=== PATIENT | female | born 1935 | race Caucasian/White ===

== ENCOUNTER 2016-12-16 00:19 | Inpatient (IN) | payer OTHER, MEDICAID ==
[~2016-12-16] VITALS: Ht 167.6 cm; Wt 89.8 kg
[2016-12-16] VITALS (17 sets, daily range): BP systolic 96–150; BP diastolic 41–101; PULSE 51–89; RESP 16–20; TEMP 97.2–98.7; O2SAT 93–100
[~2016-12-16 00:19] MED LIST: ACET325T53 PO; ACET80DR54 GT; ALBU2.5V7 INH; ALPR0.2583 PO; ALPR1TAB7 PO; ANT30 GT; BEN50 PO; BENA20TA2 PO; CARV25TA55 PO; CAT.2 PO; CEL20 GT; CHLO473M5 PO; CLON0.2T PO; CLON0.5T4 GT; CLON1PAT8 TD; DOCU-144 PO; DONE5TAB3 GT; DULR10 RC; FAMO20TA98 PO; FERR-57 GT; FURO40TA5 PO; HYDR-1189 PO; HYDR10SY GT; HYDR25TA4 PO; IPRA0.2S6 INH; KLO.5 PO; LACT1CAP69 GT; LANS30CA10 PO; LEVO100T9 PO; LEVO175T7 PO; LEVO75TA7 GT; LEVOXYL PO; LORA-672 GT; MAGN400O4 GT; MAGN400O4 PO; MORP15TA PO; MORP30TA PO; MORP30TA63 PO; MULT PO; NEBI10TA2 PO; NEBI5TAB3 PO; NIFE-2 GT; OMEP20CA10 PO; VIT500LI PO; WARF2.5T2 PO; ZOLP5TAB7 GT
--- NOTE | 2016-12-16 00:26 | NUR ---
Patient to ER bed 4 to gown for evaluation. Side rails up. Assumed care of pt.
--- NOTE | 2016-12-16 00:28 | NUR ---
Pt brought in by ALS ambulance from [facility] for report of "not looking right". Pt has trach, currently on 3L O2. Pt not able to speak but can mouth words. Pt resting with eyes closed, responds to verbal and physical stimuli. Pt able to mouth that she is in hospital and that she is cold. Pt denies any pain. Asked pt to squeeze fingers, pt able to follow command. Pt respirations even and unlabored. VSS. Will continue to monitor.
[2016-12-16] MEDS ORDERED: KETOROLAC TROMETHAMINE 30 MG VIAL IVP ONE (00:30)
[2016-12-16] MEDS ORDERED: NACL 0.9% 1,000 ML IV ONE (00:30)
--- NOTE | 2016-12-16 00:31 | NUR ---
ER at bedside examining patient.
[2016-12-16 01:15] LABS: MEAN CORPUSCULAR VOLUME 106 fL (79.0-98.0)
[2016-12-16 01:23] LABS: CALCIUM 8.6 mg/dL (8.4-11.0); CHLORIDE 104 mmol/L (98-107); CREATININE 2.82 mg/dL (0.55-1.30); GLUCOSE 115 mg/dL (70-99); HEMATOCRIT 37.4 % (36-48); HEMOGLOBIN 11.7 g/dL (12.0-16.0); MEAN CORPUSCULAR HEMOGLOBIN 33 pg (27-31); MEAN CORPUSCULAR HGB CONC 31 % (32-36); PLATELET COUNT (AUTO) 221 K/uL (130-430); RED BLOOD CELL COUNT(AUTO) 3.54 MIL/uL (4.2-6.2); RED CELL DISTRIBUTION WIDTH 14.6 % (9.0-15.0); SODIUM SERUM 134 mmol/L (136-145); UREA NITROGEN, BLOOD 43 mg/dL (8-21); WHITE BLOOD COUNT (AUTO) 8.2 K/uL (4.8-10.8)
[2016-12-16 01:24] LABS: INR 1.5 (0.8-1.2)
[2016-12-16 01:27] LABS: ALANINE AMINOTRANSFERASE 22 U/L (12-78); ALBUMIN 3.2 g/dL (3.4-4.8); ASPARTATE AMINOTRANSFERASE 17 U/L (10-37); LIPASE 199 U/L (73-393); TOTAL BILIRUBIN 0.2 mg/dL (0.0-1.0); TOTAL PROTEIN, SERUM 7.3 g/dL (6.4-8.3)
[2016-12-16 01:36] LABS: ANION GAP < 3 (5-15); POTASSIUM 6.6 mmol/L (3.5-5.1)
[2016-12-16 01:48] LABS: BAND % (MANUAL) 2 % (0-6); BASOPHILS % (MANUAL) 0 % (0-2); EOSINOPHILS % (MANUAL) 5 % (0-7); LYMPHOCYTES % (MANUAL) 20 % (20-46); MONOCYTES % (MANUAL) 7 % (0-11)
[2016-12-16 01:48] LABS: BILIRUBIN,URINE NEGATIVE (NEGATIVE); CLARITY/URINE SL CLOUDY (CLEAR); COLOR,URINE YELLOW (YELLOW); GLUCOSE,URINE NEGATIVE (NEGATIVE); KETONES,URINE NEGATIVE (NEGATIVE); LEUKOCYTE ESTERASE ,URINE 3+ (NEGATIVE); NITRITE, URINE NEGATIVE (NEGATIVE); PH,URINE 7.5 (5.0-8.0); PROTEIN URINE TRACE (NEGATIVE); UROBILINOGEN,URINE 0.2 (0.2-1.0)
--- NOTE | 2016-12-16 01:59 | NUR ---
Patient resting quietly, no acute changes noted. No acute distress noted. Vital signs within normal range. Will continue to monitor.
[2016-12-16 02:01] LABS: BLOOD, URINE TRACE (NEGATIVE)
[2016-12-16 02:02] LABS: BACTERIA,URINE MODERATE /HPF (None Seen); WBC,URINE 50-80 /HPF (0-3)
[2016-12-16 02:03] LABS: FINE GRANULAR CASTS,URINE 0-10 /LPF (None Seen); MUCUS,URINE None Seen /LPF (None Seen)
[2016-12-16] MEDS ORDERED: DIPHENHYDRAMINE HCL 50 MG CAPSULE PO PRN (03:30)
[2016-12-16] MEDS ORDERED: ZOLPIDEM TARTRATE 5 MG TABLET PO PRN (03:30)
[2016-12-16] MEDS ORDERED: ALBUTEROL SULFATE 0.083% 2.5 MG/3 ML VIAL.NEB INH PRN (03:30)
[2016-12-16] MEDS ORDERED: MILK OF MAGNESIA 30 ML UDC PO PRN (03:30)
[2016-12-16] MEDS ORDERED: HYDROcodone/ACETAMIN 5-325 MG TAB (NORCO/ VICODIN) PO SCH (03:30)
[2016-12-16] MEDS ORDERED: clonazePAM 0.5 MG TABLET PO PRN (03:30)
[2016-12-16] MEDS ORDERED: ACETAMINOPHEN 325 MG TABLET PO PRN (03:30)
--- NOTE | 2016-12-16 03:53 | NUR ---
Patient resting quietly. No acute distress noted. Vital signs within normal range. Will continue to monitor.
[2016-12-16] MEDS ORDERED: IPRATROPIUM/ALBUTEROL SULFATE 3 ML AMPUL.NEB INH ONE (04:00)
[2016-12-16] MEDS ORDERED: SODIUM BICARBONATE 8.4% JECT 50 MEQ/50 ML SYRINGE IVP ONE (04:00)
--- NOTE | 2016-12-16 04:01 | NUR ---
Pt receiving breathing tx in ED. Waiting for tx to finish to transfer pt to the floor.
--- NOTE | 2016-12-16 04:10 | NUR ---
Patient will be admitted to care of . Admitted to Tele unit. Will go to room 131-A. Summary report printed. Report given to REMEDIOS Alonso.
--- NOTE | 2016-12-16 04:19 | NUR ---
ADMIT NOTE Received pt from ER to the floor with a diagnosis of hyperkalemia. Admission process initiated. patient oriented to pain management, safety and call light-teach back done.
--- NOTE | 2016-12-16 05:35 | NUR ---
AM ASSESSMENT Received patient from ER, aox1, has trach with mask @ 3Liters. Patient's vitals stable. Placed on tele monitor, sinus rhythm. IV line to left ac intact and patent, no signs of infiltration noted, patient skin intact, no skin breakdown noted, all belongings accounted for, patient cleaned and repositioned with pillow support, fall and safety precautions in place, will continue to monitor.
[2016-12-16] MEDS: clonazePAM 0.5 MG TABLET PO SCH ×3 (06:00→21:23)
--- NOTE | 2016-12-16 06:15 | NUR ---
NOTES; Patient is confused and agitated at this time. Attempts to pull out trach connection tubing at this time. Eng cath draining well to gravity. Call light in reach. Bed alarm on. Air mattress on. Endorse p care to in coming nurse. Addendum: 12/17/16 at 0755 by Lolly Casper LVN wrong time entry
[2016-12-16] MEDS ORDERED: NS 500 ML IV ONE (06:30)
--- NOTE | 2016-12-16 06:31 | NUR ---
Patient lethargic only responds to painful stimuli, BP low in the 80s and low 90s, paged Dr. Felipe, new orders given and carried out. Patient blood sugar this am of 91.
--- NOTE | 2016-12-16 06:33 | NUR ---
CALLED NEPHROLOGY CONSULT TO DR POLANCO, RE: ANURIA. SPOKE TO GABY
--- NOTE | 2016-12-16 06:57 | NUR ---
RN ROUNDS Patient still lethargic, bolus of NS infusing at this time, BP 92/33, Dr. Felipe called back and ordered stat ABG, called RT. Will endorse to am nurse.
--- NOTE | 2016-12-16 07:30 | NUR ---
CALLED ATTENDING MD DR. MENSAH, RE; CRITICAL ABG. SPOKE TO EMIL
--- NOTE | 2016-12-16 07:34 | NUR ---
CALLED PULMONOLOGY CONSULT TO DR MYERS, RE: CRITICAL ABG. SPOKE TO RAINA
--- NOTE | 2016-12-16 07:35 | NUR ---
AM Rounds/Dr. Felipe and Dr. Soto Paged: Patient is lethargic but reactive to pain. IV infusing well to LUE with no redness or swelling noted to site. Dr. Felipe paged, aware of ABGs. Dr. Soto also paged and aware of ABGs. New orders noted.
[2016-12-16 08:16] LABS: CALCIUM 7.9 mg/dL (8.4-11.0); CHLORIDE 107 mmol/L (98-107); CREATININE 2.55 mg/dL (0.55-1.30); GLUCOSE 107 mg/dL (70-99); SODIUM SERUM 139 mmol/L (136-145); UREA NITROGEN, BLOOD 44 mg/dL (8-21)
[2016-12-16] MEDS: ALBUTEROL SULFATE 0.083% 2.5 MG/3 ML VIAL.NEB INH SCH ×3 (08:17→19:41)
--- NOTE | 2016-12-16 08:30 | NUR ---
Patient Alert: Patient changed to Vent, patient tolerates well. Pt is able to follow commands and respond to questions. Pt is confused and forgetful but alert at this time.
[2016-12-16 08:37] LABS: ANION GAP < 3 (5-15); POTASSIUM 6.2 mmol/L (3.5-5.1)
[2016-12-16 08:46] LABS: ABG TOTAL HEMOGLOBIN 11.2 G/dL (12.0-18.0); BLOOD GAS BASE EXCESS 0.4 mmol/L (-3.0-3.0); BLOOD GAS COHb% 0.4 % (0.5-1.5); BLOOD GAS PH 7.033 (7.350-7.450); BLOOD O2Hb% 97.8 % (94.0-97.0)
[2016-12-16 08:47] LABS: BLOOD GAS HHB 1.2 % (0.0-6.0)
--- NOTE | 2016-12-16 08:53 | NUR ---
CALLED ATTENDING MD DR MENSAH, RE: CRITICAL K LEVEL. SPOKE TO MOISES
[2016-12-16] MEDS: CARVEDILOL 25 MG TABLET (COREG) PO SCH ×2 (09:00→21:24)
[2016-12-16] MEDS ORDERED: SODIUM POLYSTYRENE SULFONATE 15 GM/60 ML UDBTL PO ONE (09:00)
--- NOTE | 2016-12-16 09:06 | NUR ---
Nutrition Update Matias Scale 16 noted. Pt admitted for hyperkalemia. Diet: 2 gm Na BMI: 32 kg/m2 RD to follow per nutrition care standards.
[2016-12-16] MEDS: FAMOTIDINE 20 MG TABLET PO SCH ×2 (09:22→21:23)
[2016-12-16] MEDS: NACL 0.9% 1,000 ML IV SCH ×2 (09:22→17:09)
[2016-12-16] MEDS: CITALOPRAM HYDROBROMIDE 20 MG TABLET GT SCH (09:22)
[2016-12-16] MEDS: DOCUSATE SODIUM 100 MG CAPSULE PO SCH (09:22)
--- NOTE | 2016-12-16 09:40 | NUR ---
RN Rounds: AM meds given per MD order. Pt tolerates well at this time by mouth. No acute signs of distress noted. IV intact, call light in reach. Air mattress on. Continue to monitor.
--- NOTE | 2016-12-16 09:46 | NUR ---
CALLED KADI MYERS, RE: CALVIN RESULT. SPOKE TO PHANI
[2016-12-16 09:57] LABS: BLOOD GAS PH 7.259 (7.350-7.450)
[2016-12-16 09:58] LABS: ABG TOTAL HEMOGLOBIN 11.7 G/dL (12.0-18.0); BLOOD GAS BASE EXCESS -1.3 mmol/L (-3.0-3.0); BLOOD GAS COHb% 0.5 % (0.5-1.5); BLOOD GAS HHB 1.1 % (0.0-6.0)
--- NOTE | 2016-12-16 11:40 | NUR ---
Rounds: Pt sitting semi-fowlers in bed. Vent and trach in place. Call light in reach. No acute signs of distress noted. O2 sat 95% on vent. Aspiration precautions in place. Continue to monitor.
--- NOTE | 2016-12-16 13:04 | NUR ---
Rounds: Pt sitting semi-fowlers in bed. No acute signs of distress noted. Pt tolerates soft foods at this time. Call light in reach. Aspiration precautions in place. Pt continues to follow command at this time. Continue to monitor.
--- NOTE | 2016-12-16 15:04 | NUR ---
CALLED NEPHROLOGY , DR POLANCO, RE: ZERO URINE OUTPUT FOR 7 HOURS. CALLED ON HIS CELL PHONE
--- NOTE | 2016-12-16 16:40 | NUR ---
DENNISON CATH: # [16] FR Dennison catheter with [10] cc bulb inserted with use of sterile technique. Bulb inflated with [10] cc sterile water. Immediate return of [400] cc [CLEAR, YELLOW] urine noted. Bedside drainage bag placed below level of bladder. Pt tolerated procedure [WELL].
[2016-12-16] MEDS ORDERED: cefTRIAXone 1 GM in D5W 50 ML IV SCH (17:00)
[2016-12-16 17:03] LABS: BILIRUBIN,URINE NEGATIVE (NEGATIVE); CLARITY/URINE CLOUDY (CLEAR); COLOR,URINE YELLOW (YELLOW); GLUCOSE,URINE NEGATIVE (NEGATIVE); KETONES,URINE NEGATIVE (NEGATIVE); LEUKOCYTE ESTERASE ,URINE 3+ (NEGATIVE); NITRITE, URINE POSITIVE (NEGATIVE); PH,URINE 8.5 (5.0-8.0); PROTEIN URINE 1+ (NEGATIVE); UROBILINOGEN,URINE 0.2 (0.2-1.0)
[2016-12-16] MEDS: WARFARIN SODIUM 2.5 MG TABLET PO SCH (17:10)
[2016-12-16 17:14] LABS: BLOOD, URINE TRACE (NEGATIVE)
[2016-12-16 17:21] LABS: BACTERIA,URINE MANY /HPF (None Seen); MUCUS,URINE None Seen /LPF (None Seen); WBC,URINE 50-80 /HPF (0-3)
[2016-12-16 17:22] LABS: URINE AMORPHOUS PHOSPHATES 3+ /HPF (None Seen)
--- NOTE | 2016-12-16 17:31 | NUR ---
Rounds: Pt sitting semi-fowlers in bed. Blood sugar checked and coverage given. Oral care provided and patient suctioned. Pt sitting high fowlers in bed. Bed alarm on. Continue to monitor.
[2016-12-16] MEDS ORDERED: WARFARIN SODIUM 2.5 MG TABLET PO SCH (18:00)
--- NOTE | 2016-12-16 18:24 | NUR ---
CALLED ATTENDING , DR MENSAH, RE: RESTRAINTS. SPOKE TO ANA MARIA
--- NOTE | 2016-12-16 18:28 | NUR ---
Closing Note: Dr. Felipe paged. Patient is confused and agitated at this time. Attempts to pull out trach connection tubing at this time. Dr. Felipe paged for restraint orders. Awaiting page back. Eng cath draining well to gravity. Call light in reach. Bed alarm on. Air mattress on. Endorse place of care to NOC RN.
--- NOTE | 2016-12-16 18:50 | NUR ---
Restraints Initiated: Soft bilateral wrists initiated per Dr. Felipe. Adriane (daughter) made aware and is agreeable with restraints.
--- NOTE | 2016-12-16 20:00 | NUR ---
NOTES; SEEN PT IN BED, AWAKE, ORIENTED TO NAME ONLY. PT IS CONFUSED, REORIENTED PT TO PLACE, DATE, TIME, AND SURROUNDING. PT IS ON TRACH TO VENT. PT IS TOLERATING VENT SETTINGS WELL. PT ATTEMPTS TO PULL TRACH TO HARM SELF AND TO PULL TUBINGS. PT IS ON JOSE RAMON SOFT WRIST RESTRAINTS. ABDOMEN SLIGHTLY DISTENDED WITH ACTIVE BOWEL SOUNDS. NOTED ABDOMINAL SURGICAL SCARS. BULGING UPPER ABD NOTED. PALPATED INTERNAL PAIN PUMP TO THE LEFT ABD. REDNESS TO UNDER ARM, UNDER BREAST, ABDOMINAL FOLDS, LEX AND BUTTOCKS AREA. WILL CLEAN PT AND APPLY Z-GUARD BARRIER CREAM. JOSE RAMON ARM DISCOLORATION AND DRYNESS TO JOSE RAMON UPPER EXT AND JOSE RAMON LOWER EXT. DENNISON CATHETER IN PLACE. DENNISON S DRAINING TO GRAVITY YELLOW URINE OUT PUT. JOSE RAMON HEEL REDNESS NOTED. OFF LOADED JOSE RAMON HEELS ON PILLOW SUPPORT. PT IS ON AIR MATTRESS. IV TO THE LEFT AC, NOTED. IV SITE PATENT, DRESSING CLEAN,DRY, AND INTACT. REPOSITIONED WITH PILLOW SUPPORT. DENIES ANY PAIN AT THIS TIME. BED LOCKED AND IN LOW POSITION, SIDE RAILS LOADED FOR SEIZURE PRECAUTION AND UP X3, BED ALARM ON. CALL LIGHT WITHIN REACH. WILL CONTINUE TO MONITOR.
--- NOTE | 2016-12-16 21:00 | NUR ---
NOTES; INCONTINENT OF SOFT BROWN BM. TOTAL BED BATH GIVEN, LINEN CHANGED. NOTED REDNESS TO BILATERAL UNDER ARM, ABDOMINAL FOLD, LEX AND BUTTOCKS AREA. Z-GUARD SKIN BARRIER CREAM TO REDDENED AREAS. JOSE RAMON HEEL WITH REDNESS NOTED. OFF LOAD HEELS WITH PILLOW SUPPORT. REPOSITIONED WILL CONTINUE TO MONITOR.
--- NOTE | 2016-12-16 21:25 | NUR ---
NOTES; IV ON THE LEFT AC WITH CONTINUOUS BEEPING. RESTARTED NEW IV ON THE LEFT HAND, GAUGE 22. ORDERED IVF RESUMED ON THE LEFT HAND. PT TOLERATED IV INSERTION WELL.
[2016-12-16] MEDS: methylPREDNISolone SOD SUCC 40 MG/ML VIAL IVP SCH (21:44)
--- NOTE | 2016-12-16 22:00 | NUR ---
NOTES; PT IS AWAKE, CONTINUALLY ATTEMPTS TO PULL TRACH. JOSE RAMON SOFT WRIST RESTRAINTS TO JOSE RAMON WRIST. PT NODDED NO FOR PAIN. REPOSITIONED. SAFETY MEASURES IN PROGRESS.
[2016-12-16] MEDS: LORazepam 2 MG/ML VIAL IVP PRN (23:01)
--- NOTE | 2016-12-16 23:01 | NUR ---
NOTES; ATIVAN 1 MG IV ADMINISTERED BY RN COVERING FOR AGITATION. WILL CONTINUE TO MONITOR.
--- NOTE | 2016-12-16 23:30 | NUR ---
NOTES; STILL CONFUSED, ATIVAN SLIGHTLY EFFECTIVE. WILL CONTINUE TO MONITOR. SAFETY MEASURES IN PROGRESS.
[2016-12-17] VITALS (17 sets, daily range): BP systolic 154–180; BP diastolic 51–82; PULSE 75–102; RESP 13–18; TEMP 98.2–99.7; O2SAT 97–100
[2016-12-17] MEDS: ALBUTEROL SULFATE 0.083% 2.5 MG/3 ML VIAL.NEB INH SCH ×4 (01:32→19:56)
[2016-12-17] MEDS: clonazePAM 0.5 MG TABLET PO SCH ×3 (05:52→21:53)
[2016-12-17] MEDS: NACL 0.9% 1,000 ML IV SCH (05:52)
[2016-12-17 06:30] LABS: INR 1.9 (0.8-1.2); PROTHROMBIN TIME 21.6 SECS (9.5-12.5)
[2016-12-17 06:34] LABS: BASOPHILS % (AUTO) 0.1 % (0.0-2.0); LYMPHOCYTES # (AUTO) 0.6 K/uL (1.0-5.5); MONOCYTES % (AUTO) 0.4 % (1.7-9.3); NEUTROPHILS # (AUTO) 5.9 K/uL (1.8-7.7); WHITE BLOOD COUNT (AUTO) 6.5 K/uL (4.8-10.8)
--- NOTE | 2016-12-17 06:45 | NUR ---
NOTES; Patient is confused and agitated at this time. Attempts to pull out trach connection tubing at this time. Eng cath draining well to gravity. Call light in reach. Bed alarm on. Air mattress on. Endorse p care to in coming nurse.
[2016-12-17 07:02] LABS: EOSINOPHILS % (AUTO) 0.1 % (0.0-4.0); HEMATOCRIT 29.4 % (36-48); HEMOGLOBIN 9.5 g/dL (12.0-16.0); LYMPHOCYTES % (AUTO) 8.9 % (20.5-51.5); MEAN CORPUSCULAR HEMOGLOBIN 34 pg (27-31); MEAN CORPUSCULAR HGB CONC 32 % (32-36); MEAN CORPUSCULAR VOLUME 104 fL (79.0-98.0); NEUTROPHILS % (AUTO) 90.5 % (40.0-70.0); PLATELET COUNT (AUTO) 163 K/uL (130-430); RED BLOOD CELL COUNT(AUTO) 2.83 MIL/uL (4.2-6.2); RED CELL DISTRIBUTION WIDTH 14.9 % (9.0-15.0)
[2016-12-17 07:14] LABS: ALANINE AMINOTRANSFERASE 20 U/L (12-78); ANION GAP 8 (5-15); ASPARTATE AMINOTRANSFERASE 24 U/L (10-37); CALCIUM 8.2 mg/dL (8.4-11.0); CHLORIDE 106 mmol/L (98-107); CREATININE 2.38 mg/dL (0.55-1.30); GLUCOSE 129 mg/dL (70-99); POTASSIUM 4.1 mmol/L (3.5-5.1); SODIUM SERUM 140 mmol/L (136-145); TOTAL BILIRUBIN 0.3 mg/dL (0.0-1.0); TOTAL PROTEIN, SERUM 6.6 g/dL (6.4-8.3); UREA NITROGEN, BLOOD 41 mg/dL (8-21)
--- NOTE | 2016-12-17 08:00 | NUR ---
NOTE PT RESTING IN BED WITH TRACH ON VENTILATOR AT THIS TIME. NO SOB/RESP DISTRESS OR PAIN/DISCOMFORT WAS NOTED. IV IN LEFT HAND INTACT AND PATENT INFUSING IVF'S AT THIS TIME. DENNISON CATHETER INTACT AND DRAINING. TELE UNIT INTACT AND ATTACHED AT THIS TIME. PT HAS BILATERAL WRIST RESTRAINTS TO STOP PT FROM PULLING TRACH AND IV TUBING AT THIS TIME. PT VERY CONFUSED AND DISRUPTING HER MEDICAL TREATMENTS. CALL LIGHT WITHIN REACH.
[2016-12-17 08:15] LABS: ABG TOTAL HEMOGLOBIN 10.2 G/dL (12.0-18.0); BLOOD GAS BASE EXCESS 2.6 mmol/L (-3.0-3.0); BLOOD GAS COHb% 0.1 % (0.5-1.5); BLOOD GAS HHB 2.4 % (0.0-6.0); BLOOD GAS PH 7.474 (7.350-7.450)
[2016-12-17] MEDS: methylPREDNISolone SOD SUCC 40 MG/ML VIAL IVP SCH ×2 (09:29→21:55)
[2016-12-17] MEDS: CITALOPRAM HYDROBROMIDE 20 MG TABLET GT SCH (09:30)
[2016-12-17] MEDS: DOCUSATE SODIUM 100 MG CAPSULE PO SCH (09:30)
[2016-12-17] MEDS: CARVEDILOL 25 MG TABLET (COREG) PO SCH ×2 (09:30→21:54)
[2016-12-17] MEDS: FAMOTIDINE 20 MG TABLET PO SCH ×2 (09:30→21:54)
--- NOTE | 2016-12-17 10:03 | NUR ---
RT NOTE VENT SETTING CHANGED TO SIMV 8, PS 10, PEEP +5 TOLERATED, PER MD MYERS. NO RES DISTRESS NOTICED. WILL CONTINUE MONITOR PT.
--- NOTE | 2016-12-17 11:15 | NUR ---
NOTE PT CHECKED ON Q1' AND PRN FOR NEEDS AND CARE. PT WAS ASSISTED IN EATING HER BREAKFAST TRAY BY CANCELING AND CUTTING CONTROL CLERK. PT FED LIQUIDS AND FOOD SHE REQUESTS. MEDICATIONS TAKEN WITH NO TROUBLE - CRUSHED WITH APPLE SAUCE. PT HAS HER BREATHING TREATMENTS SCHEDULED THIS AM. CALL LIGHT WITHIN REACH.
--- NOTE | 2016-12-17 11:39 | NUR ---
note pt's daughter Adriane called for an update on her mother.
--- NOTE | 2016-12-17 12:18 | NUR ---
RN reported pt is now on puree diet; pt was previously renal standard diet, finely chopped. RD updated puree diet order w/ renal standard restrictions per RN and alerted FNS staff.
--- NOTE | 2016-12-17 14:35 | NUR ---
NOTE PT HAS BEEN ASLEEP SINCE NOON. DIFFICULT TO AROUSE. PT HAD NO SLEEP LAST NIGHT AND WAS UP THIS MORNING WELL. PT WILL NOT SWALLOW ANY PUREED FOODS OR LIQUIDS AT THIS TIME. LUNCH TRAY AND MEDICATIONS ARE ON HOLD AT THIS TIME TILL PT IS MORE FULLY AWAKE, DUE TO FACT PT MIGHT ASPIRATE AT THIS TIME. CALL LIGHT WITHIN REACH.
[2016-12-17] MEDS: 0.45% NACL 1,000 ML IV SCH (16:30)
[2016-12-17] MEDS: LORazepam 2 MG/ML VIAL IVP PRN (16:57)
[2016-12-17] MEDS: WARFARIN SODIUM 2.5 MG TABLET PO SCH (17:01)
--- NOTE | 2016-12-17 17:05 | NUR ---
NOTE PT WOKE AT 1645, WAS FED SOME PUREED FOOD AND DRINK. PT WAS GIVEN HYGIENE CARE AND NEEDS MET AT THIS TIME. PT'S IVF'S INFUSING WELL THROUGH LEFT HAND IV SITE AT THIS TIME. NO SOB/RESP DISTRESS OR PAIN/DISCOMFORT NOTED AT THIS TIME. CALL LIGHT WITHIN REACH. WRIST RESTRAINTS ARE ON BILATERALLY.
--- NOTE | 2016-12-17 18:05 | NUR ---
NOTE PT DROWSY AND SLEEPY AT THIS TIME. NO SOB/RESP DISTRESS OR PAIN/DISCOMFORT NOTED AT THIS TIME. SAFETY PRECAUTIONS FOR MRSA ISOLATION MAINTAINED ALL SHIFT. PT WAS CHECKED ON Q1' AND PRN ALL SHIFT FOR NEEDS AND CARE. IV IN LEFT HAND INTACT AND PATENT AT THIS TIME. NO NEEDS NOTED AT THIS TIME. CALL LIGHT WITHIN REACH.
--- NOTE | 2016-12-17 19:08 | NUR ---
INITIAL NOTES RECVD PT IN BED, A/A/O X2. NO C/O PAIN AND NO SOB NOTED. PT ON VENTILATOR WITH SETTING AC8,TV,5,FI02 30%,AND PEEEP 5. V/S 114/53, 98.6,84,18,98%. IV NOTED TO L HAND G 22 AND L/A G 20 BOTH FLUSHING WELL AND WITH GOOD BLOOD RETURN. ALL EXTREMITIES ARE WEAK, BED REST. F/C IS PATENT WITH GOOD AMOUNT OF CLEAR YELLOW, URINE. CALL LIGHT WITHIN REACH, WILL CONT TO MONITOR.
[2016-12-17] MEDS ORDERED: MUPIROCIN NASAL 2% OINT. 1 GM NS SCH (21:00)
--- NOTE | 2016-12-17 21:08 | NUR ---
ROUNDS PT IS AWAKE THIS TIME, NO C/O PAIN AND NO SOB NOTED. ASSISTED TO TURN IN BED. BED IN LOW POSITION. CALL LIGHT WITHIN REACH, WILL CONT TO MONITOR.
[2016-12-17] MEDS: cefTRIAXone 1 GM in D5W 50 ML IV SCH (21:53)
[2016-12-17] MEDS: MUPIROCIN 2% TOPICAL OINTMENT 22 GM TP SCH (21:55)
--- NOTE | 2016-12-17 23:08 | NUR ---
BED BATH BED BATH WAS PERFORMED TO PT WITH CLARENCE RAMACHANDRAN. PT HAD A LG AMOUNT OF WATERY STOOL. CALL LIGHT WITHIN REACH, WILL CONT TO MONITOR.
[2016-12-18] VITALS (11 sets, daily range): BP systolic 113–164; BP diastolic 66–86; PULSE 66–92; RESP 15–20; TEMP 96.9–99.4; O2SAT 90–100
[2016-12-18] MEDS: ALBUTEROL SULFATE 0.083% 2.5 MG/3 ML VIAL.NEB INH SCH ×4 (01:00→19:00)
--- NOTE | 2016-12-18 01:08 | NUR ---
ROUNDS PT IS AWAKE @ THIS TIME. NO C/O PAIN AND NO SOB NOTED. ASSISTED TO REPOSITION IN BED. CALL LIGHT WITHIN REACH, WILL CONT TO MONITOR.
--- NOTE | 2016-12-18 03:08 | NUR ---
ADMIN ATIVAN ADMIN ATIVAN PRN FOR ANXIETY, CONSTANTLY MOVING IN BED. WILL CONT TO MONITOR.
[2016-12-18] MEDS: LORazepam 2 MG/ML VIAL IVP PRN (04:05)
--- NOTE | 2016-12-18 05:08 | NUR ---
ROUNDS PT IS RESTING COMFORTABLY. NO S/S OF PAIN OR DISTRESS NOTED. CALL LIGHT WITHIN REACH, WILL CONT TO MONITOR.
[2016-12-18] MEDS: clonazePAM 0.5 MG TABLET PO SCH ×3 (06:00→21:49)
[2016-12-18] MEDS: 0.45% NACL 1,000 ML IV SCH (06:05)
--- NOTE | 2016-12-18 06:52 | NUR ---
FINAL NOTES PT IS COMFORTABLY RESTING @ THIS TIME. NO C/O PAIN AND NO DISTRESS NOTED. V/S ARE WNL. ALL NEEDS MET AND ANTICIPATED BY NOC NURSES. BED IN LOW POSITION AND SIDE RAILS UP X2 FOR SAFETY. CALL LIGHT WITHIN REACH, ENDORSED.
[2016-12-18 06:57] LABS: BASOPHILS % (AUTO) 0.1 % (0.0-2.0); EOSINOPHILS % (AUTO) 0.1 % (0.0-4.0); HEMATOCRIT 30.4 % (36-48); HEMOGLOBIN 9.7 g/dL (12.0-16.0); LYMPHOCYTES # (AUTO) 1.1 K/uL (1.0-5.5); LYMPHOCYTES % (AUTO) 12.4 % (20.5-51.5); MEAN CORPUSCULAR HEMOGLOBIN 33 pg (27-31); MEAN CORPUSCULAR HGB CONC 32 % (32-36); MEAN CORPUSCULAR VOLUME 102 fL (79.0-98.0); MONOCYTES # (AUTO) 0.5 K/uL (0.0-1.0); MONOCYTES % (AUTO) 5.9 % (1.7-9.3); NEUTROPHILS % (AUTO) 81.5 % (40.0-70.0); PLATELET COUNT (AUTO) 190 K/uL (130-430); RED BLOOD CELL COUNT(AUTO) 2.97 MIL/uL (4.2-6.2); RED CELL DISTRIBUTION WIDTH 14.9 % (9.0-15.0)
[2016-12-18 07:05] LABS: ANION GAP 6 (5-15); CALCIUM 8.3 mg/dL (8.4-11.0); CHLORIDE 105 mmol/L (98-107); CREATININE 2.03 mg/dL (0.55-1.30); GLUCOSE 106 mg/dL (70-99); POTASSIUM 3.8 mmol/L (3.5-5.1); SODIUM SERUM 140 mmol/L (136-145); UREA NITROGEN, BLOOD 37 mg/dL (8-21)
[2016-12-18 07:06] LABS: WHITE BLOOD COUNT (AUTO) 8.6 K/uL (4.8-10.8)
--- NOTE | 2016-12-18 07:15 | NUR ---
NRSG: RECEIVED FROM NIGHT NURSE, PATIENT ,AWAKE,ALERT AND CONFUSED AT TIMES. RESPIRATION EVEN AND UNLABORED. LUNGS FINE CRACKLES ON THE BEASE. ON TRACH.PORTEX#7 VIA VENTILATOR, FIO2 30 %,TV 500,SIMV 8 AND PEEP 5 WITH O2 SAT.100%. ABDOMEN SOFT WITH BOWEL SOUNDS X 4 QUADRANTS , HAD DENNISON CATH DRAINING YELLOW URINE. HAD SLIGHT REDNESS ON THE BUTTOM AND Z GUARD APPLIED. BOTH LOWER EXTREMITIES SWOLLEN 1+ EDEMA. ON AIR MATTRESS . TURNED Q 2 HRS. AND CALL LIGHT WITHIN REACH. PATIENT REFUSED FOR ABG DRAW FROM RT. WILL INFORM DR. MYERS. IVF ON PROGRESS ON THE LEFT HAND ,INTACT AND INPLACED AND NO REDNESS , NO SWELLING.WILL CONTINUE TO ASSESS PATIENT PATIENT IS ON SINUS RHYTHMN ON THE MONITOR.
[2016-12-18] MEDS: MUPIROCIN 2% TOPICAL OINTMENT 22 GM TP SCH ×3 (09:00→21:48)
[2016-12-18] MEDS: HYDROcodone/ACETAMIN 5-325 MG TAB (NORCO/ VICODIN) PO PRN ×2 (09:15→22:05)
[2016-12-18] MEDS: DOCUSATE SODIUM 100 MG CAPSULE PO SCH (09:16)
[2016-12-18] MEDS: CITALOPRAM HYDROBROMIDE 20 MG TABLET GT SCH (09:16)
[2016-12-18] MEDS: FAMOTIDINE 20 MG TABLET PO SCH ×2 (09:17→21:48)
[2016-12-18] MEDS: CARVEDILOL 25 MG TABLET (COREG) PO SCH ×2 (09:17→21:49)
[2016-12-18] MEDS: methylPREDNISolone SOD SUCC 40 MG/ML VIAL IVP SCH ×2 (09:33→21:48)
--- NOTE | 2016-12-18 09:42 | NUR ---
Notes Patient was mouthing words and I was not able to make out what she was saying. Pencil and paper provided. Patient wrote "Did the sell the [id number]" and "I have never seen A", then proceeded to pull on her eyes. Confirmed if she meant Asians and she nodded in agreement that she does not want staff to provide care. Charge nurse Dm notified.
--- NOTE | 2016-12-18 10:52 | NUR ---
ROUNDS: SEEN AND EXAMINED BY DR. MYERS WITH NEW ORDERS AND NOTIFIED REGARDING THE REFUSAL OF ABG DRAW.
--- NOTE | 2016-12-18 12:00 | NUR ---
ACTIVITY: TURNED TO SIDE, NO C/O OF PAIN.REMAINS ON VENTILATOR.
--- NOTE | 2016-12-18 13:16 | NUR ---
ROUNDS: SEEN AND EXAMINED BY DR. MENSAH AND AWARE OF THE MDRO RESULT FROM URINE .
--- NOTE | 2016-12-18 14:00 | NUR ---
NEUROSTATUS: AWAKE,AND CONFUSED AT THIS TIME. NO C/O OF PAIN . DOES NOT WANT TO BE BOTHERED.
--- NOTE | 2016-12-18 16:00 | NUR ---
VISITOR: DAUGHTER AT THE BEDSIDE AND BROUGHT DIET SODA AT TH BEDSIDE.
--- NOTE | 2016-12-18 18:00 | NUR ---
DIET: DAUGHTER AT THE BEDSIDE REQUESTED TO CALL DR. MENSAH TO CHANGE DIET TO REGULAR AND DR. MENSAH WAS PAGED WITH NEW ORDER.
[2016-12-18] MEDS: WARFARIN SODIUM 2.5 MG TABLET PO SCH (18:08)
--- NOTE | 2016-12-18 19:45 | NUR ---
CLOSING: PATIENT IS SLEEPING COMFORTABLY WHILE GIVING REPORT AT THE BEDSIDE. STILL WITH SAME VENTILATOR SETTING AND OFF OF SOFT RESTRAINT.
--- NOTE | 2016-12-18 20:00 | NUR ---
PM Round Pt awake alert oriented x 3. Name, and place. Pt on trache collar. Passy muri at bedside noted, Pt refused to place it during speaking. IV on the left AC 20g, infusing 1/2 NS at 50ml/hr. patent. Denuded skin noted on the sanjeev area. will apply z- gurad when sanjeev care provided. Seizure precaution on the side rails in place. HOB 30 degrees for aspiration precaution, Bilateral heel floated with pillow support. Pt refused to provide oral care, But requested to tracheal suction, small, harkins, thick output noted. Safety precaution in place. Bed in the lowest position, locked. call light within reach. Continued to maintain contact precaution. will continue to monitor
[2016-12-18] MEDS: cefTRIAXone 1 GM in D5W 50 ML IV SCH (21:48)
--- NOTE | 2016-12-18 22:00 | NUR ---
Note pt bed bath provided. CHG bath given per hospital policy. Z-guard applied on the sanjeev area for skin precaution.comfort needs met. heels floating, call light in reach. will continue to monitor
[2016-12-19] MEDS: ALBUTEROL SULFATE 0.083% 2.5 MG/3 ML VIAL.NEB INH SCH ×3 (01:00→19:35)
[2016-12-19] MEDS: HYDROcodone/ACETAMIN 5-325 MG TAB (NORCO/ VICODIN) PO PRN ×2 (03:25→08:23)
[2016-12-19] MEDS: 0.45% NACL 1,000 ML IV SCH ×2 (04:35→14:06)
[2016-12-19] MEDS: clonazePAM 0.5 MG TABLET PO SCH ×3 (05:59→22:09)
--- NOTE | 2016-12-19 06:30 | NUR ---
Closing note Pt awake alert. Blood sugar level of 165 mg/dL. Hourly rounds done throughout the shift. Comfort needs met throughout the shift. call light within reach. will endorse AM shift nurse via SBAR method to continue care. educated to use call light for assistance. verbalized understanding. call light in reach.
[2016-12-19 06:53] LABS: ANION GAP 7 (5-15); CALCIUM 8.2 mg/dL (8.4-11.0); CHLORIDE 104 mmol/L (98-107); CREATININE 2.13 mg/dL (0.55-1.30); GLUCOSE 183 mg/dL (70-99); POTASSIUM 4.2 mmol/L (3.5-5.1); SODIUM SERUM 139 mmol/L (136-145); UREA NITROGEN, BLOOD 37 mg/dL (8-21)
[2016-12-19 06:54] LABS: BASOPHILS % (AUTO) 0.1 % (0.0-2.0); HEMATOCRIT 30.6 % (36-48); HEMOGLOBIN 9.7 g/dL (12.0-16.0); LYMPHOCYTES # (AUTO) 0.6 K/uL (1.0-5.5); LYMPHOCYTES % (AUTO) 7.6 % (20.5-51.5); MEAN CORPUSCULAR HEMOGLOBIN 33 pg (27-31); MEAN CORPUSCULAR HGB CONC 32 % (32-36); MEAN CORPUSCULAR VOLUME 104 fL (79.0-98.0); MONOCYTES # (AUTO) 0.1 K/uL (0.0-1.0); MONOCYTES % (AUTO) 0.8 % (1.7-9.3); NEUTROPHILS # (AUTO) 7.5 K/uL (1.8-7.7); NEUTROPHILS % (AUTO) 91.5 % (40.0-70.0); PLATELET COUNT (AUTO) 180 K/uL (130-430); RED BLOOD CELL COUNT(AUTO) 2.95 MIL/uL (4.2-6.2); RED CELL DISTRIBUTION WIDTH 15.3 % (9.0-15.0); WHITE BLOOD COUNT (AUTO) 8.2 K/uL (4.8-10.8)
[2016-12-19 07:32] LABS: ABG TOTAL HEMOGLOBIN 10.5 G/dL (12.0-18.0); BLOOD GAS BASE EXCESS 0.4 mmol/L (-3.0-3.0); BLOOD GAS COHb% 0.3 % (0.5-1.5); BLOOD GAS PH 7.291 (7.350-7.450); BLOOD O2Hb% 97.5 % (94.0-97.0)
[2016-12-19 07:33] LABS: BLOOD GAS HHB 1.6 % (0.0-6.0)
[2016-12-19 08:00] VITALS: BP 147/76; PULSE 74; RESP 16; TEMP 97.6; O2SAT 95
--- NOTE | 2016-12-19 08:00 | NUR ---
OPENING NOTE: RECEIVED REPORT FROM NIGHT NURSE. PATIENT IS RESTING COMFORTABLY IN BED. NO S/S OF DISTRESS OR SOB. PATIENT IS ALERT AND ORIENTED, ABLE TO EXPRESS NEEDS, AND ASK FOR ASSISTANCE. VITAL SIGNS WNL, ASSESSMENT COMPLETE. C/O OF PAIN AND PAIN MEDICATION WILL BE GIVEN. DENNISON DRAINING TO GRAVITY. IV IS PATENT AND INFUSING. CALL LIGHT IN REACH, BED IN LOWEST POSITION, AND WILL CONTINUE TO MONITOR.
--- NOTE | 2016-12-19 08:03 | NUR ---
Critical lab reported critical labs of ph and co2 to Dr. Soto. Orders received to bring down the 02 and keep saturations betwee 88 and 93%.
[2016-12-19] MEDS: methylPREDNISolone SOD SUCC 40 MG/ML VIAL IVP SCH (08:22)
[2016-12-19] MEDS: CITALOPRAM HYDROBROMIDE 20 MG TABLET GT SCH (08:22)
[2016-12-19] MEDS: DOCUSATE SODIUM 100 MG CAPSULE PO SCH (08:23)
[2016-12-19] MEDS: CARVEDILOL 25 MG TABLET (COREG) PO SCH ×2 (08:23→22:10)
[2016-12-19] MEDS: MUPIROCIN 2% TOPICAL OINTMENT 22 GM TP SCH ×3 (08:24→22:14)
[2016-12-19] MEDS: FAMOTIDINE 20 MG TABLET PO SCH ×2 (08:24→22:10)
--- NOTE | 2016-12-19 10:06 | NUR ---
NOTE: PATIENT IS RESTING COMFORTABLY IN BED. NO S/S OF DISTRESS OR SOB. PATIENT IS ALERT AND ORIENTED, ABLE TO EXPRESS NEEDS, AND ASK FOR ASSISTANCE. CALL LIGHT IN REACH, BED IN LOWEST POSITION, AND WILL CONTINUE TO MONITOR.
[2016-12-19] MEDS ORDERED: *TOBRAMYCIN PER PHARMACY XX PRN (11:30)
[2016-12-19 12:14] VITALS: BP 154/81; PULSE 74; RESP 18; TEMP 97.6; O2SAT 100
[2016-12-19 13:33] VITALS: BP 147/76; PULSE 74
[2016-12-19] MEDS ORDERED: NS IV SCH (14:00)
[2016-12-19] MEDS ORDERED: TOBRAMYCIN SULFATE IV SCH (14:00)
[2016-12-19 17:39] VITALS: BP 188/79; PULSE 77; RESP 17; TEMP 98.6; O2SAT 100
--- NOTE | 2016-12-19 17:43 | NUR ---
TRACH CARE DONE, TRACH TIES CHANGED, PT TOLERATING WELL. SX MODERATE WHITE TK SECRETIONS. Addendum: 12/19/16 at 1744 by Nichelle Mensah RT Amended: Links added.
[2016-12-19] MEDS: WARFARIN SODIUM 2.5 MG TABLET PO SCH (18:20)
--- NOTE | 2016-12-19 18:58 | NUR ---
CLOSING NOTE: PATIENT IS RESTING COMFORTABLY IN BED. NO S/S OF DISTRESS OR SOB. PATIENT IS ALERT AND ORIENTED, ABLE TO EXPRESS NEEDS, AND ASK FOR ASSISTANCE. CALL LIGHT IN REACH, BED IN LOWEST POSITION, AND WILL GIVE REPORT TO NIGHT NURSE.
[2016-12-19 20:00] VITALS: BP 163/73; PULSE 77; RESP 18; TEMP 98; O2SAT 100
--- NOTE | 2016-12-19 20:10 | NUR ---
Initial note Alert, awake, and Oriented x 3, no SOB, no chest pain, denied pain. Skin warm to touch, IV # 20 at L AC, and IV #22 at L wrist, both IV patent and free of infection or infiltration. Continued 1/2 NS @ 30 ml/hr. Diminished lungs sounds at lower lobes. Trach in place with 1 L O2. +1 edema at L foot and trace edema at R foot with +2 radial and pedal pulses. Active bowel sounds present all quadrants. F/C in place, clean yellow urine in the collecting bag. Good appetite, need minimal retail store assistant for feeding. Contact isolation for MRSA-nasal. Call light within reach, will continue to monitor patient.
--- NOTE | 2016-12-19 22:00 | NUR ---
Round Alert, awake, and Oriented x 3, no SOB, no chest pain, denied pain. Skin warm to touch, IV # 20 at L AC, and IV #22 at L wrist, both IV patent and free of infection or infiltration. Rocephin IV given. No ASE. Diminished lungs sounds at lower lobes. Trach in place with 1 L O2. +1 edema at L foot and trace edema at R foot with +2 radial and pedal pulses. Active bowel sounds present all quadrants. F/C in place, clean yellow urine in the collecting bag. Loose BM x 1, pericare provided. Contact isolation for MRSA-nasal. Call light within reach, will continue to monitor patient.
[2016-12-19] MEDS: cefTRIAXone 1 GM in D5W 50 ML IV SCH (22:09)
[2016-12-19] MEDS: PREDNISONE 20 MG TABLET PO SCH (22:10)
--- NOTE | 2016-12-20 00:05 | NUR ---
Round Alert, awake, and Oriented x 3, no SOB, no chest pain, denied pain. Skin warm to touch, IV # 20 at L AC, and IV #22 at L wrist, both IV patent and free of infection or infiltration. Continued 1/2 NS @ 30 ml/hr. Diminished lungs sounds at lower lobes. Trach in place with 1 L O2. +1 edema at L foot and trace edema at R foot with +2 radial and pedal pulses. Active bowel sounds present all quadrants. F/C in place, clean yellow urine in the collecting bag. Contact isolation for MRSA-nasal. Education provided. Call light within reach, will continue to monitor patient.
[2016-12-20] MEDS: ALBUTEROL SULFATE 0.083% 2.5 MG/3 ML VIAL.NEB INH SCH ×4 (01:10→19:09)
[2016-12-20 01:19] VITALS: BP 183/91; PULSE 81; RESP 19; TEMP 97.2; O2SAT 100
--- NOTE | 2016-12-20 02:09 | NUR ---
round notes: pt is still awake, alert. pt stated that she is anxious. bp 174/84. hr-83. explain side effects of ativan. needs attended. will monitor.
[2016-12-20] MEDS: LORazepam 2 MG/ML VIAL IVP PRN (02:14)
--- NOTE | 2016-12-20 02:31 | NUR ---
ariella paulson- report pt bp174/94. order clonidine 0.1mg po [id number] for sbp>160.
[2016-12-20] MEDS ORDERED: cloNIDine HCL 0.1 MG TABLET PO PRN (02:45)
[2016-12-20 04:00] VITALS: BP 169/79; PULSE 75; RESP 19; TEMP 97.4; O2SAT 96
--- NOTE | 2016-12-20 04:15 | NUR ---
Round Alert, awake, and Oriented x 3, no SOB, no chest pain, denied pain. Sleeping/resting in bed. Skin warm to touch, IV # 20 at L AC, and IV #22 at L wrist, both IV patent and free of infection or infiltration. Continued 1/2 NS @ 30 ml/hr. Diminished lungs sounds at lower lobes. Trach in place with 1 L O2. Edema noted on BLE. Active bowel sounds present all quadrants. F/C in place, clean yellow urine in the collecting bag. Contact isolation for MRSA-nasal, MDRO-sputum/urine. Call light within reach, will continue to monitor patient.
[2016-12-20] MEDS: clonazePAM 0.5 MG TABLET PO SCH ×3 (06:08→21:04)
--- NOTE | 2016-12-20 06:15 | NUR ---
Closing note Alert, awake, and Oriented x 3, no SOB, no chest pain, denied pain. No s/s of hyper or hypoglycemia. Skin warm to touch, IV # 20 at L AC, and IV #22 at L wrist, both IV patent and free of infection or infiltration. Continued 1/2 NS @ 30 ml/hr. Diminished lungs sounds at lower lobes. Trach in place with 1 L O2. Edema noted on BLE. Active bowel sounds present all quadrants. F/C in place, clean yellow urine in the collecting bag. Contact isolation for MRSA-nasal, MDRO-sputum/urine. Education provided. Call light within reach, will continue to monitor patient.
[2016-12-20 07:03] LABS: BASOPHILS % (AUTO) 0.4 % (0.0-2.0); EOSINOPHILS % (AUTO) 0.1 % (0.0-4.0); HEMATOCRIT 30.8 % (36-48); HEMOGLOBIN 9.4 g/dL (12.0-16.0); LYMPHOCYTES # (AUTO) 0.7 K/uL (1.0-5.5); LYMPHOCYTES % (AUTO) 6.8 % (20.5-51.5); MEAN CORPUSCULAR HEMOGLOBIN 32 pg (27-31); MEAN CORPUSCULAR HGB CONC 31 % (32-36); MEAN CORPUSCULAR VOLUME 103 fL (79.0-98.0); MONOCYTES # (AUTO) 0.4 K/uL (0.0-1.0); MONOCYTES % (AUTO) 4.1 % (1.7-9.3); NEUTROPHILS # (AUTO) 9.4 K/uL (1.8-7.7); NEUTROPHILS % (AUTO) 88.6 % (40.0-70.0); PLATELET COUNT (AUTO) 176 K/uL (130-430); RED BLOOD CELL COUNT(AUTO) 2.98 MIL/uL (4.2-6.2); RED CELL DISTRIBUTION WIDTH 14.9 % (9.0-15.0); WHITE BLOOD COUNT (AUTO) 10.6 K/uL (4.8-10.8)
[2016-12-20 07:13] LABS: ANION GAP 5 (5-15); CALCIUM 8.1 mg/dL (8.4-11.0); CHLORIDE 105 mmol/L (98-107); CREATININE 2.07 mg/dL (0.55-1.30); GLUCOSE 118 mg/dL (70-99); POTASSIUM 4.4 mmol/L (3.5-5.1); SODIUM SERUM 139 mmol/L (136-145); UREA NITROGEN, BLOOD 43 mg/dL (8-21)
--- NOTE | 2016-12-20 07:20 | NUR ---
Informed AM nurse to downgrade to [place] and DC planning.
--- NOTE | 2016-12-20 07:30 | NUR ---
AM ROUNDS: No s/s of distress noted. Will continue to monitor.
[2016-12-20 07:33] LABS: INR 2.1 (0.8-1.2); PROTHROMBIN TIME 23.3 SECS (9.5-12.5)
[2016-12-20] MEDS: FAMOTIDINE 20 MG TABLET PO SCH ×2 (08:10→21:03)
[2016-12-20] MEDS: DOCUSATE SODIUM 100 MG CAPSULE PO SCH (08:10)
[2016-12-20] MEDS: MUPIROCIN 2% TOPICAL OINTMENT 22 GM TP SCH ×2 (08:10→21:03)
[2016-12-20] MEDS: CITALOPRAM HYDROBROMIDE 20 MG TABLET GT SCH (08:10)
[2016-12-20] MEDS: CARVEDILOL 25 MG TABLET (COREG) PO SCH ×2 (08:11→21:04)
[2016-12-20] MEDS: PREDNISONE 20 MG TABLET PO SCH ×2 (08:11→21:04)
[2016-12-20 09:15] VITALS: BP 111/51; PULSE 71; RESP 14; TEMP 97.2; O2SAT 98
--- NOTE | 2016-12-20 09:50 | NUR ---
COMMUNICATION: Spoke with Dr. Felipe regarding downgrade and d/c planning. States to call Dr. Soto.
--- NOTE | 2016-12-20 10:08 | NUR ---
COMMUNICATION: Spoke with Dr. Soto about downgrade and d/c planning. States she is reviewing the chart.
--- NOTE | 2016-12-20 10:08 | NUR ---
PATIENT RESTING: Patient resting quietly. No acute distress noted. Vital signs within normal range.
--- NOTE | 2016-12-20 10:56 | NUR ---
DISCHARGE PLANNING DC planning back to [facility] tomorrow. Faxed referral to [facility] [phone]. will follow up. Addendum: 12/20/16 at 1116 by Noa Dang DP DC Planning order for LTAC evaluation [facility]. Faxed DC Planning order to [facility] office [phone]. Notified [facility] . Addendum: 12/20/16 at 9463 by Noa Dang DP spoke with [facility] patient accepted at [facility] and will request for bed assignment. Called and spoke with patient daughter Adriane Humphreys [phone] live in [place], agreeable with discharge plan. Adriane did not need call back with time ambulance will be arranged and stated she will not be available tomorrow because she will be traveling. DCP will call Adriane and leave detailed message with time ambulance will be arranged with bed assignment and facility phone number. Placed transportation packet in nurses station pending discharge order and bed assignment.
[2016-12-20 11:05] VITALS: BP 121/63; PULSE 68; RESP 12; TEMP 98.3; O2SAT 90
[2016-12-20] MEDS: 0.45% NACL 1,000 ML IV SCH (11:51)
--- NOTE | 2016-12-20 12:05 | NUR ---
PATIENT RESTING: Patient resting quietly. No acute distress noted. Vital signs within normal range.
--- NOTE | 2016-12-20 14:00 | NUR ---
PATIENT RESTING: Patient resting quietly. No acute distress noted. Vital signs within normal range.
--- NOTE | 2016-12-20 16:04 | NUR ---
PATIENT RESTING: Patient resting quietly. No acute distress noted. Vital signs within normal range.
[2016-12-20 16:14] VITALS: Ht 167.6 cm; Wt 89.8 kg
[2016-12-20 16:43] VITALS: BP 124/65; PULSE 66; RESP 20; TEMP 98; O2SAT 96
[2016-12-20] MEDS: WARFARIN SODIUM 2.5 MG TABLET PO SCH (17:42)
--- NOTE | 2016-12-20 18:00 | NUR ---
COMMUNICATION: Spoke with patient regarding transfer to [facility]. Patient stated she hated [facility] and is never going there. Informed Dr. Arreaga, states he will call daughter Adriane.
--- NOTE | 2016-12-20 18:31 | NUR ---
CLOSING NOTE: All needs met. No change in assessment. Will endorse to NOC shift nurse. Addendum: 12/20/16 at 1850 by Chirag Fabian RN Disregard. Note meant for another patient.
--- NOTE | 2016-12-20 18:47 | NUR ---
PAGED: I PAGED DR. MAKENNA DELGADO @ [phone] I SPOKE WITH LORE KIRK @ [phone]
--- NOTE | 2016-12-20 18:50 | NUR ---
CLOSING NOTE: Patient is refusing transfer to [facility]. Dr. Felipe called back. Wants further education to the patient on the situation. Dr. Felipe states that he spoke with [facility] and that there is no bed available since the patient is categorized as subacute. [facility] is the preferred facility of the patient.
--- NOTE | 2016-12-20 20:19 | NUR ---
TRANSFER ACKNOWLEDGEMENT/REPORT TO [facility] Spoke to pt.'s daughter and Adriane CHAU [phone] regarding pt.'s transfer to [facility]; pt.'s daughter said she is aware and is agreeable and was in communication with Dr. Felipe today. She also stated her mother will refuse transfer but she "always does that" because she "doesn't like change" but "please transfer her and I will see her at [place]." Witnessed transfer acknowledgement with [facility]. Spoke to Shayla, nursing briar shop supervisor from [facility] [phone] to give report. Stated pt. has been assigned bed 303A. I told her I will call back with ambulance ETA.
[2016-12-20 20:25] VITALS: BP 127/67; PULSE 65; RESP 20; TEMP 98.5; O2SAT 95
[2016-12-20] MEDS: cefTRIAXone 1 GM in D5W 50 ML IV SCH (21:03)
[2016-12-20] MEDS: HYDROcodone/ACETAMIN 5-325 MG TAB (NORCO/ VICODIN) PO PRN (21:41)
--- NOTE | 2016-12-20 21:41 | NUR ---
PAIN Late entry due to pt. care. Pt. c/o "03/18" pain to buttocks and toes. Pt. medicated with [place] PO as ordered PRN for moderate pain. No s/s of acute distress. Incontinence care done. Pt. tolerated well.
--- NOTE | 2016-12-20 22:50 | NUR ---
DISCHARGE/TRANSITIONAL CARE TO [facility] Transitional care instructions given but pt. is confused and unable. Exit Care provided. Patient in stable condition, ID band removed. IV catheter to left hand and left a/c was maintained as requested by Shayla, nursing aerosol supervisor at [facility]. 24 hour report included in packet. Transfer acknowledgement by Adriane Humphreys (POA and daughter) was signed and placed in pt.'s chart/packet. All belongings sent with patient. Pt. transferred via [facility] ambulance. Report given to Amado.
[2016-12-26 10:42] LABS: BLOOD GAS PH 7.315 (7.350-7.450)
[2016-12-26 10:43] LABS: BLOOD GAS BASE EXCESS 1.9 mmol/L (-3.0-3.0); BLOOD GAS COHb% 0.3 % (0.5-1.5); BLOOD GAS HHB 1.4 % (0.0-6.0); BLOOD O2Hb% 98.2 % (94.0-97.0)
== END 2016-12-20 22:50 | DRG 208 ==
LOC: SED 00:19 → SMU 03:30 → STU 04:10 → OBSVTOIN 08:56 → SMU 12-20 14:45 → UNDODISIN 12-20 20:19
PROVIDERS: ADMIT Family Medicine; ATTEND Family Medicine
PROC: 5A1945Z Respiratory Ventilation, 24-96 Consecutive Hours (ICD-10-PCS; principal; 2016-12-16)
DX: J96.22 Acute and chronic respiratory failure with hypercapnia (principal); G93.41 Metabolic encephalopathy; N17.0 Acute kidney failure with tubular necrosis; N39.0 Urinary tract infection, site not specified; K31.6 Fistula of stomach and duodenum; N18.5 Chronic kidney disease, stage 5; I13.2 Hypertensive heart and chronic kidney disease with heart failure and with stage 5 chronic kidney disease, or end stage renal disease; I50.42 Chronic combined systolic (congestive) and diastolic (congestive) heart failure; D63.8 Anemia in other chronic diseases classified elsewhere; E03.9 Hypothyroidism, unspecified; E11.22 Type 2 diabetes mellitus with diabetic chronic kidney disease; E87.5 Hyperkalemia; G89.4 Chronic pain syndrome; J44.9 Chronic obstructive pulmonary disease, unspecified; K57.90 Diverticulosis of intestine, part unspecified, without perforation or abscess without bleeding; F32.9 Major depressive disorder, single episode, unspecified; F41.9 Anxiety disorder, unspecified; K21.9 Gastro-esophageal reflux disease without esophagitis; E87.6 Hypokalemia; B96.4 Proteus (mirabilis) (morganii) as the cause of diseases classified elsewhere; E66.01 Morbid (severe) obesity due to excess calories; Z74.01 Bed confinement status; Z85.828 Personal history of other malignant neoplasm of skin; Z86.718 Personal history of other venous thrombosis and embolism; Z87.891 Personal history of nicotine dependence; Z93.0 Tracheostomy status; Z79.01 Long term (current) use of anticoagulants; Z79.899 Other long term (current) drug therapy; Z22.322 Carrier or suspected carrier of Methicillin resistant Staphylococcus aureus; Z68.32 Body mass index [BMI] 32.0-32.9, adult
CPT/HCPCS: 36415; 36600; 71010; 80048; 80053; 81000-TC; 82803-TC; 82962; 83605; 83690-TC; 83880; 84132-TC; 84484; 85007; 85025; 85027; 85610-TC; 87070-TC; 87081; 87086; 87186-TC; 87205-TC; 93005; 93306; 94002; 94003; 94640; 94760; 96361; 96374; 96375; 99285; G0378; J0696; J1030; J1885; J2060; J3260; J7030; J7040; J7042; J7060; J7512

== ENCOUNTER 2022-01-15 09:43 | Inpatient (IN) | payer OTHER, MEDICAID ==
[~2022-01-15] VITALS: Ht 157.5 cm; Wt 59.4 kg
[~2022-01-15 09:43] MED LIST changes: -ACET80DR54 GT; -ALPR0.2583 PO; -ALPR1TAB7 PO; -BENA20TA2 PO; -CAT.2 PO; -CHLO473M5 PO; -CLON0.2T PO; -CLON0.5T4 GT; -CLON1PAT8 TD; -DONE5TAB3 GT; +FAMO-132 PO; -FAMO20TA98 PO; -FERR-57 GT; -FURO40TA5 PO; -HYDR-1189 PO; +HYDR-3919 PO; -HYDR10SY GT; -HYDR25TA4 PO; -IPRA0.2S6 INH; -LACT1CAP69 GT; -LANS30CA10 PO; -LEVO100T9 PO; -LEVO75TA7 GT; -LEVOXYL PO; -LORA-672 GT; -MAGN400O4 GT; -MAGN400O4 PO; +MOM PO; -MORP15TA PO; -MORP30TA PO; -MORP30TA63 PO; -NEBI10TA2 PO; -NEBI5TAB3 PO; -NIFE-2 GT; -OMEP20CA10 PO; +OMEP20CA15 PO; -ZOLP5TAB7 GT
[2022-01-15 09:47] VITALS: BP_SYST 117
--- NOTE | 2022-01-15 09:48 | NUR ---
Patient refuses stright catheter for urine sample, patient unable to void on her own.
--- NOTE | 2022-01-15 09:49 | NUR ---
Patient BIB by [facility] from [facility], per facility C/C general weakness, weight loss of 16 lbs in one month, poor po intake, and has been refusing po medication for possible PNA infection. Patient is AOx3-4, able to answer all questions approp.
--- NOTE | 2022-01-15 09:51 | NUR ---
Skin Assessment: MASD to left buttock, dressing in place. BLE/BUE eccymosis, dry flaky skin, cool to touch. Afebrile.
--- NOTE | 2022-01-15 09:53 | NUR ---
Lab at bedside
--- NOTE | 2022-01-15 09:56 | NUR ---
MD SALAS AT BEDSIDE ASSESSING PT.
[2022-01-15] MEDS ORDERED: NACL 0.9% 1,000 ML IV ONE (10:00)
--- NOTE | 2022-01-15 10:15 | NUR ---
22G PIV placed to Left AC
[2022-01-15 10:19] LABS: EOSINOPHILS # (AUTO) 0.1 K/uL (0.0-0.4); HEMATOCRIT 27.1 % (36-48); HEMOGLOBIN 8.9 g/dL (12.0-16.0); LYMPHOCYTES # (AUTO) 0.5 K/uL (1.0-5.5); LYMPHOCYTES % (AUTO) 5.4 % (20.5-51.5); MEAN CORPUSCULAR HEMOGLOBIN 33 pg (27-31); MEAN CORPUSCULAR HGB CONC 33 % (32-36); MEAN CORPUSCULAR VOLUME 99 fL (79.0-98.0); MONOCYTES # (AUTO) 0.6 K/uL (0.0-1.0); MONOCYTES % (AUTO) 6.1 % (1.7-9.3); PLATELET COUNT (AUTO) 319 K/uL (130-430); RED BLOOD CELL COUNT(AUTO) 2.72 MIL/uL (4.2-6.2); RED CELL DISTRIBUTION WIDTH 15.6 % (9.0-15.0)
[2022-01-15 10:25] LABS: NEUTROPHILS % (AUTO) 86.6 % (40.0-70.0)
[2022-01-15 10:26] LABS: BASOPHILS # (AUTO) 0.1 K/uL (0.0-0.2); BASOPHILS % (AUTO) 0.9 % (0.0-2.0); NEUTROPHILS # (AUTO) 8.7 K/uL (1.8-7.7)
--- NOTE | 2022-01-15 10:41 | NUR ---
xray at bedside
--- NOTE | 2022-01-15 10:41 | NUR ---
Placed patient onto bedpan, urine collected and brought to lab
[2022-01-15 10:48] LABS: INR 1.1 (0.8-1.2); PROTHROMBIN TIME 11.7 SECS (9.5-12.5)
[2022-01-15 11:01] LABS: POTASSIUM 4.6 mmol/L (3.5-5.1); SODIUM SERUM 135 mmol/L (136-145)
[2022-01-15 11:02] LABS: ALANINE AMINOTRANSFERASE 13 U/L (12-78); ANION GAP 3 (5-15); ASPARTATE AMINOTRANSFERASE 24 U/L (10-37); CALCIUM 8.7 mg/dL (8.4-11.0); CHLORIDE 99 mmol/L (98-107); CREATININE 1.95 mg/dL (0.55-1.30); GLUCOSE 105 mg/dL (70-99); TOTAL BILIRUBIN 0.2 mg/dL (0.0-1.0); UREA NITROGEN, BLOOD 29 mg/dL (8-21)
[2022-01-15 11:03] LABS: ALBUMIN 1.6 g/dL (3.4-4.8); LIPASE 54 U/L (73-393)
--- NOTE | 2022-01-15 11:17 | NUR ---
Repositioned patient to left side with pillow support
[2022-01-15 11:23] LABS: BILIRUBIN,URINE 1+ (NEGATIVE); BLOOD, URINE NEGATIVE (NEGATIVE); CLARITY/URINE CLOUDY (CLEAR); COLOR,URINE YELLOW (YELLOW); GLUCOSE,URINE NEGATIVE (NEGATIVE); KETONES,URINE NEGATIVE (NEGATIVE); LEUKOCYTE ESTERASE ,URINE 1+ (NEGATIVE); NITRITE, URINE NEGATIVE (NEGATIVE); PROTEIN URINE NEGATIVE (NEGATIVE); UROBILINOGEN,URINE 0.2 (0.2-1.0)
[2022-01-15 11:55] LABS: BACTERIA,URINE MODERATE /HPF (None Seen); RBC,URINE 0-3 /HPF (0-3)
--- NOTE | 2022-01-15 12:00 | NUR ---
RECEIVED ADMIT ORDERS FROM MD LEOS , COVERING FOR MD TRIVEDI. DX PNA AND UTI.
[2022-01-15] MEDS ORDERED: cefTRIAXone 1 GM IVPB PREMIX 50 ML IV ONE (12:30)
[2022-01-15] MEDS ORDERED: AZITHROMYCIN 500 MG in NS 250 ML IV ONE (12:30)
[2022-01-15] MEDS ORDERED: ATOR20TA64 PO (12:38)
[2022-01-15] MEDS ORDERED: GABA300T25 PO (12:38)
[2022-01-15] MEDS ORDERED: FERR-69 PO (12:38)
[2022-01-15] MEDS ORDERED: PRO40 PO (12:38)
[2022-01-15] MEDS ORDERED: KETOROLAC TROMETHAMINE 30 MG VIAL IVP ONE (13:00)
[2022-01-15] MEDS ORDERED: AZITHROMYCIN 500 MG/VIAL (ZITHROMAX) IV ONE (13:02)
[2022-01-15] MEDS: NACL 0.9% 1,000 ML IV SCH (13:08)
--- NOTE | 2022-01-15 13:40 | NUR ---
ADMISSION NOTE Received patient from ER via gurney. Patient admitted with diagnosis of pneumonia and urinary tract infection. Patient is awake, alert, oriented X 4. Patient oriented to hospital room, call light, toileting, pain management and safety-teach back done. Patient informed that Shana will be their nurse and that their room number is 105B. Patient brought no personal belongings. Bed is locked, alarm on, and at lowest position. Call light within reach.
--- NOTE | 2022-01-15 14:07 | NUR ---
CONSULTATION PAGED/CALLED Reason for Consultation: [] TRACH TO O2 Person Who was Notified: [] ALIS Consulting Physician: [] DR CLARKE P Fur Sorter Specialty: [] PULMO Ordering Physician: [] DR STACY
[2022-01-15 14:20] VITALS: BP_SYST 110; BP_SYST 95
[2022-01-15] MEDS ORDERED: NALOXONE HCL 0.4 MG/ML AMP (NARCAN) IVP PRN (15:00)
[2022-01-15] MEDS ORDERED: MAG-AL HYDROX/SIMETH 30 ML UDC GT PRN (15:00)
[2022-01-15] MEDS ORDERED: MILK OF MAGNESIA 30 ML UDC PO PRN (15:00)
[2022-01-15] MEDS ORDERED: HYDROcodone/ACETAMIN 5-325 MG TAB (NORCO/ VICODIN) PO SCH (15:00)
[2022-01-15 15:14] VITALS: BP_SYST 95
[2022-01-15] MEDS ORDERED: BISACODYL 10 MG/SUPPOSITORY RC PRN (15:15)
[2022-01-15 15:18] VITALS: BP_SYST 110
[2022-01-15 16:00] VITALS: BP_SYST 108
[2022-01-15] MEDS ORDERED: AZITHROMYCIN 500 MG in NS 250 ML IV SCH (16:00)
[2022-01-15] MEDS ORDERED: cefTRIAXone 1 GM IVPB PREMIX 50 ML IV SCH (16:00)
[2022-01-15] MEDS: HYDROcodone/ACETAMIN 5-325 MG TAB (NORCO/ VICODIN) PO PRN ×3 (16:15→20:49)
--- NOTE | 2022-01-15 17:00 | NUR ---
Notes Patient is eating dinner, puree and thin liquids, by herself. Head of the bed is elevated. No respiratory distress noted. No coughing noted. Patient is tolerating feeding well. Call light within her reach. Bed locked, alarm on, and at lowest position.
[2022-01-15] MEDS ORDERED: WARFARIN SODIUM 2.5 MG TABLET PO SCH (18:00)
[2022-01-15 20:00] VITALS: BP_SYST 101
[2022-01-15] MEDS: CARVEDILOL 25 MG TABLET (COREG) PO SCH (20:48)
[2022-01-15] MEDS: GABAPENTIN 300 MG CAPSULE PO SCH (20:48)
[2022-01-15] MEDS ORDERED: FAMOTIDINE 20 MG TABLET PO SCH (21:00)
[2022-01-15] MEDS: clonazePAM 0.5 MG TABLET PO SCH (22:00)
[2022-01-15] MEDS: ALBUTEROL SULFATE 0.083% 2.5 MG/3 ML VIAL.NEB INH SCH (23:23)
[2022-01-16 00:30] VITALS: BP_SYST 96
[2022-01-16] MEDS: HYDROcodone/ACETAMIN 5-325 MG TAB (NORCO/ VICODIN) PO PRN ×2 (02:12→18:15)
[2022-01-16] MEDS: NACL 0.9% 1,000 ML IV SCH ×2 (02:19→02:58)
--- NOTE | 2022-01-16 05:30 | NUR ---
Swallow Eval Called Left a message to Andree, regarding swallow eval, ordered by Dr. Mccormick.
--- NOTE | 2022-01-16 05:52 | NUR ---
Consultation Paged Reason for Consultation: Wt loss, Anemia Was consult called: Y Person who was notified: Chrissie Consulting Physician: Dr. Renee Ordering Physician: Dr. Mccormick
[2022-01-16] MEDS: clonazePAM 0.5 MG TABLET PO SCH ×3 (06:00→21:37)
[2022-01-16] MEDS ORDERED: LEVOTHYROXINE SODIUM 0.15 MG TABLET PO SCH (07:00)
[2022-01-16] MEDS: ALBUTEROL SULFATE 0.083% 2.5 MG/3 ML VIAL.NEB INH SCH ×3 (07:37→20:39)
[2022-01-16 08:00] VITALS: BP_SYST 104
--- NOTE | 2022-01-16 08:00 | NUR ---
INITIAL NOTES Patient in bed, waiting for breakfast. Vital signs obtained. No pain or distress noted. Safety precautions in place. Call light within reach.
[2022-01-16 08:02] LABS: BASOPHILS # (AUTO) 0.1 K/uL (0.0-0.2); BASOPHILS % (AUTO) 0.4 % (0.0-2.0); EOSINOPHILS # (AUTO) 0.2 K/uL (0.0-0.4); EOSINOPHILS % (AUTO) 1.6 % (0.0-4.0); HEMATOCRIT 25.8 % (36-48); HEMOGLOBIN 8.2 g/dL (12.0-16.0); LYMPHOCYTES # (AUTO) 0.6 K/uL (1.0-5.5); LYMPHOCYTES % (AUTO) 5.6 % (20.5-51.5); MEAN CORPUSCULAR HEMOGLOBIN 33 pg (27-31); MEAN CORPUSCULAR HGB CONC 32 % (32-36); MEAN CORPUSCULAR VOLUME 102 fL (79.0-98.0); MONOCYTES # (AUTO) 0.6 K/uL (0.0-1.0); MONOCYTES % (AUTO) 5.4 % (1.7-9.3); NEUTROPHILS # (AUTO) 9.8 K/uL (1.8-7.7); PLATELET COUNT (AUTO) 274 K/uL (130-430); RED BLOOD CELL COUNT(AUTO) 2.53 MIL/uL (4.2-6.2); RED CELL DISTRIBUTION WIDTH 15.7 % (9.0-15.0); WHITE BLOOD COUNT (AUTO) 11.3 K/uL (4.8-10.8)
[2022-01-16] MEDS ORDERED: DIATR MEGLU/DIATRIZ SOD 30 ML SOLUTION PO ONE (08:22)
[2022-01-16] MEDS: DOCUSATE SODIUM 100 MG CAPSULE PO SCH (08:38)
[2022-01-16] MEDS: ASCORBIC ACID 500 MG TABLET PO SCH (08:38)
[2022-01-16] MEDS: PANTOPRAZOLE SODIUM 40 MG TAB PO SCH (08:39)
[2022-01-16] MEDS: FERROUS SULFATE 325 MG TABLET.DR PO SCH (08:39)
[2022-01-16] MEDS: MULTIVITAMINS TAB 1 TABLET PO SCH (08:39)
[2022-01-16] MEDS: ATORVASTATIN 20 MG TABLET PO SCH (08:39)
[2022-01-16] MEDS: GABAPENTIN 300 MG CAPSULE PO SCH ×2 (08:52→21:37)
[2022-01-16] MEDS: CARVEDILOL 25 MG TABLET (COREG) PO SCH ×2 (08:57→21:00)
[2022-01-16] MEDS ORDERED: VIT C PO SCH (09:00)
[2022-01-16] MEDS ORDERED: ASCORBATE CA PO SCH (09:00)
[2022-01-16] MEDS ORDERED: ASCORB SOD PO SCH (09:00)
[2022-01-16] MEDS ORDERED: [UNRECOGNIZED DRUG - OTHER] PO SCH (09:00)
[2022-01-16] MEDS ORDERED: CITALOPRAM HYDROBROMIDE 20 MG TABLET GT SCH (09:00)
[2022-01-16 09:08] LABS: INR 1.1 (0.8-1.2); PROTHROMBIN TIME 11.2 SECS (9.5-12.5)
[2022-01-16 09:11] LABS: FREE T4 (FREE THYROXINE) 1.8 ng/dl (0.8-1.5); THYROID STIMULATING HORMONE 0.22 uIu/mL (0.36-3.74)
--- NOTE | 2022-01-16 09:20 | NUR ---
Notes Patient seen by Dr. Garcia. Ordered to use eye drops from alf.
[2022-01-16] MEDS ORDERED: PEG 400/HYPROMELLOSE/GLYCERIN 15 ML DROPS RIGHT EYE ONE (10:00)
[2022-01-16 10:37] LABS: ANION GAP 10 (5-15); CALCIUM 7.9 mg/dL (8.4-11.0); CHLORIDE 103 mmol/L (98-107); CREATININE 1.99 mg/dL (0.55-1.30); GLUCOSE 90 mg/dL (70-99); POTASSIUM 4.2 mmol/L (3.5-5.1); SODIUM SERUM 139 mmol/L (136-145); UREA NITROGEN, BLOOD 28 mg/dL (8-21)
[2022-01-16 10:41] LABS: ALANINE AMINOTRANSFERASE 11 U/L (12-78); ALBUMIN 1.4 g/dL (3.4-4.8); ASPARTATE AMINOTRANSFERASE 21 U/L (10-37); TOTAL BILIRUBIN 0.3 mg/dL (0.0-1.0)
[2022-01-16] MEDS: ACETAMINOPHEN 325 MG TABLET PO PRN ×2 (11:24→22:45)
--- NOTE | 2022-01-16 12:00 | NUR ---
Notes Patient was repositioned, clean, and changed. Patient in no distress. Safety precautions in place. Call light within reach.
[2022-01-16] MEDS: PEG 400/HYPROMELLOSE/GLYCERIN 15 ML DROPS RIGHT EYE SCH ×3 (12:49→21:49)
[2022-01-16 12:53] VITALS: BP_SYST 97
[2022-01-16] MEDS: cefTRIAXone 1 GM IVPB PREMIX 50 ML IV SCH (15:22)
--- NOTE | 2022-01-16 16:00 | NUR ---
Notes Patient is in bed, resting. No pain or distress noted. Safety precautions in place and call light within reach.
[2022-01-16 16:16] VITALS: BP_SYST 100
[2022-01-16] MEDS: AZITHROMYCIN 500 MG in NS 250 ML IV SCH (16:32)
--- NOTE | 2022-01-16 18:20 | NUR ---
Closing Notes Patient is in bed with head of the bed elevated. Patient is eating dinner. Patient reported pain of L. foot, gave pain medication. Will reassess pain, before end of shift. Safety precautions in place and call light within reach.
--- NOTE | 2022-01-16 20:05 | NUR ---
Opening notes Pt awake and refused vitals taken at this time and states "leave me alone" and demanded to have lights off. Informed pt that nurse will return in an hour to check vitals. Call light within reach. Safety maintained. To monitor.
[2022-01-16 21:20] VITALS: BP_SYST 104
--- NOTE | 2022-01-16 22:00 | NUR ---
Skin care Pt demanded to have dressing on right buttocks changed. Changed dressing, cleansed with NS and applied Z guard and covered with optifoam dressing. Encouraged pt to reposition in bed, pt needs reinforcement. Repositioned with pillow support, sandy heels maintained floated. To monitor.
[2022-01-17] VITALS (11 sets, daily range): BP systolic 86–105
[2022-01-17] MEDS: ALBUTEROL SULFATE 0.083% 2.5 MG/3 ML VIAL.NEB INH SCH ×4 (04:02→19:37)
--- NOTE | 2022-01-17 06:40 | NUR ---
Closing notes Pt asleep, easily awakens. Trache collar on O2 sat 93-94%. No s/s distress noted. Safety maintained. Bed low, locked, siderails up x3, alarm on. Pt repositioned with pillow support. To endorse to AM nurse.
[2022-01-17] MEDS: LEVOTHYROXINE SODIUM 0.125 MG TABLET PO SCH (06:44)
[2022-01-17] MEDS: clonazePAM 0.5 MG TABLET PO SCH ×3 (06:44→20:52)
[2022-01-17] MEDS: MULTIVITAMINS TAB 1 TABLET PO SCH (09:06)
[2022-01-17] MEDS: PANTOPRAZOLE SODIUM 40 MG TAB PO SCH (09:06)
[2022-01-17] MEDS: FERROUS SULFATE 325 MG TABLET.DR PO SCH (09:06)
[2022-01-17] MEDS: GABAPENTIN 300 MG CAPSULE PO SCH ×2 (09:06→20:52)
[2022-01-17] MEDS: DOCUSATE SODIUM 100 MG CAPSULE PO SCH (09:06)
[2022-01-17] MEDS: ATORVASTATIN 20 MG TABLET PO SCH (09:06)
[2022-01-17] MEDS: CARVEDILOL 25 MG TABLET (COREG) PO SCH ×2 (09:07→20:52)
[2022-01-17] MEDS: ASCORBIC ACID 500 MG TABLET PO SCH (09:07)
[2022-01-17] MEDS: PEG 400/HYPROMELLOSE/GLYCERIN 15 ML DROPS RIGHT EYE SCH ×4 (09:09→20:53)
[2022-01-17] MEDS: ALBUTEROL SULFATE 0.083% 2.5 MG/3 ML VIAL.NEB INH PRN (09:40)
--- NOTE | 2022-01-17 10:30 | NUR ---
PATIENT COMPLAINING OF NOT BEING ABLE TO BREATH, PATIENT O2 SATURATION 91% ON 2L, PATIENT DECLINED SUCTIONING, DECLINED HOB ELEVATION, EDUCATION ON SUCTIONING AND O2 THERAPY GIVEN TO PATIENT. PATIENT STILL DECLINE.
--- NOTE | 2022-01-17 11:12 | NUR ---
RAPID RESPONSE CALLED. SPO2 77% ON TRACH COLLAR 4LPM. INCREASED TO 10LPM. BAGGED PATIENT VIA TRACH. SPO2 BACK TO 95%. SUCTIONED VIA TRACH. PLACED BACK ON TRACH COLLAR 7LPM. SPO2 98%. ABG FOLLOWS.
--- NOTE | 2022-01-17 11:30 | NUR ---
RAPID RESPONSE CALLED PATIENT WAS DE-SATING AND STATING SHE COULDN'T BREATH, ABLE TO STABILIZE PATIENT.
[2022-01-17] MEDS ORDERED: D5/0.45 NS 1,000 ML IV SCH (12:00)
--- NOTE | 2022-01-17 13:25 | NUR ---
PATIENT COMPLAINING OF DIFFICULTY BREATHING, PATIENT DECLINED SUCTIONING, DECLINED HOB ELEVATION, EDUCATION ON IMPORTANCE OF SUCTIONING GIVEN TO PATIENT, EDUCATION ON IMPORTANCE OF ELEVATING THE HOB, PATIENT STILL DECLINED. PATIENT O2 SATURATION IS 91 PERCENT ON 2L
--- NOTE | 2022-01-17 15:15 | NUR ---
TRANSFERRED PATIENT TO ICU4 FROM ROOM 105B. PATIENT ON TRACH COLLAR 4LPM. NO RESPIRATORY DISTRESS NOTED. SPO2 99%, HR 88.
--- NOTE | 2022-01-17 15:20 | NUR ---
TO ICU. RECEIVED PT ALERT, ON O2 NOW AT 2 L VIA TRACH COLLAR, SATURATION 100%, NO COUGHING, NO COMPLAINTS OF PAIN, REPOSITIONED TO HER SIDE, PILLOW TO SUPPORT HER BACK AND LEGS, GENERALIZED EDEMA, FOAM DRESSING INTACT TO RIGHT BUTTOCK.
[2022-01-17] MEDS: cefTRIAXone 1 GM IVPB PREMIX 50 ML IV SCH (15:42)
--- NOTE | 2022-01-17 15:50 | NUR ---
Dietitian Recommendations * Change diet to Renal pureed. * Renal Pureed comes with Nepro TID (provides 1260 kcals/day and 57 g protein/day) * Encourage PO intake. * Consider appetite stimulant Please refer to Nutrition Assessment for details. Addendum: 01/17/22 at [address] Amended: Links added.
--- NOTE | 2022-01-17 15:51 | NUR ---
ABG RESULTS SHOW PATIENT WITH ELEVATED PCO2 AND LOW PH, PATIENT PLACED ON 2L
--- NOTE | 2022-01-17 16:10 | NUR ---
SWALLOW EVAL PT BEING EXAMINED BY THERAPIST, PT ABLE TO FOLLOW SIMPLE COMMANDS, PT REQUESTED FOR CHOCOLATE FLAVORED PUDDING, SHE WAS ABLE TO TOLERATE IT.
--- NOTE | 2022-01-17 16:11 | NUR ---
O2 R.T. AT BEDSIDE, O2 TITRATED TO 4L.
[2022-01-17] MEDS: AZITHROMYCIN 500 MG in NS 250 ML IV SCH (16:35)
--- NOTE | 2022-01-17 16:36 | NUR ---
ST EVALUATION COMPLETED. ST TX NOT INDICATED AT THIS TIME. RECOMMEND PO DIET OF PUREE/THIN LIQUID WITH 1:1 FEEDER AND FULL ASPIRATION PRECAUTIONS. PO INTAKE ONLY WHEN PMV IS IN PLACE.
--- NOTE | 2022-01-17 17:11 | NUR ---
LOW BP INFORMED DR CARVALHO THRU THE PHONE ON PT'S BLOOD PRESSURE, 88/45, 86/38, NEW ORDERS RECEIVED AND CARRIED OUT.
[2022-01-17] MEDS: D5NS 1,000 ML IV SCH (17:42)
[2022-01-17] MEDS: ALBUMIN HUMAN 25% 100 ML IV SCH ×2 (17:54→20:53)
[2022-01-17 18:54] LABS: ANION GAP 8 (5-15); CALCIUM 8.4 mg/dL (8.4-11.0); CHLORIDE 107 mmol/L (98-107); CREATININE 1.71 mg/dL (0.55-1.30); GLUCOSE 99 mg/dL (70-99); POTASSIUM 4.1 mmol/L (3.5-5.1); SODIUM SERUM 138 mmol/L (136-145); UREA NITROGEN, BLOOD 25 mg/dL (8-21)
[2022-01-17 19:03] LABS: BASOPHILS # (AUTO) 0.1 K/uL (0.0-0.2); BASOPHILS % (AUTO) 0.5 % (0.0-2.0); EOSINOPHILS # (AUTO) 0.2 K/uL (0.0-0.4); EOSINOPHILS % (AUTO) 1.4 % (0.0-4.0); HEMATOCRIT 25.6 % (36-48); HEMOGLOBIN 7.6 g/dL (12.0-16.0); LYMPHOCYTES # (AUTO) 0.8 K/uL (1.0-5.5); LYMPHOCYTES % (AUTO) 5.4 % (20.5-51.5); MEAN CORPUSCULAR HEMOGLOBIN 32 pg (27-31); MEAN CORPUSCULAR HGB CONC 30 % (32-36); MEAN CORPUSCULAR VOLUME 106 fL (79.0-98.0); MONOCYTES # (AUTO) 0.6 K/uL (0.0-1.0); MONOCYTES % (AUTO) 3.9 % (1.7-9.3); NEUTROPHILS # (AUTO) 13.1 K/uL (1.8-7.7); NEUTROPHILS % (AUTO) 88.8 % (40.0-70.0); PLATELET COUNT (AUTO) 234 K/uL (130-430); RED BLOOD CELL COUNT(AUTO) 2.41 MIL/uL (4.2-6.2); RED CELL DISTRIBUTION WIDTH 16.4 % (9.0-15.0); WHITE BLOOD COUNT (AUTO) 14.8 K/uL (4.8-10.8)
--- NOTE | 2022-01-17 19:30 | NUR ---
PM assessment patient has a trache 4L. Patient is resting in bed. safety precautions in place. Patient is not in any respiratory distress.
--- NOTE | 2022-01-17 19:45 | NUR ---
Page out to Dr. Sotomayor for orders.
--- NOTE | 2022-01-17 20:37 | NUR ---
Second page out to Dr. Sotomayor for orders.
[2022-01-17] MEDS ORDERED: NOREPINEPHRINE BITARTRATE 4 MG in NS 246 ML IV PRN (20:45)
--- NOTE | 2022-01-17 20:45 | NUR ---
New orders Dr. Jaime called back and ordered levophed 4mg. keep systolic above 90.
[2022-01-17] MEDS: MEGESTROL ACETATE 400 MG/10 ML UDC PO SCH (20:52)
[2022-01-17] MEDS ORDERED: NOREPINEPHRINE 4 MG/4 ML VIAL IV ONE (22:34)
[2022-01-18] VITALS (29 sets, daily range): BP systolic 100–128
[2022-01-18] MEDS: ALBUTEROL SULFATE 0.083% 2.5 MG/3 ML VIAL.NEB INH SCH ×5 (02:41→23:34)
[2022-01-18] MEDS: D5NS 1,000 ML IV SCH ×2 (04:03→14:03)
[2022-01-18 06:34] LABS: ALANINE AMINOTRANSFERASE 10 U/L (12-78); ALBUMIN 2.4 g/dL (3.4-4.8); ANION GAP 6 (5-15); ASPARTATE AMINOTRANSFERASE 12 U/L (10-37); CALCIUM 7.9 mg/dL (8.4-11.0); CHLORIDE 108 mmol/L (98-107); CREATININE 1.65 mg/dL (0.55-1.30); GLUCOSE 180 mg/dL (70-99); PHOSPHORUS 3.2 mg/dL (2.7-4.5); POTASSIUM 3.9 mmol/L (3.5-5.1); SODIUM SERUM 141 mmol/L (136-145); TOTAL BILIRUBIN 0.1 mg/dL (0.0-1.0); UREA NITROGEN, BLOOD 20 mg/dL (8-21)
[2022-01-18] MEDS: clonazePAM 0.5 MG TABLET PO SCH ×3 (06:44→22:00)
[2022-01-18] MEDS: LEVOTHYROXINE SODIUM 0.125 MG TABLET PO SCH (06:45)
[2022-01-18 07:11] LABS: BASOPHILS # (AUTO) 0.1 K/uL (0.0-0.2); BASOPHILS % (AUTO) 0.5 % (0.0-2.0); EOSINOPHILS # (AUTO) 0.7 K/uL (0.0-0.4); HEMATOCRIT 22.8 % (36-48); HEMOGLOBIN 7.7 g/dL (12.0-16.0); LYMPHOCYTES % (AUTO) 5.8 % (20.5-51.5); MEAN CORPUSCULAR HEMOGLOBIN 35 pg (27-31); MEAN CORPUSCULAR HGB CONC 34 % (32-36); MEAN CORPUSCULAR VOLUME 105 fL (79.0-98.0); MONOCYTES # (AUTO) 0.7 K/uL (0.0-1.0); MONOCYTES % (AUTO) 4.1 % (1.7-9.3); NEUTROPHILS # (AUTO) 15.5 K/uL (1.8-7.7); NEUTROPHILS % (AUTO) 85.6 % (40.0-70.0); PLATELET COUNT (AUTO) 394 K/uL (130-430); RED BLOOD CELL COUNT(AUTO) 2.17 MIL/uL (4.2-6.2); RED CELL DISTRIBUTION WIDTH 16.6 % (9.0-15.0); WHITE BLOOD COUNT (AUTO) 18.1 K/uL (4.8-10.8)
--- NOTE | 2022-01-18 07:30 | NUR ---
RECEIVED REPORT FROM [facility]. PT RESTING COMFORTABLY IN BED, IS AWAKE AND ALERT, AND IS SITTING IN HIGH ADEN'S POSITION. LUNG SOUNDS ARE DIMINISHED. ABDOMEN SOFT WITH ACTIVE BOWEL SOUNDS. PT HAD BM THIS MORNING. VITAL SIGNS HAVE BEEN STABLE WITH SYSTOLIC BP ABOVE 100. LEVOPHED WAS TURNED OFF AT 0500. WILL CONTINUE TO MONITOR.
[2022-01-18] MEDS: DOCUSATE SODIUM 100 MG CAPSULE PO SCH (09:00)
[2022-01-18] MEDS: MULTIVITAMINS TAB 1 TABLET PO SCH (09:00)
[2022-01-18] MEDS: PANTOPRAZOLE SODIUM 40 MG TAB PO SCH (09:00)
[2022-01-18] MEDS: FERROUS SULFATE 325 MG TABLET.DR PO SCH (09:00)
[2022-01-18] MEDS: MEGESTROL ACETATE 400 MG/10 ML UDC PO SCH ×2 (09:00→20:47)
[2022-01-18] MEDS: CARVEDILOL 25 MG TABLET (COREG) PO SCH ×2 (09:00→20:46)
[2022-01-18] MEDS: GABAPENTIN 300 MG CAPSULE PO SCH ×2 (09:00→21:00)
[2022-01-18] MEDS: ASCORBIC ACID 500 MG TABLET PO SCH (09:00)
[2022-01-18] MEDS: ATORVASTATIN 20 MG TABLET PO SCH (09:00)
--- NOTE | 2022-01-18 10:14 | NUR ---
VAULT SERVICE MECHANIC PAGED AND SPOKE TO DR CLARKE, REPORTED TO MD ON HER ABG AND CHEST RESULT, PT COMPLAINS OF FEELING SHORT OF BREATH. PT'S O2 SAT 97%, RESP RATE 18 TO 22. PT WAS SUCTIONED THRU HER TRACH USING SUCTION CATHETER, MODERATE AMOUNT OF CLEAR SECRETIONS, ORAL CARE WAS RENDERED. PT TOLERATED. R.T. CAME IN TO ASSESS HER.
[2022-01-18] MEDS: PEG 400/HYPROMELLOSE/GLYCERIN 15 ML DROPS RIGHT EYE SCH ×4 (10:22→20:47)
--- NOTE | 2022-01-18 10:35 | NUR ---
CONSENT CALLED UP PT'S DAUGHTER WHO LIVES IN [place], PT TO HAVE A THORACENTESIS, CONSENT OBTAINED AND VERIFIED BY ANOTHER RN. PT MADE AWARE OF THE PROCEDURE.
--- NOTE | 2022-01-18 11:57 | NUR ---
TIME OUT DONE WITH RADIOLOGY STAFF AND DR. MCKEON. PT POSITIONED TO HER SIDE. MD READS THE SCAN AND CANCELLED THE PROCEDURE.
--- NOTE | 2022-01-18 13:19 | NUR ---
MILL TURNER AT BEDSIDE, PT REFUSED TO GO FOR HER TEST, WENT TO TALK TO HER, EXPLAINED WHAT THE TEST IS FOR, PT SHOOK HER HEAD.
[2022-01-18] MEDS: cefTRIAXone 1 GM IVPB PREMIX 50 ML IV SCH (15:30)
[2022-01-18] MEDS: ALBUTEROL SULFATE 0.083% 2.5 MG/3 ML VIAL.NEB INH PRN (15:45)
[2022-01-18] MEDS: AZITHROMYCIN 500 MG in NS 250 ML IV SCH (16:01)
--- NOTE | 2022-01-18 16:28 | NUR ---
RT NOTES Per Dr's order, trach was changed to portex 7 cuffed, no adverse reactions noted. Another RT at bedside/on standby.Placed pt on vent @1630 AC 14 400 +5 50%. Bilateral b/s/chest rise noted. Sputum collected and endorsed to lab. Vent to red outlet, resus. bag and spare trach at bedside. Alarms are set and audible at nurses's station.
[2022-01-18] MEDS ORDERED: *PPN PER PHARMACY XX PRN ×2 (19:00→19:15)
--- NOTE | 2022-01-18 19:25 | NUR ---
PM SHIFT ASSESSMENT Patient is awake and alert. O2 via trach to vent, tolerating current vent settings. SR on monitor. Skin warm and dry. IVF infusing, no signs of infiltration noted. Safety precautions in place, call light within reach. Will continue to monitor.
--- NOTE | 2022-01-18 19:34 | NUR ---
CONSULTATION PAGED/CALLED Reason for Consultation: Sepsis Person Who was Notified: Brigette Consulting Physician: Kaykay Inspector And Hand Packager Specialty: Infectious Disease Ordering Physician: Светлана
--- NOTE | 2022-01-18 19:55 | NUR ---
DR. CLARKE HERE TO SEE PATIENT.
[2022-01-19] VITALS (34 sets, daily range): BP systolic 93–150
[2022-01-19] MEDS: D5NS 1,000 ML IV SCH ×3 (01:03→19:52)
[2022-01-19] MEDS: clonazePAM 0.5 MG TABLET PO SCH ×3 (06:00→21:45)
[2022-01-19] MEDS: LEVOTHYROXINE SODIUM 0.125 MG TABLET PO SCH (06:03)
[2022-01-19 06:42] LABS: BASOPHILS # (AUTO) 0.1 K/uL (0.0-0.2); BASOPHILS % (AUTO) 0.5 % (0.0-2.0); EOSINOPHILS # (AUTO) 0.2 K/uL (0.0-0.4); EOSINOPHILS % (AUTO) 1.5 % (0.0-4.0); LYMPHOCYTES # (AUTO) 0.7 K/uL (1.0-5.5); LYMPHOCYTES % (AUTO) 5.4 % (20.5-51.5); MEAN CORPUSCULAR HEMOGLOBIN 32 pg (27-31); MEAN CORPUSCULAR HGB CONC 31 % (32-36); MEAN CORPUSCULAR VOLUME 104 fL (79.0-98.0); MONOCYTES # (AUTO) 0.7 K/uL (0.0-1.0); MONOCYTES % (AUTO) 5.1 % (1.7-9.3); NEUTROPHILS # (AUTO) 11.7 K/uL (1.8-7.7); NEUTROPHILS % (AUTO) 87.5 % (40.0-70.0); PLATELET COUNT (AUTO) 210 K/uL (130-430); RED BLOOD CELL COUNT(AUTO) 2.03 MIL/uL (4.2-6.2); RED CELL DISTRIBUTION WIDTH 16.4 % (9.0-15.0); WHITE BLOOD COUNT (AUTO) 13.4 K/uL (4.8-10.8)
[2022-01-19] MEDS: ALBUTEROL SULFATE 0.083% 2.5 MG/3 ML VIAL.NEB INH SCH ×3 (07:18→19:36)
--- NOTE | 2022-01-19 07:19 | NUR ---
ENDORSEMENT Patient care endorsed to dayshift RN using nursing SBAR.
[2022-01-19 08:22] LABS: HEMOGLOBIN 6.5 g/dL (12.0-16.0)
[2022-01-19 08:52] LABS: ALANINE AMINOTRANSFERASE 7 U/L (12-78); ALBUMIN 1.8 g/dL (3.4-4.8); ANION GAP 6 (5-15); ASPARTATE AMINOTRANSFERASE 9 U/L (10-37); CALCIUM 7.7 mg/dL (8.4-11.0); CHLORIDE 114 mmol/L (98-107); CREATININE 1.48 mg/dL (0.55-1.30); GLUCOSE 124 mg/dL (70-99); PHOSPHORUS 1.6 mg/dL (2.7-4.5); POTASSIUM 3.2 mmol/L (3.5-5.1); SODIUM SERUM 144 mmol/L (136-145); TOTAL BILIRUBIN 0.1 mg/dL (0.0-1.0); TRIGLYCERIDES 56 mg/dL (30-150); UREA NITROGEN, BLOOD 15 mg/dL (8-21)
[2022-01-19] MEDS: GABAPENTIN 300 MG CAPSULE PO SCH ×2 (09:00→21:00)
[2022-01-19] MEDS: DOCUSATE SODIUM 100 MG CAPSULE PO SCH (09:00)
[2022-01-19] MEDS: ATORVASTATIN 20 MG TABLET PO SCH (09:00)
[2022-01-19] MEDS: MEGESTROL ACETATE 400 MG/10 ML UDC PO SCH ×2 (09:00→21:00)
[2022-01-19] MEDS: PANTOPRAZOLE SODIUM 40 MG TAB PO SCH (09:00)
[2022-01-19] MEDS: PEG 400/HYPROMELLOSE/GLYCERIN 15 ML DROPS RIGHT EYE SCH ×4 (09:00→21:01)
[2022-01-19] MEDS: FERROUS SULFATE 325 MG TABLET.DR PO SCH (09:00)
[2022-01-19] MEDS: MULTIVITAMINS TAB 1 TABLET PO SCH (09:00)
[2022-01-19] MEDS: ASCORBIC ACID 500 MG TABLET PO SCH (09:00)
[2022-01-19] MEDS: CARVEDILOL 25 MG TABLET (COREG) PO SCH ×2 (09:00→21:00)
--- NOTE | 2022-01-19 10:51 | NUR ---
Nutrition F/U Admitting Diagnosis PNA, UTI Medical History Comment: Chronic respiratory failure, s/p trach (not vent dependent), CKD, anemia, COPD, CHF, hypothyroidism 01/17 ST Swallow Evaluation - Recommended PO diet of puree/thin liquid with 1:1 feeder and full aspiration precautions. PO intake only when PMV is in place SARS-CoV-2 Ag (Rapid) Negative 01/15 Subjective Information Notification of TPN Initiation 01/18/22 1849 Pt seen during ICU rounds, per RN report pt is on vent; plan for video swallow evaluation; unknown if pt refused NGT or Dobhoff, PPN to be initiated; pt has LUE midline and peripheral line; pt w/ stage II sacral PI; urine cultures negative, sputum cultures pending; pt w/ GIB and gastric ulcers; pt is not sedated. Per EMR review, pt transferred to ICU w/ SOB, now on vent to trach; swallow evaluation completed 01/17, pt still chocking w/ pureed foods per physician notes, plan for VFSS when pt is off vent. Matias score 12, R. buttock wound; abd. is soft and non-distended w/ active bowel sounds; last BM x1 01/18; BLE non-pitting edema. TPN ordered 01/18. Spoke w/ pharmD regarding TPN recommendations. Current Diet Order/Nutrition Support NPO pending swallow eval x 0 days, PPN Patient/Significant Other Unable To Verbalize Education Provided Not Indicated Pertinent Medications D5% 1/2NS at 50 ml/hr x20 hrs (provides 170 kcals/day), synthroid, azithromycin, Megace, Vit C, FeSO4, Protonix, MVI, Colace, Lipitor, Pertinent Labs WBC 13.4 H, H/H 6.5 L/21 L, K 3.2 L, Cr 1.48 H, BG 124 H, P 1.6 L, Mg 1.3 L, TG 56 WNL Height (Feet) 5 feet Height (Inches) 2.00 inches Weight (Pounds) 131 pounds Weight (Calculated Kilograms) 59.779227 kilograms Patient Weight 59.421 kg Body Mass Index 23.96 kg/m2 Usual Weight 147 lbs %UBW 89 %IBW 119 [place]/Adjusted Body Weight 110#/50 kg Weight Status Appropriate Gastrointestinal Symptoms Nausea Vomiting Last BM Jan 17, 2022 Usual Diet At Home Pureed Skin Integrity Comment: Matias score 13, R. buttocks wound Current % PO Poor (25-49%) * NEW Estimated Energy Expenditure (kcals/day) 1135 kcals/day (PSU d/t critical illness, intubation; Ve: 8.9, Tmax: 36.6'C.) Estimated Protein Required (g/day) 47 - 59 g/day (0.8 1 g/kg CBW d/t CKD vs. wound healing and COPD) Estimated Fluid Required (l/day) Per fuel distribution system operator Problem/Etiology/Signs/Symptoms Significant weight loss r/t unknown etiology and poor oral intake AEB 11% weight loss in 30 days. (*ongoing) Expected Outcomes/Goals Monitor nutrition support w/ goal of pt meeting greater than 75% of estimated needs, labs trending WNL, normal GI function, skin integrity, wt maintenance. Dietitian Recommendations * PPN: D20, AA8.5 at 55 ml/hr goal rate, 20%IL at 10 ml/hr daily (Provides 1153 kcals/day, 56 g protein/day, 1560 total volume. Meeting 102% of estimated kcal needs and 95% of upper end of estimated protein needs) * Consider EN v. TPN if pt/family agreeable * Consider discontinuing D5,1/2NS when PPN reaches goal rate. Follow Up High Risk: F/U in 2-3days
--- NOTE | 2022-01-19 10:53 | NUR ---
Dietitian Recommendations * PPN: D20, AA8.5 at 55 ml/hr goal rate, 20%IL at 10 ml/hr daily (Provides 1153 kcals/day, 56 g protein/day, 1560 total volume. Meeting 102% of estimated kcal needs and 95% of upper end of estimated protein needs) * Consider EN v. TPN if pt/family agreeable * Consider discontinuing D5,1/2NS when PPN reaches goal rate. Please refer to Nutrition F/U for details.
[2022-01-19] MEDS ORDERED: MENTHOL/ZINC OXIDE 113 GM OINT. TP PRN (15:45)
--- NOTE | 2022-01-19 15:50 | NUR ---
WOUND EVALUATION: Late note for 1550 on 01/19/22. Wound Consult received from Dr. Sotomayor. Thank you, Dr. Sotomayor, for the consult. Patient received in a [place] Bed, awake, alert, confused. Patient is unable to turn in bed independently. Matias Score is a . Past Medical History: Chronic Respiratory Failure, status post Tracheostomy, Chronic Kidney Disease, Anemia, COPD, Chronic Anemia, chronic kidney disease, history of heart failure, Hypothyroidism, Chronic Pain. Recent Labs: WBC 13.4, RBC 2.03, hemoglobin 6.5, hematocrit 21.0, potassium 3.4, chloride 114, BUN 15, creatinine 1.48, glucose 124, calcium 7.7, phosphorus 1.6, magnesium 1.3, AST 9, ALT 7, serum total protein 5.1, albumin 1.8. Microbiology: Blood culture results x2 negative. Urine culture results negative. MRSA screen results negative. Tracheal aspirate culture results in progress. Intrinsic factors that delay wound healing: Chronic Respiratory Failure, Chronic Kidney Disease, Anemia/chronic Anemia, COPD. Extrinsic factors that delay wound healing: Decreased mobility. Wound Assessment: 1. Right Buttock: IAD with MASD. Non-intact skin site has 100% pink tissue. No odor, no drainage. Measures 1.0 cm x 1.0 cm. Recommend: Cleanse site with normal saline. Apply Calmoseptine cream to site. Apply Venelex ointment to any portion of non-intact site not covered by Calmoseptine cream. Cover site with foam dressing. Perform site care daily, and as needed for dressing soiling or dislodgement. 2. Left Heel: Blanchable redness, present on admission. 3. Right Heel: Blanchable redness, present on admission. Recommend: Elevate, offload and float bilateral heels with 1 pillow lengthwise under each extremity at all times. Do not allow heels to touch bed, pillow, or other surfaces. Also recommend: Reposition patient side to side only every 2 hours by maintaining one pillow each underneath left trunk and left pelvis, and maintaining 1 pillow each underneath right trunk and right pelvis (facilitate turning by placing 1 pillow underneath pillows of left trunk and pelvis for 2 hours, then rotate pillow to underneath pillows of right trunk and pelvis for 2 hours). Off-load pressure areas with pillows for pressure re-distribution. Offload, elevate and float bilateral heels with pillows. Perform skin care and monitor skin integrity Q shift. Use Calmoseptine cream on buttocks and other moisture susceptible areas QID and as needed for soiling. Place patient on a low air-loss mattress.
[2022-01-19] MEDS: AZITHROMYCIN 500 MG in NS 250 ML IV SCH (17:00)
--- NOTE | 2022-01-19 19:15 | NUR ---
Opening Notes: Received bedside report from Amando, patient is awake, alert, and seemed frustrated she was not allowed to have ice or water, patient has a trach #7 Ac 14, 400, 40%, 5, D5 NS running at 100 mL/hr, patient is NPO and will begin TPN tonight, patient is incontinent, right coccyx wound peeled and peaked, patient had a new dressing applied today with pictures, suction is working, bed at the lowest level, brakes are locked, appropriate side rails up, call light within reach.
[2022-01-19] MEDS: CEFEPIME 0.5 GM in D5W 50 ML IV SCH (20:40)
[2022-01-19] MEDS ORDERED: POTASSIUM CHLORIDE IV SCH ×7 (21:00)
[2022-01-19] MEDS ORDERED: [UNRECOGNIZED DRUG - OTHER] IV SCH ×7 (21:00)
[2022-01-19] MEDS ORDERED: K PHOS IV SCH ×7 (21:00)
[2022-01-19] MEDS ORDERED: TPN PERIPHERAL IV SCH ×7 (21:00)
[2022-01-20] VITALS (31 sets, daily range): BP systolic 132–183
[2022-01-20] MEDS: ALBUTEROL SULFATE 0.083% 2.5 MG/3 ML VIAL.NEB INH SCH ×4 (00:58→19:41)
--- NOTE | 2022-01-20 02:00 | NUR ---
Dr Garcia assessed patient, no changes to orders.
[2022-01-20] MEDS: D5NS 1,000 ML IV SCH ×2 (04:47→14:42)
[2022-01-20] MEDS: clonazePAM 0.5 MG TABLET PO SCH ×3 (05:40→22:00)
[2022-01-20] MEDS: LEVOTHYROXINE SODIUM 0.125 MG TABLET PO SCH (07:00)
[2022-01-20 07:34] LABS: ALANINE AMINOTRANSFERASE 10 U/L (12-78); ALBUMIN 1.6 g/dL (3.4-4.8); ANION GAP 6 (5-15); ASPARTATE AMINOTRANSFERASE 11 U/L (10-37); CALCIUM 7.5 mg/dL (8.4-11.0); CHLORIDE 115 mmol/L (98-107); CREATININE 1.39 mg/dL (0.55-1.30); GLUCOSE 137 mg/dL (70-99); PHOSPHORUS 1.2 mg/dL (2.7-4.5); POTASSIUM 3.1 mmol/L (3.5-5.1); SODIUM SERUM 145 mmol/L (136-145); UREA NITROGEN, BLOOD 14 mg/dL (8-21)
--- NOTE | 2022-01-20 08:00 | NUR ---
GI DR MIRANDA AT BEDSIDE. DR ASKED PT IF WE COULD PUT AN NG TUBE IN AND SHE SAID NO. HE THEN ASKED HER IF HE CAN TRY TO PUT A PEG TUBE IN HER SHE AGAIN SAID NO. DR MIRANDA THEN EXPLAINED TO HER THAT IF SHE DOES NOT HAVE ONE OR THE OTHER SHE WILL GET WEAKER AND PASS AWAY. HE ASKED IF SHE WAS OKAY WITH THAT AND SHE SAID YES. I WILL SPEAK WITH DAUGHTER KAMALJIT AND DR CARVALHO.
[2022-01-20 08:19] LABS: TOTAL BILIRUBIN < 0.1 mg/dL (0.0-1.0)
[2022-01-20 08:25] LABS: BASOPHILS # (AUTO) 0.1 K/uL (0.0-0.2); BASOPHILS % (AUTO) 0.5 % (0.0-2.0); EOSINOPHILS # (AUTO) 0.2 K/uL (0.0-0.4); EOSINOPHILS % (AUTO) 1.6 % (0.0-4.0); LYMPHOCYTES # (AUTO) 0.7 K/uL (1.0-5.5); LYMPHOCYTES % (AUTO) 6.4 % (20.5-51.5); MEAN CORPUSCULAR HEMOGLOBIN 32 pg (27-31); MEAN CORPUSCULAR HGB CONC 32 % (32-36); MEAN CORPUSCULAR VOLUME 102 fL (79.0-98.0); MONOCYTES # (AUTO) 0.6 K/uL (0.0-1.0); MONOCYTES % (AUTO) 5.4 % (1.7-9.3); NEUTROPHILS # (AUTO) 9.4 K/uL (1.8-7.7); NEUTROPHILS % (AUTO) 86.1 % (40.0-70.0); PLATELET COUNT (AUTO) 202 K/uL (130-430); RED CELL DISTRIBUTION WIDTH 16.7 % (9.0-15.0)
[2022-01-20] MEDS: CARVEDILOL 25 MG TABLET (COREG) PO SCH ×2 (09:00→21:00)
[2022-01-20] MEDS: GABAPENTIN 300 MG CAPSULE PO SCH ×2 (09:00→21:00)
[2022-01-20] MEDS: MULTIVITAMINS TAB 1 TABLET PO SCH (09:00)
[2022-01-20] MEDS: DOCUSATE SODIUM 100 MG CAPSULE PO SCH (09:00)
[2022-01-20] MEDS: ATORVASTATIN 20 MG TABLET PO SCH (09:00)
[2022-01-20] MEDS: MEGESTROL ACETATE 400 MG/10 ML UDC PO SCH ×2 (09:00→21:00)
[2022-01-20] MEDS: ASCORBIC ACID 500 MG TABLET PO SCH (09:00)
[2022-01-20] MEDS: PANTOPRAZOLE SODIUM 40 MG TAB PO SCH (09:00)
[2022-01-20] MEDS: PEG 400/HYPROMELLOSE/GLYCERIN 15 ML DROPS RIGHT EYE SCH ×4 (09:00→21:10)
[2022-01-20] MEDS: FERROUS SULFATE 325 MG TABLET.DR PO SCH (09:00)
[2022-01-20] MEDS: BALSAM PERU/CASTOR OIL 56.7 GM OINT...G. TP SCH (09:00)
[2022-01-20] MEDS: CEFEPIME 0.5 GM in D5W 50 ML IV SCH ×2 (09:00→21:07)
[2022-01-20 09:49] LABS: TOTAL IRON BIND. CAPACITY 74 ug/dL (250-450)
[2022-01-20 10:35] LABS: RED BLOOD CELL COUNT(AUTO) 1.92 MIL/uL (4.2-6.2)
[2022-01-20 10:36] LABS: HEMATOCRIT 19.6 % (36-48); HEMOGLOBIN 6.2 g/dL (12.0-16.0)
--- NOTE | 2022-01-20 11:00 | NUR ---
DR CARVALHO PAGED
--- NOTE | 2022-01-20 11:18 | NUR ---
LEFT VOICEMAIL FOR DAUGHTER KAMALJIT.
--- NOTE | 2022-01-20 11:45 | NUR ---
SPOKE WITH DR CARVALHO. ADVISED ABOUT HER LABS- POTASSIUM IS 3.1, HE SAID TO GIVE 40MEQ POTASSIUM IV. ADVISED ABOUT HER PHOSPHORUS IT IS 1.2 AND HE SAID TO TALK TO PHARMACY ABOUT GIVING HER IV PHOPHORUS. ADVISED HIM ALSO THAT HER HGB IS 6.2 AHD HCT IS 19.6. HE SAID TO GIVE HER TWO UNITS OF BLOOD. I TOLD HIM ABOUT DR MIRANDA AND CHANGING THE PT'S CODE STATUS AND HE TOLD ME TO SPEAK WITH THE DAUGHTER. I HAVE ALREADY LEFT HER A MESSAGE.
--- NOTE | 2022-01-20 11:50 | NUR ---
PT DOES NOT WANT TO RECEIVE BLOOD. I ASKED HER THREE TIMES. I ALSO EDUCATED PT AND GAVE HER THE RISKS OF NOT RECEIVING BLOOD AND THE BENEFITS OF RECEIVING BLOOD. SHE STILL SAID NO.
--- NOTE | 2022-01-20 11:55 | NUR ---
PHARMACY SPOKE WITH ORLY IN PHARMACY AND HE SAID THAT THE PHOSPHORUS AND THE POTASSIUM HAVE BEEN ADJUSTED ACCORDING TO HER LABS. HE ALSO SAID THAT IT WAS STILL OKAY TO GIVE THE POTASSIUM 40MEQ. Addendum: 01/20/22 at 1501 by Micky Stacy RN CLARIFICATION- POTASSIUM AND PHOSPHORUS SUPPLEMENT WILL BE ADJUSTED IN THE NEXT BAG OF PPN.
[2022-01-20] MEDS ORDERED: KCL 40 mEq in 100 mL (PREMIX) 100 ML IV ONE (12:00)
--- NOTE | 2022-01-20 14:00 | NUR ---
CONSENTS THE DAUGHTER KAMALJIT FACETIMED HER MOM AND THE PT SAID SHE WILL GET THE 2 UNIT OF BLOOD AND SHE DOES NOT WANT AN NG TUBE BUT SHE WILL GET THE PEG TUBE. DR RUTH JOHN. Addendum: 01/20/22 at 1450 by Micky Stacy RN PT CONSENTED TO RECEIVING 2 UNITS OF BLOOD WITH DAUGHTER KAMALJIT AND REM[facility] BRANCH WITNESSING THE CONSENT. PT AT THIS TIME WILL AGREE TO A PEG TUBE PLACEMENT PENDING CONSENT FROM
[2022-01-20 14:52] LABS: FOLATE (FOLIC ACID) 2.2 ng/mL (>3.0)
--- NOTE | 2022-01-20 15:45 | NUR ---
SPOKE WITH DR MIRANDA ABOUT PT AGREEING TO CONSENT FOR G-TUBE PLACEMENT. MD WILL VERIFY CONSENT WITH PT/DAUGHTER BEFORE PLACEMENT OF G-TUBE ON MONDAY.
--- NOTE | 2022-01-20 19:05 | NUR ---
Opening notes Received report from endorsing morning shift RN for continuity of care. Patient is lying in bed in no signs of distress with IVF NS@50mL/hr. Patient's vital signs blood pressure 175/79, heart rate 100, respirations 29, SPO2 97%. Patient is trached portex 7 AC 14, tidal volume 400, FIO2 40%, and peep of 5. Patient is incontinent. Bed is locked and in lowest position, fall and safety precautions is in place.
[2022-01-20] MEDS ORDERED: hydrALAZINE HCL 20 MG/ML VIAL IVP PRN (20:30)
--- NOTE | 2022-01-20 20:30 | NUR ---
MD Dr. Sotomayor is in the unit rounding on patient. Gave verbal report. New order given.
[2022-01-20] MEDS ORDERED: POTASSIUM ACETATE IV SCH ×7 (21:00)
[2022-01-20] MEDS ORDERED: TPN PERIPHERAL IV SCH ×7 (21:00)
[2022-01-20] MEDS ORDERED: [UNRECOGNIZED DRUG - OTHER] IV SCH ×7 (21:00)
[2022-01-20] MEDS ORDERED: K PHOS IV SCH ×7 (21:00)
[2022-01-21] VITALS (29 sets, daily range): BP systolic 29–171
--- NOTE | 2022-01-21 00:14 | NUR ---
MD Dr. Garcia is in the unit rounding on patient. Gave verbal report. No new order given.
[2022-01-21] MEDS: ALBUTEROL SULFATE 0.083% 2.5 MG/3 ML VIAL.NEB INH SCH ×5 (01:22→23:31)
[2022-01-21] MEDS: D5NS 1,000 ML IV SCH ×2 (02:27→16:14)
--- NOTE | 2022-01-21 03:20 | NUR ---
Blood Transfusion First unit of blood transfusion is done, started at 2353 01/20/22. No reaction throughout the transfusion. Type and cross is done. Blood consent is done and in the chart.
[2022-01-21] MEDS: ALBUTEROL SULFATE 0.083% 2.5 MG/3 ML VIAL.NEB INH PRN ×2 (04:39→05:42)
[2022-01-21] MEDS: clonazePAM 0.5 MG TABLET PO SCH ×3 (05:45→21:32)
--- NOTE | 2022-01-21 06:20 | NUR ---
Blood Transfusion Second unit of blood transfusion is done, started at 0354. No reaction to the blood throughout the transfusion.
[2022-01-21] MEDS: LEVOTHYROXINE SODIUM 0.125 MG TABLET PO SCH (06:28)
[2022-01-21] MEDS ORDERED: MIDAZOLAM HCL 5 MG/5 ML VIAL ONE (07:40)
[2022-01-21] MEDS ORDERED: fentaNYL CITRATE/PF 100 MCG/2 ML AMP ONE (07:40)
--- NOTE | 2022-01-21 08:00 | NUR ---
RT NOTES 0800 Procedure started. Placed pt on 100% FIO2. No distress noted. 08 Procedure done. placed pt back to 50% fio2. ABG will do in 1hour.
--- NOTE | 2022-01-21 08:00 | NUR ---
RECEIVED PT IN BED #4, REPORT RECEIVED FROM REMEDIOS MARTIN. PT IS STABLE, NAD, VS-ST, SLIGHTLY HYPERTENSIVE, CURRENTLY IN EGD PROCEDURE AND WILL HAVE PEG TUBE PLACED. PT REMAINS NPO UNTIL FURTHER ORDERS FROM GI.
[2022-01-21] MEDS: PANTOPRAZOLE SODIUM 40 MG/VIAL (PROTONIX) IVP SCH ×3 (08:45→21:31)
[2022-01-21] MEDS: DOCUSATE SODIUM 100 MG CAPSULE PO SCH (08:56)
[2022-01-21] MEDS: CARVEDILOL 25 MG TABLET (COREG) PO SCH ×2 (08:57→21:32)
[2022-01-21] MEDS: MEGESTROL ACETATE 400 MG/10 ML UDC PO SCH ×2 (08:58→21:31)
[2022-01-21] MEDS: ASCORBIC ACID 500 MG TABLET PO SCH (08:58)
[2022-01-21] MEDS: MULTIVITAMINS TAB 1 TABLET PO SCH (08:58)
[2022-01-21] MEDS: FERROUS SULFATE 325 MG TABLET.DR PO SCH (08:58)
[2022-01-21] MEDS: ATORVASTATIN 20 MG TABLET PO SCH (08:58)
[2022-01-21] MEDS: GABAPENTIN 300 MG CAPSULE PO SCH ×2 (08:58→21:32)
[2022-01-21] MEDS: BALSAM PERU/CASTOR OIL 56.7 GM OINT...G. TP SCH (09:00)
[2022-01-21] MEDS: CEFEPIME 0.5 GM in D5W 50 ML IV SCH ×2 (09:35→21:34)
[2022-01-21] MEDS: PEG 400/HYPROMELLOSE/GLYCERIN 15 ML DROPS RIGHT EYE SCH ×4 (09:35→21:33)
[2022-01-21 09:53] LABS: BASOPHILS # (AUTO) 0.1 K/uL (0.0-0.2); BASOPHILS % (AUTO) 0.5 % (0.0-2.0); EOSINOPHILS # (AUTO) 0.2 K/uL (0.0-0.4); EOSINOPHILS % (AUTO) 1.3 % (0.0-4.0); HEMATOCRIT 33.1 % (36-48); HEMOGLOBIN 10.8 g/dL (12.0-16.0); LYMPHOCYTES # (AUTO) 0.7 K/uL (1.0-5.5); LYMPHOCYTES % (AUTO) 5.2 % (20.5-51.5); MEAN CORPUSCULAR HEMOGLOBIN 30 pg (27-31); MEAN CORPUSCULAR HGB CONC 33 % (32-36); MEAN CORPUSCULAR VOLUME 92 fL (79.0-98.0); MONOCYTES # (AUTO) 0.8 K/uL (0.0-1.0); MONOCYTES % (AUTO) 6.5 % (1.7-9.3); NEUTROPHILS # (AUTO) 11.1 K/uL (1.8-7.7); NEUTROPHILS % (AUTO) 86.5 % (40.0-70.0); PLATELET COUNT (AUTO) 181 K/uL (130-430); WHITE BLOOD COUNT (AUTO) 12.8 K/uL (4.8-10.8)
--- NOTE | 2022-01-21 10:05 | NUR ---
IV ABX CEFEPIME COMPLETED.
[2022-01-21 10:06] LABS: ALANINE AMINOTRANSFERASE 10 U/L (12-78); ALBUMIN 1.7 g/dL (3.4-4.8); ANION GAP 8 (5-15); ASPARTATE AMINOTRANSFERASE 23 U/L (10-37); CALCIUM 7.4 mg/dL (8.4-11.0); CHLORIDE 107 mmol/L (98-107); CREATININE 1.09 mg/dL (0.55-1.30); GLUCOSE 139 mg/dL (70-99); PHOSPHORUS 1.3 mg/dL (2.7-4.5); POTASSIUM 3.7 mmol/L (3.5-5.1); SODIUM SERUM 138 mmol/L (136-145); TOTAL BILIRUBIN 0.6 mg/dL (0.0-1.0); UREA NITROGEN, BLOOD 14 mg/dL (8-21)
--- NOTE | 2022-01-21 11:12 | NUR ---
RT NOTES 1112 Titrated fio2 to 40%. pt tolerating well. pt saturating 96%. no distress noted.
[2022-01-21] MEDS: METOCLOPRAMIDE HCL 10 MG/2 ML VIAL IVP SCH ×2 (12:14→16:14)
[2022-01-21] MEDS: ACETAMINOPHEN 325 MG TABLET PO PRN (12:43)
--- NOTE | 2022-01-21 12:44 | NUR ---
rt notes 1244 Pt placed back to 50% fio2, pt complaining of SOB. will continue to monitor pt.
--- NOTE | 2022-01-21 12:57 | NUR ---
PT MOUTHED YES TO A 6 OUT OF 10 PAIN. NORCO WAS OFFERED AND SHE MOUTHED THAT SHE WANTED TYLENOL. I CONFIRMED AND SHE NODDED HER HEAD YES. ACETAMINOPHEN WAS ADMINISTERED FOR PAIN THROUGH HER G-TUBE.
--- NOTE | 2022-01-21 13:45 | NUR ---
DR. CARVALHO RETURNED PHONE CALL AND I ASKED IF WE CAN PLACE A DENNISON CATHETER, PT HAS SOME MILD REDNESS FROM URINE, AND PREVIOUSLY DOCUMENTED SACRAL WOUND. ORDER RECEIVED AND WRITTEN
--- NOTE | 2022-01-21 14:15 | NUR ---
DENNISON CATHETER PLACED AND TOLERATED BY PATIENT WELL. URINE DRAINING WELL.
--- NOTE | 2022-01-21 14:41 | NUR ---
Nutrition F/U Admitting Diagnosis PNA, UTI Medical History Comment: Chronic respiratory failure, s/p trach (not vent dependent), CKD, anemia, COPD, CHF, hypothyroidism, DM 01/17 ST Swallow Evaluation - Recommended PO diet of puree/thin liquid with 1:1 feeder and full aspiration precautions. PO intake only when PMV is in place. SARS-CoV-2 Ag (Rapid) Negative 01/15 Subjective Information Pt due for high risk F/U. Per EMR review, pt on mechanical vent x3 days. Matias score 10, wound noted on R buttocks, 1+ pitting edema on BLE. Last BM x3 today. Pt had GT placement today, feedings can start tomorrow AM per MD. Per ICU rounds, pt has anemia, low Hgb and had blood transfusions last night. Current Diet Order/Nutrition Support Jevity 1.2 @40 mL/hr, free water flush 50 mL Q6h x0 days; PPN D20%, AA8.5% at 55 ml/hr Patient/Significant Other Unable To Verbalize Education Provided Not Indicated Pertinent Medications D5% 1/2NS at 50 ml/hr x20 hrs (provides 170 kcals/day), synthroid, Megace, Vit C, FeSO4, Protonix, MVI, Colace, Lipitor, MOM, dulcolax Pertinent Labs 01/20: K 3.1 L, Cr 1.39 H, BG 137 H, Fe 22 L, ALT 10 L, Alb 1.6 L Height (Feet) 5 feet Height (Inches) 2.00 inches Weight (Pounds) 131 pounds no changes since 01/15 Weight (Calculated Kilograms) 59.040521 kilograms Patient Weight 59.421 kg Body Mass Index 23.96 kg/m2 Usual Weight 147 lbs %UBW 89 %IBW 119 [place]/Adjusted Body Weight 110#/50 kg Weight Status Appropriate Usual Diet At Home Pureed (*ongoing) Estimated Energy Expenditure (kcals/day) 1135 kcals/day (PSU d/t critical illness, intubation; Ve: 8.9, Tmax: 36.6'C.) (*ongoing) Estimated Protein Required (g/day) 47 - 59 g/day (0.8 1 g/kg CBW d/t CKD vs. wound healing and COPD) (*ongoing) Estimated Fluid Required (l/day) Per sliver lapper/line maintainer section d/t CKD/CHF Problem/Etiology/Signs/Symptoms Significant weight loss r/t unknown etiology and poor oral intake AEB 11% weight loss in 30 days. (*Ongoing) Altered nutrition-related labs R/T endocrine dysfunction AEB elevated BG lab values. (*New) Expected Outcomes/Goals Monitor nutrition support w/ goal of pt meeting greater than 75% of estimated needs, labs trending WNL, normal GI function, skin integrity, wt maintenance. Dietitian Recommendations * Glucerna 1.5 @30 mL/hr, free water flush 50 mL Q6h (per MD), Omar BID Provides: 1240 kcals/day, 64 g protein/day and 746 mL free water/day. Meets: 109% of caloric needs and 108% of upper protein needs. * Wean off PPN support once EN is infusing without difficulties Follow Up High Risk: F/U in 2-3 days Follow Up By January 24, 2022 Signed: 01/21/22 at 1442 by Fern HOBBS <Co-Signature Required> Co-Signed: 01/21/22 at [address]
--- NOTE | 2022-01-21 14:42 | NUR ---
Dietitian Recommendations * Glucerna 1.5 @30 mL/hr, free water flush 50 mL Q6h (per MD), Omar BID Provides: 1240 kcals/day, 64 g protein/day and 746 mL free water/day. Meets: 109% of caloric needs and 108% of upper protein needs. * Wean off PPN support once EN is infusing without difficulties LP, RD Please refer to Nutrition F/U for details. Signed: 01/21/22 at 1442 by Fern HOBBS <Co-Signature Required> Co-Signed: 01/21/22 at [address]
--- NOTE | 2022-01-21 14:45 | NUR ---
Nutrition Note NANCY called Dr. Naidu's office to relay rec for TF. NANCY spoke w/ bilingual receptionist. She stated she would page physician. Addendum: 01/21/22 at [address] NANCY has not yet received call back. NANCY called Dr. Naidu's office again and second page was made. Addendum: 01/21/22 at [address] NANCY received call back from Dr. Naidu. He was agreeable w/ NANCY rec for TF. Addendum: 01/21/22 at [address] NANCY called ICU and spoke w/ pt's primary RN to relay new TF order; he stated he saw the new order come through and is aware.
--- NOTE | 2022-01-21 16:15 | NUR ---
PT RESTING AT THIS TIME, AFTERNOON MEDICATIONS PROVIDED, NO SIGNS OF PAIN OR DISCOMFORT
--- NOTE | 2022-01-21 17:30 | NUR ---
RECEIVED LAB NOTIFICATION OF MRSA POSITIVE OF SPUTUM
--- NOTE | 2022-01-21 19:05 | NUR ---
Opening notes Received report from endorsing morning shift REMEDIOS Noriega for continuity of care. Patient is lying in bed in no signs of distress with IVF D5NS @50mL/hr and TPN @ 56mL/hr. Patient's vital signs blood pressure 171/82, heart rate 95, respirations 26, and SPO2 98%. Patient's vent settings tidal volume 400, FIO2 40%, peep 5, and rate 14. Eng catheter is in place draining to gravity yellow in color. Bed is locked and in lowest position, fall and safety precautions is in place. Addendum: 01/22/22 at 0320 by Rachel Boyle RN FIO2 50%.
[2022-01-21] MEDS ORDERED: [UNRECOGNIZED DRUG - OTHER] IV SCH ×7 (21:00)
[2022-01-21] MEDS ORDERED: K PHOS IV SCH ×7 (21:00)
[2022-01-21] MEDS ORDERED: TPN PERIPHERAL IV SCH ×7 (21:00)
[2022-01-21] MEDS ORDERED: POTASSIUM ACETATE IV SCH ×7 (21:00)
[2022-01-21] MEDS: LINEZOLID 300 ML IV SCH (21:33)
[2022-01-22] VITALS (34 sets, daily range): BP systolic 3–153
--- NOTE | 2022-01-22 00:21 | NUR ---
MD Dr. Garcia is in the unit rounding on patient. Gave verbal report, no new order given.
[2022-01-22] MEDS: METOCLOPRAMIDE HCL 10 MG/2 ML VIAL IVP SCH ×3 (06:24→17:03)
[2022-01-22] MEDS: LEVOTHYROXINE SODIUM 0.125 MG TABLET PO SCH (06:24)
[2022-01-22] MEDS: clonazePAM 0.5 MG TABLET PO SCH ×3 (06:24→22:32)
[2022-01-22 07:07] LABS: ALANINE AMINOTRANSFERASE 9 U/L (12-78); ALBUMIN 1.4 g/dL (3.4-4.8); ANION GAP 5 (5-15); ASPARTATE AMINOTRANSFERASE 20 U/L (10-37); BASOPHILS # (AUTO) 0.1 K/uL (0.0-0.2); BASOPHILS % (AUTO) 0.5 % (0.0-2.0); CALCIUM 7.3 mg/dL (8.4-11.0); CHLORIDE 104 mmol/L (98-107); EOSINOPHILS # (AUTO) 0.3 K/uL (0.0-0.4); GLUCOSE 113 mg/dL (70-99); HEMATOCRIT 29.4 % (36-48); HEMOGLOBIN 9.9 g/dL (12.0-16.0); LYMPHOCYTES # (AUTO) 0.8 K/uL (1.0-5.5); LYMPHOCYTES % (AUTO) 7.4 % (20.5-51.5); MEAN CORPUSCULAR HEMOGLOBIN 31 pg (27-31); MEAN CORPUSCULAR HGB CONC 34 % (32-36); MEAN CORPUSCULAR VOLUME 91 fL (79.0-98.0); MONOCYTES # (AUTO) 0.7 K/uL (0.0-1.0); MONOCYTES % (AUTO) 6.3 % (1.7-9.3); NEUTROPHILS % (AUTO) 82.8 % (40.0-70.0); PHOSPHORUS 1.5 mg/dL (2.7-4.5); PLATELET COUNT (AUTO) 170 K/uL (130-430); POTASSIUM 4.1 mmol/L (3.5-5.1); RED BLOOD CELL COUNT(AUTO) 3.23 MIL/uL (4.2-6.2); RED CELL DISTRIBUTION WIDTH 18.8 % (9.0-15.0); SODIUM SERUM 134 mmol/L (136-145); TOTAL BILIRUBIN 0.2 mg/dL (0.0-1.0); UREA NITROGEN, BLOOD 15 mg/dL (8-21); WHITE BLOOD COUNT (AUTO) 10.9 K/uL (4.8-10.8)
[2022-01-22] MEDS: ALBUTEROL SULFATE 0.083% 2.5 MG/3 ML VIAL.NEB INH SCH ×3 (07:14→20:35)
--- NOTE | 2022-01-22 07:26 | NUR ---
initial Bedside shift report received from murtaza WHITTAKER for continuity of care
[2022-01-22 07:51] LABS: TRIGLYCERIDES 104 mg/dL (30-150)
[2022-01-22] MEDS: LINEZOLID 300 ML IV SCH ×2 (08:45→22:04)
[2022-01-22] MEDS: BALSAM PERU/CASTOR OIL 56.7 GM OINT...G. TP SCH (08:45)
[2022-01-22] MEDS: PANTOPRAZOLE SODIUM 40 MG/VIAL (PROTONIX) IVP SCH ×2 (08:47→22:05)
[2022-01-22] MEDS: GABAPENTIN 300 MG CAPSULE PO SCH ×2 (08:47→22:05)
[2022-01-22] MEDS: ASCORBIC ACID 500 MG TABLET PO SCH (08:47)
[2022-01-22] MEDS: DOCUSATE SODIUM 100 MG CAPSULE PO SCH (08:47)
[2022-01-22] MEDS: ATORVASTATIN 20 MG TABLET PO SCH (08:47)
[2022-01-22] MEDS: FERROUS SULFATE 325 MG TABLET.DR PO SCH (08:47)
[2022-01-22] MEDS: MULTIVITAMINS TAB 1 TABLET PO SCH (08:47)
[2022-01-22] MEDS: CARVEDILOL 25 MG TABLET (COREG) PO SCH ×2 (09:00→21:00)
[2022-01-22] MEDS: CEFEPIME 0.5 GM in D5W 50 ML IV SCH ×2 (09:02→22:06)
[2022-01-22] MEDS: PEG 400/HYPROMELLOSE/GLYCERIN 15 ML DROPS RIGHT EYE SCH ×4 (09:02→22:06)
[2022-01-22] MEDS: MEGESTROL ACETATE 400 MG/10 ML UDC PO SCH ×2 (11:51→22:05)
[2022-01-22] MEDS: D5NS 1,000 ML IV SCH (12:12)
[2022-01-22] MEDS: SOD FERRIC GLUC COMPLEX/SUC 125 MG in NS 100 ML IV SCH (17:54)
[2022-01-22] MEDS ORDERED: [UNRECOGNIZED DRUG - OTHER] IV SCH ×8 (21:00)
[2022-01-22] MEDS ORDERED: TPN PERIPHERAL IV SCH ×8 (21:00)
[2022-01-22] MEDS ORDERED: K PHOS IV SCH ×8 (21:00)
[2022-01-22] MEDS ORDERED: POTASSIUM ACETATE IV SCH ×8 (21:00)
[2022-01-23] VITALS (28 sets, daily range): BP systolic 87–139
[2022-01-23] MEDS: HYDROcodone/ACETAMIN 5-325 MG TAB (NORCO/ VICODIN) PO PRN ×2 (00:47→23:00)
[2022-01-23] MEDS: ALBUTEROL SULFATE 0.083% 2.5 MG/3 ML VIAL.NEB INH SCH ×4 (01:46→21:34)
[2022-01-23 07:08] LABS: ALBUMIN 1.3 g/dL (3.4-4.8); ANION GAP 5 (5-15); CALCIUM 7.6 mg/dL (8.4-11.0); CHLORIDE 103 mmol/L (98-107); CREATININE 1.03 mg/dL (0.55-1.30); GLUCOSE 98 mg/dL (70-99); PHOSPHORUS 2.4 mg/dL (2.7-4.5); POTASSIUM 4.4 mmol/L (3.5-5.1); SODIUM SERUM 133 mmol/L (136-145); TOTAL BILIRUBIN 0.1 mg/dL (0.0-1.0); UREA NITROGEN, BLOOD 18 mg/dL (8-21)
[2022-01-23] MEDS: METOCLOPRAMIDE HCL 10 MG/2 ML VIAL IVP SCH ×3 (07:22→17:29)
[2022-01-23] MEDS: clonazePAM 0.5 MG TABLET PO SCH ×3 (07:22→22:58)
[2022-01-23] MEDS: LEVOTHYROXINE SODIUM 0.125 MG TABLET PO SCH (07:23)
--- NOTE | 2022-01-23 07:28 | NUR ---
ENDORSEMENT Patient care endorsed to sundeep WHITTAKER.
[2022-01-23 07:54] LABS: ASPARTATE AMINOTRANSFERASE 105 U/L (10-37)
[2022-01-23 07:55] LABS: ALANINE AMINOTRANSFERASE 39 U/L (12-78)
[2022-01-23] MEDS: PANTOPRAZOLE SODIUM 40 MG/VIAL (PROTONIX) IVP SCH ×2 (09:29→22:46)
[2022-01-23] MEDS: ASCORBIC ACID 500 MG TABLET PO SCH (09:29)
[2022-01-23] MEDS: GABAPENTIN 300 MG CAPSULE PO SCH ×2 (09:33→22:59)
[2022-01-23] MEDS: DOCUSATE SODIUM 100 MG CAPSULE PO SCH (09:33)
[2022-01-23] MEDS: MULTIVITAMINS TAB 1 TABLET PO SCH (09:33)
[2022-01-23] MEDS: ATORVASTATIN 20 MG TABLET PO SCH (09:33)
[2022-01-23] MEDS: FERROUS SULFATE 325 MG TABLET.DR PO SCH (09:33)
[2022-01-23] MEDS: CARVEDILOL 25 MG TABLET (COREG) PO SCH ×2 (09:33→21:00)
[2022-01-23] MEDS: LINEZOLID 300 ML IV SCH ×2 (09:35→22:45)
[2022-01-23] MEDS: CEFEPIME 0.5 GM in D5W 50 ML IV SCH ×2 (09:40→21:00)
[2022-01-23] MEDS: D5NS 1,000 ML IV SCH (09:41)
[2022-01-23] MEDS: MEGESTROL ACETATE 400 MG/10 ML UDC PO SCH ×3 (10:00→22:58)
[2022-01-23] MEDS: PEG 400/HYPROMELLOSE/GLYCERIN 15 ML DROPS RIGHT EYE SCH ×5 (10:16→21:00)
--- NOTE | 2022-01-23 10:40 | NUR ---
RT NOTES Vent to SIMV 10 PS 12. No adverse reactions noted. Will monitor pt. Rn notified.
[2022-01-23] MEDS: BALSAM PERU/CASTOR OIL 56.7 GM OINT...G. TP SCH (10:48)
--- NOTE | 2022-01-23 13:00 | NUR ---
RT NOTES Per RN, pt complained of SOB, vent back to AC
--- NOTE | 2022-01-23 13:35 | NUR ---
RT NOTES Called to bedside, pt complained of breaths being delivered too fast, lowered peak flow. Then Pt stated she's SOB. Per dtr, she might be anxious, which she noticed the same thing about the same time yesterday and stated pt. gets excited when she's around. Dtr requesting for xanax, notified RN.
[2022-01-23] MEDS: SOD FERRIC GLUC COMPLEX/SUC 125 MG in NS 100 ML IV SCH (17:30)
--- NOTE | 2022-01-23 19:30 | NUR ---
Received from ICU Patient was received from the ICU. Given report from ICU AM shift nurse. Patient was resting in bed. RT had set up vent and oxygen. g-tube feeding was also set up. call light was within reach and bed was placed at lowest setting. patient is showing no signs of distress at this time.
[2022-01-23] MEDS ORDERED: TPN PERIPHERAL IV SCH ×7 (21:00)
[2022-01-23] MEDS ORDERED: K PHOS IV SCH ×7 (21:00)
[2022-01-23] MEDS ORDERED: TRACE ELEMENTS IV SCH ×7 (21:00)
[2022-01-23] MEDS ORDERED: [UNRECOGNIZED DRUG - OTHER] IV SCH ×7 (21:00)
[2022-01-23] MEDS ORDERED: NA PHOS IV SCH ×7 (21:00)
--- NOTE | 2022-01-23 23:50 | NUR ---
Dr. Cannon contacted about Midline Contacted Dr. Cannon who is on-call for Dr. Mccormick regarding her midline on her left upper arm. The site was noted to be swollen and bright pink in color. There was also weeping noted at the site. Dr. cannon stated that "no one is going to come out and place a central line at midline." when asked if a order could be given for a central line so it could be placed in the morning he stated "place a peripheral line". I informed him that both of her arms had a large amount of edema. Dr. Cannon state "hep lock it and have them take care of it in the morning". All fluids were stopped.
[2022-01-24] MEDS: ALBUTEROL SULFATE 0.083% 2.5 MG/3 ML VIAL.NEB INH SCH ×4 (01:24→20:28)
[2022-01-24] MEDS: D5NS 1,000 ML IV SCH (04:12)
[2022-01-24] MEDS: HYDROcodone/ACETAMIN 5-325 MG TAB (NORCO/ VICODIN) PO PRN ×3 (04:41→21:25)
[2022-01-24] MEDS: ALPRAZolam 0.25 MG TABLET PO PRN ×2 (04:41→14:55)
[2022-01-24] MEDS: METOCLOPRAMIDE HCL 10 MG/2 ML VIAL IVP SCH ×3 (06:12→16:46)
[2022-01-24] MEDS: LEVOTHYROXINE SODIUM 0.125 MG TABLET PO SCH (06:14)
[2022-01-24] MEDS: clonazePAM 0.5 MG TABLET PO SCH ×3 (06:14→21:24)
[2022-01-24 06:46] LABS: ALANINE AMINOTRANSFERASE 64 U/L (12-78); ALBUMIN 1.3 g/dL (3.4-4.8); ANION GAP 7 (5-15); ASPARTATE AMINOTRANSFERASE 117 U/L (10-37); CALCIUM 7.6 mg/dL (8.4-11.0); CHLORIDE 102 mmol/L (98-107); CREATININE 1.13 mg/dL (0.55-1.30); GLUCOSE 82 mg/dL (70-99); PHOSPHORUS 3.2 mg/dL (2.7-4.5); POTASSIUM 4.7 mmol/L (3.5-5.1); SODIUM SERUM 133 mmol/L (136-145); TOTAL BILIRUBIN 0.3 mg/dL (0.0-1.0); UREA NITROGEN, BLOOD 18 mg/dL (8-21)
[2022-01-24 06:47] LABS: BASOPHILS # (AUTO) 0.1 K/uL (0.0-0.2); BASOPHILS % (AUTO) 0.7 % (0.0-2.0); EOSINOPHILS # (AUTO) 0.3 K/uL (0.0-0.4); EOSINOPHILS % (AUTO) 3.9 % (0.0-4.0); HEMATOCRIT 30.1 % (36-48); LYMPHOCYTES % (AUTO) 11.6 % (20.5-51.5); MEAN CORPUSCULAR HEMOGLOBIN 31 pg (27-31); MEAN CORPUSCULAR HGB CONC 33 % (32-36); MEAN CORPUSCULAR VOLUME 93 fL (79.0-98.0); MONOCYTES # (AUTO) 0.9 K/uL (0.0-1.0); MONOCYTES % (AUTO) 10.7 % (1.7-9.3); NEUTROPHILS # (AUTO) 6.2 K/uL (1.8-7.7); NEUTROPHILS % (AUTO) 73.1 % (40.0-70.0); PLATELET COUNT (AUTO) 212 K/uL (130-430); RED BLOOD CELL COUNT(AUTO) 3.24 MIL/uL (4.2-6.2); RED CELL DISTRIBUTION WIDTH 17.6 % (9.0-15.0); WHITE BLOOD COUNT (AUTO) 8.4 K/uL (4.8-10.8)
--- NOTE | 2022-01-24 07:40 | NUR ---
rt notes 0740 Pt placed to SIMV 10, No distress noted. Pt saturating 97%. will do ABG in 1 hour. will continue to monitor pt.
[2022-01-24 08:40] VITALS: BP_SYST 91
[2022-01-24] MEDS: LINEZOLID 300 ML IV SCH (09:00)
[2022-01-24] MEDS: PANTOPRAZOLE SODIUM 40 MG/VIAL (PROTONIX) IVP SCH (09:00)
[2022-01-24] MEDS: CEFEPIME 0.5 GM in D5W 50 ML IV SCH ×2 (09:00→21:00)
[2022-01-24] MEDS: FERROUS SULFATE 325 MG TABLET.DR PO SCH (09:44)
[2022-01-24] MEDS: ATORVASTATIN 20 MG TABLET PO SCH (09:44)
[2022-01-24] MEDS: MEGESTROL ACETATE 400 MG/10 ML UDC PO SCH ×2 (09:44→21:24)
[2022-01-24] MEDS: ASCORBIC ACID 500 MG TABLET PO SCH (09:44)
[2022-01-24] MEDS: MULTIVITAMINS TAB 1 TABLET PO SCH (09:45)
[2022-01-24] MEDS: CARVEDILOL 25 MG TABLET (COREG) PO SCH ×2 (09:46→21:26)
[2022-01-24] MEDS: DOCUSATE SODIUM 100 MG CAPSULE PO SCH (09:47)
[2022-01-24] MEDS: GABAPENTIN 300 MG CAPSULE PO SCH ×2 (09:58→21:25)
[2022-01-24] MEDS: BALSAM PERU/CASTOR OIL 56.7 GM OINT...G. TP SCH (09:58)
[2022-01-24] MEDS: PEG 400/HYPROMELLOSE/GLYCERIN 15 ML DROPS RIGHT EYE SCH ×4 (10:00→21:26)
[2022-01-24 10:17] VITALS: BP_SYST 91
[2022-01-24 12:36] VITALS: BP_SYST 90
--- NOTE | 2022-01-24 14:31 | NUR ---
DR ROYALIUM HERE AND SEEN PT, NOW TALKING TO PT'S DAUGHTER.
--- NOTE | 2022-01-24 14:37 | NUR ---
Nutrition F/U Admitting Diagnosis PNA, UTI Medical History Comment: Chronic respiratory failure, s/p trach (not vent dependent), CKD, anemia, COPD, CHF, hypothyroidism, DM 01/17 ST Swallow Evaluation - Recommended PO diet of puree/thin liquid with 1:1 feeder and full aspiration precautions. PO intake only when PMV is in place. SARS-CoV-2 Ag (Rapid) Negative 01/[address] bedside visit deferred d/t high workload. Per EMR review, pt transferred to telemetry; on mechanical vent x6 days. Matias score 11, wound noted on R buttocks, non-pitting edema on BLE; last BM x1 today; abd. is distended w/ active bowel sounds; receiving TF via GT, Glucerna 1.5 running at 10 ml/hr; GRV 100 ml 01/23; continues on TPN; PPN, IVF and current TF provide 1203 kcals/day, 76 g protein/day, meetin% of lower end of estimated caloric needs and 99% of lower end of estimated protein needs. BUN and Cr WNL, pt would benefit from increased protein for wound healing. Current Diet Order/Nutrition Support Glucerna 1.5 at 30 ml/hr (goal rate), FWF 50 ml Q6H (per MD), hold for GRV > 400 ml x2 days, TPN D20, AA8.5 @ 55 ml/hr TF, PPN and IVF Provide: 1923 kcals/day, 115 g protein/day, Meetin% of upper end of estimated caloric needs and 97% of upper end of estimated protein needs. Patient/Significant Other Unable To Verbalize Education Provided Not Indicated Pertinent Medications D5% 1/2NS at 50 ml/hr x20 hrs (provides 170 kcals/day), synthroid, Megace, Vit C, FeSO4, Protonix IV, MVI, Colace, Lipitor, MOM, Dulcolax, ferric sodium gluconate, reglan Pertinent Labs H/H 10 L/30.1 L, Na 133 L, Alb 1.3 L Height (Feet) 5 feet Height (Inches) 2.00 inches Weight (Pounds) 131 pounds no changes since 01/15 Weight (Calculated Kilograms) 59.672830 kilograms Patient Weight 59.421 kg Body Mass Index 23.96 kg/m2 Usual Weight 147 lbs %UBW 89 %IBW 119 [place]/Adjusted Body Weight 110#/50 kg Weight Status Appropriate Usual Diet At Home Pureed (*NEW) Estimated Energy Expenditure (kcals/day) 2392-9402 kcals/day (25-30 kcals/kg CBW for wound healing) (*NEW) Estimated Protein Required (g/day) 77 - 118 g/day (1.3-2 g/kg CBW d/t wound healing and COPD) (*ongoing) Estimated Fluid Required (l/day) Per hospital fellow/lav crewman d/t CKD/CHF Problem/Etiology/Signs/Symptoms Significant weight loss r/t unknown etiology and poor oral intake AEB 11% weight loss in 30 days. (*Ongoing) Altered nutrition-related labs R/T endocrine dysfunction AEB elevated BG lab values. (*New) Expected Outcomes/Goals Monitor nutrition support w/ goal of pt meeting greater than 75% of estimated needs, labs trending WNL, normal GI function, skin integrity, wt maintenance. Dietitian Recommendations * Glucerna 1.5 @45 mL/hr, free water flush 50 mL Q6h (per MD) Provides: 1620 kcals/day, 89 g protein/day and 1020 mL free water/day. Meets: 91% of upper end of estimated caloric needs and 75% of upper end of estimated protein needs. * Wean off PPN support and IVFonce EN is infusing without difficulties Follow Up High Risk: F/U in 2-3 days
--- NOTE | 2022-01-24 14:37 | NUR ---
Dietitian Recommendations * Glucerna 1.5 @45 mL/hr, free water flush 50 mL Q6h (per MD) Provides: 1620 kcals/day, 89 g protein/day and 1020 mL free water/day. Meets: 91% of upper end of estimated caloric needs and 75% of upper end of estimated protein needs. * Wean off PPN support and IVFonce EN is infusing without difficulties Please refer to Nutrition F/U for details.
[2022-01-24 16:37] LABS: PROTHROMBIN TIME 10.7 SECS (9.5-12.5)
--- NOTE | 2022-01-24 16:45 | NUR ---
PER CHARLINE DAVIS, THE PICC NURSE WILL BE COMING LATER.
[2022-01-24] MEDS: SOD FERRIC GLUC COMPLEX/SUC 125 MG in NS 100 ML IV SCH (16:46)
[2022-01-24 17:58] VITALS: BP_SYST 119
--- NOTE | 2022-01-24 19:28 | NUR ---
PT ENDORSED TO NIGHT NURSE, PT ON STABLE CONDITION, WAITING FOR PICC NURSE TO PLACE MIDLINE.
[2022-01-24 20:00] VITALS: BP_SYST 125
[2022-01-24] MEDS ORDERED: TPN PERIPHERAL IV SCH ×7 (21:00)
[2022-01-24] MEDS ORDERED: TRACE ELEMENTS IV SCH ×7 (21:00)
[2022-01-24] MEDS ORDERED: NA PHOS IV SCH ×7 (21:00)
[2022-01-24] MEDS ORDERED: [UNRECOGNIZED DRUG - OTHER] IV SCH ×7 (21:00)
[2022-01-24] MEDS ORDERED: K PHOS IV SCH ×7 (21:00)
[2022-01-25 00:10] VITALS: BP_SYST 82
[2022-01-25] MEDS: D5NS 1,000 ML IV SCH ×2 (00:12→20:12)
[2022-01-25] MEDS ORDERED: NS 500 ML IV ONE (00:15)
[2022-01-25] MEDS: LINEZOLID 300 ML IV SCH ×3 (01:18→22:00)
[2022-01-25] MEDS: PANTOPRAZOLE SODIUM 40 MG/VIAL (PROTONIX) IVP SCH ×3 (01:26→20:20)
[2022-01-25] MEDS: ALBUTEROL SULFATE 0.083% 2.5 MG/3 ML VIAL.NEB INH SCH ×4 (01:45→20:10)
[2022-01-25] MEDS: METOCLOPRAMIDE HCL 10 MG/2 ML VIAL IVP SCH ×3 (05:47→17:22)
[2022-01-25] MEDS: clonazePAM 0.5 MG TABLET PO SCH ×3 (06:18→22:00)
[2022-01-25] MEDS: LEVOTHYROXINE SODIUM 0.125 MG TABLET PO SCH (06:18)
[2022-01-25 07:57] VITALS: BP_SYST 120
[2022-01-25 08:07] LABS: ALANINE AMINOTRANSFERASE 82 U/L (12-78); ALBUMIN 1.5 g/dL (3.4-4.8); ANION GAP 8 (5-15); ASPARTATE AMINOTRANSFERASE 109 U/L (10-37); CALCIUM 7.6 mg/dL (8.4-11.0); CHLORIDE 103 mmol/L (98-107); CREATININE 1.23 mg/dL (0.55-1.30); GLUCOSE 94 mg/dL (70-99); PHOSPHORUS 4.2 mg/dL (2.7-4.5); SODIUM SERUM 135 mmol/L (136-145); TOTAL BILIRUBIN 0.2 mg/dL (0.0-1.0); UREA NITROGEN, BLOOD 20 mg/dL (8-21)
[2022-01-25] MEDS ORDERED: SODIUM POLYSTYRENE SULFONATE 15 GM/60 ML UDBTL PO ONE ×2 (08:30→17:15)
[2022-01-25] MEDS: MULTIVITAMINS TAB 1 TABLET PO SCH (09:34)
[2022-01-25] MEDS: ATORVASTATIN 20 MG TABLET PO SCH (09:34)
[2022-01-25] MEDS: GABAPENTIN 300 MG CAPSULE PO SCH ×2 (09:34→22:01)
[2022-01-25] MEDS: ASCORBIC ACID 500 MG TABLET PO SCH (09:34)
[2022-01-25] MEDS: MEGESTROL ACETATE 400 MG/10 ML UDC PO SCH ×2 (09:34→20:20)
[2022-01-25] MEDS: FERROUS SULFATE 325 MG TABLET.DR PO SCH (09:34)
[2022-01-25] MEDS: DOCUSATE SODIUM 100 MG CAPSULE PO SCH (09:34)
[2022-01-25] MEDS: CARVEDILOL 25 MG TABLET (COREG) PO SCH ×2 (09:36→20:22)
[2022-01-25] MEDS: CEFEPIME 0.5 GM in D5W 50 ML IV SCH ×2 (09:40→20:21)
[2022-01-25] MEDS: BALSAM PERU/CASTOR OIL 56.7 GM OINT...G. TP SCH (09:41)
[2022-01-25] MEDS: PEG 400/HYPROMELLOSE/GLYCERIN 15 ML DROPS RIGHT EYE SCH ×4 (09:42→22:01)
--- NOTE | 2022-01-25 12:03 | NUR ---
Discharge Planning: DCP faxed pt referral to [facility]#[phone] DCP to follow up Addendum: 01/25/22 at 1548 by Brittni Anne DP DCP faxed discharge planning order, DCP made admissions aware pt may DC tomorrow, CM requesting bed. DCP to follow up.
[2022-01-25 12:32] VITALS: BP_SYST 150
[2022-01-25] MEDS: ALPRAZolam 0.25 MG TABLET PO PRN (12:32)
--- NOTE | 2022-01-25 15:11 | NUR ---
RESIDUAL REMAINS AT 20-30 CC.
[2022-01-25 15:18] VITALS: BP_SYST 137
--- NOTE | 2022-01-25 16:13 | NUR ---
pager paged dr cannon for k level of 5.8 (1200 NN).
[2022-01-25] MEDS: SOD FERRIC GLUC COMPLEX/SUC 125 MG in NS 100 ML IV SCH (17:23)
[2022-01-25] MEDS ORDERED: [UNRECOGNIZED DRUG - OTHER] IV SCH ×8 (21:00)
[2022-01-25] MEDS ORDERED: TPN PERIPHERAL IV SCH ×8 (21:00)
[2022-01-25] MEDS ORDERED: SODIUM CHLORIDE IV SCH ×8 (21:00)
[2022-01-25] MEDS ORDERED: SODIUM ACETATE IV SCH ×8 (21:00)
[2022-01-26 01:43] VITALS: BP_SYST 140
[2022-01-26] MEDS: METOCLOPRAMIDE HCL 10 MG/2 ML VIAL IVP SCH ×3 (06:03→18:17)
[2022-01-26] MEDS: LEVOTHYROXINE SODIUM 0.125 MG TABLET PO SCH (06:03)
[2022-01-26] MEDS: clonazePAM 0.5 MG TABLET PO SCH ×3 (06:04→22:35)
[2022-01-26 06:52] LABS: BASOPHILS % (AUTO) 0.3 % (0.0-2.0); EOSINOPHILS # (AUTO) 0.3 K/uL (0.0-0.4); EOSINOPHILS % (AUTO) 3.6 % (0.0-4.0); HEMATOCRIT 28.9 % (36-48); HEMOGLOBIN 9.5 g/dL (12.0-16.0); LYMPHOCYTES % (AUTO) 10.2 % (20.5-51.5); MEAN CORPUSCULAR HEMOGLOBIN 31 pg (27-31); MEAN CORPUSCULAR HGB CONC 33 % (32-36); MEAN CORPUSCULAR VOLUME 93 fL (79.0-98.0); MONOCYTES # (AUTO) 0.8 K/uL (0.0-1.0); MONOCYTES % (AUTO) 8.9 % (1.7-9.3); NEUTROPHILS # (AUTO) 7.3 K/uL (1.8-7.7); PLATELET COUNT (AUTO) 222 K/uL (130-430); RED CELL DISTRIBUTION WIDTH 17.2 % (9.0-15.0); WHITE BLOOD COUNT (AUTO) 9.5 K/uL (4.8-10.8)
[2022-01-26 06:57] LABS: ALANINE AMINOTRANSFERASE 62 U/L (12-78); ALBUMIN 1.2 g/dL (3.4-4.8); ASPARTATE AMINOTRANSFERASE 57 U/L (10-37); CALCIUM 7.6 mg/dL (8.4-11.0); CHLORIDE 102 mmol/L (98-107); CREATININE 1.09 mg/dL (0.55-1.30); GLUCOSE 124 mg/dL (70-99); PHOSPHORUS 3.5 mg/dL (2.7-4.5); POTASSIUM 4.6 mmol/L (3.5-5.1); TOTAL BILIRUBIN 0.2 mg/dL (0.0-1.0); UREA NITROGEN, BLOOD 23 mg/dL (8-21)
[2022-01-26] MEDS: ALBUTEROL SULFATE 0.083% 2.5 MG/3 ML VIAL.NEB INH SCH ×3 (07:20→20:27)
[2022-01-26 07:54] LABS: ANION GAP 8 (5-15); SODIUM SERUM 136 mmol/L (136-145)
[2022-01-26 08:10] VITALS: BP_SYST 132
--- NOTE | 2022-01-26 08:10 | NUR ---
Opening Notes Patient is awake laying in bed. A/O x0. No apparent distress or pain noted. Vitals as charted. Elevated patient's right arm on a pillow. All needs met. Call light within reach. Safety and fall precautions in place.
[2022-01-26 09:23] VITALS: BP_SYST 132
[2022-01-26] MEDS: MULTIVITAMINS TAB 1 TABLET PO SCH (10:26)
[2022-01-26] MEDS: DOCUSATE SODIUM 100 MG CAPSULE PO SCH (10:26)
[2022-01-26] MEDS: PANTOPRAZOLE SODIUM 40 MG/VIAL (PROTONIX) IVP SCH ×2 (10:26→21:28)
[2022-01-26] MEDS: ASCORBIC ACID 500 MG TABLET PO SCH (10:26)
[2022-01-26] MEDS: GABAPENTIN 300 MG CAPSULE PO SCH ×2 (10:26→21:28)
[2022-01-26] MEDS: MEGESTROL ACETATE 400 MG/10 ML UDC PO SCH ×2 (10:26→21:27)
[2022-01-26] MEDS: ATORVASTATIN 20 MG TABLET PO SCH (10:26)
[2022-01-26] MEDS: CARVEDILOL 25 MG TABLET (COREG) PO SCH ×2 (10:27→21:29)
[2022-01-26] MEDS: LINEZOLID 300 ML IV SCH ×2 (10:48→21:27)
[2022-01-26] MEDS: BALSAM PERU/CASTOR OIL 56.7 GM OINT...G. TP SCH (10:50)
[2022-01-26] MEDS: PEG 400/HYPROMELLOSE/GLYCERIN 15 ML DROPS RIGHT EYE SCH ×4 (10:51→21:30)
[2022-01-26] MEDS: FERROUS SULFATE 325 MG TABLET.DR PO SCH (10:52)
[2022-01-26 11:34] VITALS: BP_SYST 119
--- NOTE | 2022-01-26 12:13 | NUR ---
Note Patient is awake laying in bed. No apparent distress noted. Patient is appears calm and relaxed. All needs met.
--- NOTE | 2022-01-26 13:53 | NUR ---
RT NOTE: 1353 Patient placed on SIMV 10, PS 12, 35% FiO2. Patient feels anxious right away. Daughter is at bedside encouraging patient to keep going. RN at bedside as well. 1410 Patient remains on SIMV and will keep patient as long as she tolerates. Will continue with Q2 vent checks as per policy. RN aware of changes. Addendum: 01/26/22 at 1413 by Lynn Reynolds RT Amended: Links added.
[2022-01-26] MEDS: ALPRAZolam 0.25 MG TABLET PO PRN (14:06)
--- NOTE | 2022-01-26 14:12 | NUR ---
Note Patient feeling anxious. RT and family at bedside. Provided medication to help patient ease anxiety as charted. Call light within reach. Safety and fall precautions in place.
[2022-01-26 15:25] VITALS: BP_SYST 110
[2022-01-26] MEDS: D5NS 1,000 ML IV SCH (18:17)
[2022-01-26] MEDS: SOD FERRIC GLUC COMPLEX/SUC 125 MG in NS 100 ML IV SCH (18:19)
--- NOTE | 2022-01-26 18:31 | NUR ---
Closing Note Patient is awake laying in bed watching TV. No apparent distress noted. Patient appears calm. Patient stable. Call light within reach. Safety and fall precautions in place. All needs met. Will endorse care to news clipping cutter RN.
--- NOTE | 2022-01-26 19:30 | NUR ---
RECEIVED REPORT ON PATIENT FROM DAYSHIFT rN, ASSUMED CARE, AND STARTED ASSESSMENT. PATIENT IS CALM AND COPING WELL AT THIS TIME. WILL CONTINUE TO MONITOR AND ASSESS FOR SAFETY AND COMFORT.
[2022-01-26 22:18] VITALS: BP_SYST 112
--- NOTE | 2022-01-26 23:00 | NUR ---
I WAS INFORMED BY THE RESPIRATORY THERAPIST THAT THE PATIENT HAD AN EPISODE OF EMESIS. THE REGURGITATED MATERIAL RESEMBLED TUBE FEEDING IN IT'S COLOR AND CONSISTENCY. THE RESIDUAL WAS CHECKED BUT ONLY 5 MLS WERE ASPIRATED. WILL CONTINUE TO MONITOR AND ASSESS FOR SAFETY AND COMFORT AND WILL MEDICATE PATIENT FOR NAUSEA.
[2022-01-27] MEDS ORDERED: ONDANSETRON HCL 4 MG/2 ML VIAL IVP PRN (00:15)
[2022-01-27] MEDS: ALBUTEROL SULFATE 0.083% 2.5 MG/3 ML VIAL.NEB INH SCH ×4 (01:39→19:58)
[2022-01-27 01:41] VITALS: BP_SYST 146
--- NOTE | 2022-01-27 02:00 | NUR ---
MEDICATED PATIENT WITH ZOFRAN 4MG, IVP PER MD ORDERS. PATIENT CONTINUED TO HAVE EMESIS EPISODES THAT NOW HAVE A COFFEE GROUND APPEARANCE. dR CARVALHO WAS CALLED AND MADE AWARE OF THE DEVELOPMENT. HE ORDERED A CBC IN THE MORNING AND TO CONNECT THE G-TUBE TO GRAVITY DRAINAGE. ORDERS PLACED AND G-TUBE SET TO GRAVITY PER MD ORDERS. WILL CONTINUE TO MONITOR AND ASSESS FOR SAFETY AND COMFORT.
[2022-01-27] MEDS: clonazePAM 0.5 MG TABLET PO SCH ×3 (06:21→21:26)
[2022-01-27] MEDS: LEVOTHYROXINE SODIUM 0.125 MG TABLET PO SCH (06:21)
--- NOTE | 2022-01-27 07:25 | NUR ---
REPORT GIVEN TO REMEDIOS ANTHONY, AND CARE WAS TURNED OVER TO HER.
[2022-01-27 08:08] LABS: BASOPHILS % (AUTO) 0.4 % (0.0-2.0); EOSINOPHILS # (AUTO) 0.2 K/uL (0.0-0.4); EOSINOPHILS % (AUTO) 1.8 % (0.0-4.0); HEMATOCRIT 32.5 % (36-48); HEMOGLOBIN 10.6 g/dL (12.0-16.0); MEAN CORPUSCULAR HEMOGLOBIN 30 pg (27-31); MEAN CORPUSCULAR HGB CONC 33 % (32-36); MEAN CORPUSCULAR VOLUME 93 fL (79.0-98.0); MONOCYTES # (AUTO) 0.7 K/uL (0.0-1.0); MONOCYTES % (AUTO) 6.2 % (1.7-9.3); NEUTROPHILS # (AUTO) 9.1 K/uL (1.8-7.7); NEUTROPHILS % (AUTO) 82.6 % (40.0-70.0); PLATELET COUNT (AUTO) 229 K/uL (130-430); WHITE BLOOD COUNT (AUTO) 11.1 K/uL (4.8-10.8)
[2022-01-27 08:30] VITALS: BP_SYST 147
--- NOTE | 2022-01-27 08:30 | NUR ---
Opening Notes Patient is awake lying in bed watching television. A/O x 2. No apparent distress noted. Patient declined assessment of wound, I will encourage assessment again. Patient denies pain. Call light within reach. Safety and fall precautions in place.
--- NOTE | 2022-01-27 08:47 | NUR ---
GI Rounds Spoke with Dr. Renee regarding emesis episodes. KUB to be ordered.
[2022-01-27] MEDS: PEG 400/HYPROMELLOSE/GLYCERIN 15 ML DROPS RIGHT EYE SCH ×5 (09:00→21:28)
--- NOTE | 2022-01-27 09:20 | NUR ---
RT NOTE: 09 Patient refusing ABG draw. Explained and educated patient on need of ABG draw, but patient contiues to refuse. Patient has been on SIMV 6, PS 12, 35% FiO2 since 0710am and is still tolerating well. Will continue with Q2 vent checks and suctioning as needed. RN was made aware of changes of patient refusal. Addendum: 01/27/22 at 0938 by Lynn Reynolds RT Amended: Links added.
--- NOTE | 2022-01-27 09:22 | NUR ---
Note Spoke with Lynn MCCAIN, patient refused blood draw for ABG.
[2022-01-27] MEDS: PANTOPRAZOLE SODIUM 40 MG/VIAL (PROTONIX) IVP SCH ×2 (09:34→21:25)
[2022-01-27] MEDS: MEGESTROL ACETATE 400 MG/10 ML UDC PO SCH ×2 (09:34→21:26)
[2022-01-27] MEDS: ASCORBIC ACID 500 MG TABLET PO SCH (09:35)
[2022-01-27] MEDS: DOCUSATE SODIUM 100 MG CAPSULE PO SCH (09:35)
[2022-01-27] MEDS: ATORVASTATIN 20 MG TABLET PO SCH (09:35)
[2022-01-27] MEDS: GABAPENTIN 300 MG CAPSULE PO SCH ×2 (09:36→21:26)
[2022-01-27] MEDS: MULTIVITAMINS TAB 1 TABLET PO SCH (09:36)
[2022-01-27] MEDS: CARVEDILOL 25 MG TABLET (COREG) PO SCH ×2 (09:36→21:26)
[2022-01-27] MEDS: FERROUS SULFATE 325 MG TABLET.DR PO SCH (09:36)
[2022-01-27] MEDS: D5NS 1,000 ML IV SCH ×2 (09:38→21:29)
[2022-01-27] MEDS: LINEZOLID 300 ML IV SCH ×2 (09:39→21:27)
[2022-01-27] MEDS: BALSAM PERU/CASTOR OIL 56.7 GM OINT...G. TP SCH (09:41)
[2022-01-27 11:26] VITALS: BP_SYST 126
[2022-01-27] MEDS: METOCLOPRAMIDE HCL 10 MG/2 ML VIAL IVP SCH ×2 (11:40→16:27)
--- NOTE | 2022-01-27 12:33 | NUR ---
CM: Discharge Barriers: reported from CN, the pt vomited last night, and not tolerate GT feeding. GI consult for SBO/Hernia and small bowel f/t are pending.
--- NOTE | 2022-01-27 14:29 | NUR ---
Note Patient is awake laying in bed watching television. Daughter at bedside. No apparent distress noted. All needs met.
--- NOTE | 2022-01-27 15:12 | NUR ---
Nutrition F/U Admitting Diagnosis PNA, UTI Reviewed Pertinent Medical/Surgical Hx Medical Record RN Pt Medical History Comment: Chronic respiratory failure, s/p trach (not vent dependent), CKD, anemia, dysphagia COPD, CHF, hypothyroidism, DM. Pt also found w/ healthcare-associated bacterial PNA and UTI. 01/17 ST Swallow Evaluation - Recommended PO diet of puree/thin liquid with 1:1 feeder and full aspiration precautions. PO intake only when PMV is in place. SARS-CoV-2 Ag (Rapid) Negative 01/15 Subjective Information Per EMR review, pt continues to be on vent. Pt no longer receiving PPN support. Pt is s/p PEG. Matias score 13, skin tear noted on R buttocks, 2+ pitting edema noted on bilateral arm and BLE. Last BM x1 today. 10 mL GRV noted 01/26. DI visited pt at bedside and noted no TF hanging or infusing. DI spoke to pts RN, RN reports pts MD requested TF to be paused d/t pt vomiting. RN reports KUB has been ordered. Pt is not meeting nutritional needs. Current Diet Order/Nutrition Support Glucerna 1.5 at 30 ml/hr (goal rate), FWF 50 ml Q6H (per MD) via GT x5 days currently not infusing Patient/Significant Other Unable To Verbalize Education Provided Not Indicated Pertinent Medications D5%NS at 75 ml/hr x13 hrs (provides 167 kcals/day), synthroid, Megace, Vit C, FeSO4, Protonix IV, MVI, Colace, Lipitor, MOM, Dulcolax, reglan Pertinent Labs BUN 23 H, BG 124 H, Alb 1.2 L, AST 57 H, WBC 11.1 H Height (Feet) 5 feet Height (Inches) 2.00 inches Weight (Pounds) 131 pounds no changes since 01/15 Patient Weight 59.421 kg Body Mass Index 23.96 kg/m2 Usual Weight 147 lbs %UBW 89 %IBW 119 [place]/Adjusted Body Weight 110#/50 kg Weight Status Appropriate Usual Diet At Home Pureed (*NEW) Estimated Energy Expenditure (kcals/day) 0660-2228 kcals/day (30-35 kcals/kg CBW d/t infection, wound healing) (*NEW) Estimated Protein Required (g/day) 59-77 g/day (1-1.3 g/kg CBW d/t COPD, wounds, CKD) (*ongoing) Estimated Fluid Required (l/day) Per etched circuit processor/pelt dropper d/t CKD/CHF Problem/Etiology/Signs/Symptoms Significant weight loss r/t unknown etiology and poor oral intake AEB 11% weight loss in 30 days. (*Ongoing) Altered nutrition-related labs R/T endocrine dysfunction AEB elevated BG lab values. (*Ongoing) Expected Outcomes/Goals Monitor EN tolerance and intakes w/ goal of pt meeting greater than 75% of estimated needs, labs trending WNL, normal GI function, skin integrity, wt maintenance. Dietitian Recommendations * Vital AF 1.2 at 50 ml/hr, free water flush 50 mL Q6h (per MD) Provides: 1600 kcals/day, 90 g protein/day and 1173 mL free water/day. Meets: 90% of lower end of estimated caloric needs and 117% of upper end of estimated protein needs. * Consider prokinetic agent for improved gut motility Follow Up High Risk: F/U in 2-3 days Signed: 01/27/22 at 1518 by Fern HOBBS <Co-Signature Required> Co-Signed: 01/27/22 at [address]
--- NOTE | 2022-01-27 15:18 | NUR ---
Dietitian Recommendations * Vital AF 1.2 at 50 ml/hr, free water flush 50 mL Q6h (per MD) Provides: 1600 kcals/day, 90 g protein/day and 1173 mL free water/day. Meets: 90% of lower end of estimated caloric needs and 117% of upper end of estimated protein needs. * Consider prokinetic agent for improved gut motility LP, RD Please refer to Nutrition F/U for details. Signed: 01/27/22 at 1519 by Fern HOBBS <Co-Signature Required> Co-Signed: 01/27/22 at [address]
[2022-01-27 16:16] VITALS: BP_SYST 120
[2022-01-27] MEDS: SOD FERRIC GLUC COMPLEX/SUC 125 MG in NS 100 ML IV SCH (16:29)
[2022-01-27] MEDS: ALPRAZolam 0.25 MG TABLET PO PRN (16:58)
--- NOTE | 2022-01-27 17:08 | NUR ---
Note Patient feeling anxious. Administered PRN medication as charted. BP 123/69, SPO2 98%. All needs met. Call light within reach. Safety and fall precautions in place.
--- NOTE | 2022-01-27 17:27 | NUR ---
RT NOTE: 1727 Patient has been on SIMV 6, PS 12, FiO2 35% since 0710 AM. Patient is tolerating current mode. Will endorse to NOC shift at current mode and return to AC if patient is unable to tolerate. Vitals have been stable the whole shift. No resp distress and trach is secure. Addendum: 01/27/22 at 1743 by Lynn Reynolds RT Amended: Links added.
--- NOTE | 2022-01-27 18:19 | NUR ---
Closing Note Patient is awake laying in bed. No apparent distress noted. Call light within reach. Safety and fall precautions in place. All needs met. Will endorse care to night nurse RN.
--- NOTE | 2022-01-27 19:30 | NUR ---
received report on patient from martha hernandez, assumed care, and started assessment.
[2022-01-27 19:49] VITALS: BP_SYST 120
[2022-01-27] MEDS ORDERED: GASTROGRAFIN 120 ML ONE ×2 (19:53→22:17)
[2022-01-27 20:00] VITALS: BP_SYST 123
--- NOTE | 2022-01-27 22:00 | NUR ---
AMI DOMINGUEZ AT BEDSIDE TO DO KUB. tHIS PRODUCTION CONTROL ANALYST PUSHED THE CONTRAST, GASTROGRAFFIN, VIA THE GTUBE AND CLAMPED IT FOR HER PROCEDURE. i WAS LATER INFORMED BY THE RESPIRATORY THERAPIST THAT THE PT HAD ANOTHER EPISODE OF EMESIS. I UNCLAMPED THE LINE AND LEFT IT OPEN TO GRAVITY. THE PATIENT WAS CLEANED UP. tHE KUB HAD BEEN COMPLETED SUCCESSFULLY. WILL CONTINUE TO MONITOR AND ASSESS FOR SAFETY AND COMFORT.
[2022-01-28] MEDS: ALBUTEROL SULFATE 0.083% 2.5 MG/3 ML VIAL.NEB INH SCH ×4 (00:22→19:48)
[2022-01-28 00:37] VITALS: BP_SYST 124
--- NOTE | 2022-01-28 02:19 | NUR ---
PLACED PT BACK ON AC @1240. PT VT WAS GRADUALLY DECREASING AND SHE WAS BECOMING TACHYPNEIC. PT TOLERATED SWITCH WELL WITH NO ABNORMAL CHANGES OR SIGNS OF VENT ASYNCHRONY.
[2022-01-28] MEDS: LEVOTHYROXINE SODIUM 0.125 MG TABLET PO SCH (06:39)
[2022-01-28] MEDS: METOCLOPRAMIDE HCL 10 MG/2 ML VIAL IVP SCH ×3 (06:39→17:23)
[2022-01-28] MEDS: clonazePAM 0.5 MG TABLET PO SCH ×3 (06:40→21:21)
--- NOTE | 2022-01-28 07:31 | NUR ---
REPORT GIVEN TO REMEDIOS DUBON, AND CARE WAS TURNED OVER TO HER.
[2022-01-28 08:00] VITALS: BP_SYST 123
[2022-01-28] MEDS: PEG 400/HYPROMELLOSE/GLYCERIN 15 ML DROPS RIGHT EYE SCH ×4 (09:00→21:18)
--- NOTE | 2022-01-28 09:30 | NUR ---
PLACED ON SIMV 10, PS 12 PER MD CLARKE ORDER. SPO2 99%, HR 93. PT TOLERATING WELL. WILL CONTINUE TO MONITOR PT.
[2022-01-28] MEDS: MEGESTROL ACETATE 400 MG/10 ML UDC PO SCH ×2 (10:07→21:18)
[2022-01-28] MEDS: DOCUSATE SODIUM 100 MG CAPSULE PO SCH (10:07)
[2022-01-28] MEDS: MULTIVITAMINS TAB 1 TABLET PO SCH (10:08)
[2022-01-28] MEDS: PANTOPRAZOLE SODIUM 40 MG/VIAL (PROTONIX) IVP SCH ×2 (10:08→21:22)
[2022-01-28] MEDS: CARVEDILOL 25 MG TABLET (COREG) PO SCH ×2 (10:08→21:20)
[2022-01-28] MEDS: ATORVASTATIN 20 MG TABLET PO SCH (10:08)
[2022-01-28] MEDS: ASCORBIC ACID 500 MG TABLET PO SCH (10:08)
[2022-01-28] MEDS: FERROUS SULFATE 325 MG TABLET.DR PO SCH (10:08)
[2022-01-28] MEDS: BALSAM PERU/CASTOR OIL 56.7 GM OINT...G. TP SCH (10:09)
[2022-01-28] MEDS: GABAPENTIN 300 MG CAPSULE PO SCH ×2 (10:14→21:21)
[2022-01-28] MEDS: D5NS 1,000 ML IV SCH (10:49)
[2022-01-28 11:49] VITALS: BP_SYST 101
[2022-01-28 15:59] VITALS: BP_SYST 110
[2022-01-28] MEDS: SOD FERRIC GLUC COMPLEX/SUC 125 MG in NS 100 ML IV SCH (17:25)
[2022-01-28] MEDS: ACETAMINOPHEN 325 MG TABLET PO PRN (17:44)
--- NOTE | 2022-01-28 18:30 | NUR ---
Pt has had an uneventful shift thus far. She is able to communicate wants et needs. Her daughter is present at bedside. Pt remains on the ventilator. HOB elevated semifowler's position. Pt exhibits no s/s respiratory distress. Peg tube feedings remain on hold. Pt's abdominal hernia remains protruded, but her daughter states that it is much better that what it had been. Pt medicated earlier for c/o general pain. No further c/o at this time.
--- NOTE | 2022-01-28 19:15 | NUR ---
received report from martha dooley, assumed care, and started assessment.
[2022-01-28] MEDS ORDERED: *PPN PER PHARMACY XX PRN (19:30)
[2022-01-28 20:00] VITALS: BP_SYST 126
[2022-01-29 00:26] VITALS: BP_SYST 104
[2022-01-29] MEDS: ALBUTEROL SULFATE 0.083% 2.5 MG/3 ML VIAL.NEB INH SCH ×4 (01:14→19:20)
--- NOTE | 2022-01-29 02:42 | NUR ---
PATIENT IS SOUND ASLEEP AT THIS TIME RESTING IN NO APPARENT DISTRESS, tHE GTUBE REMAINS CONNECTED TO GRAVITY DRAINAGE, SHE WAS SUCTIONED BY RESPIRATORY, AND COPING WELL AT THIS TIME. WILL CONTINUE TO MONITOR, AND ASSESS FOR SAFETY AND COMFORT.
[2022-01-29] MEDS: clonazePAM 0.5 MG TABLET PO SCH ×3 (06:03→21:11)
[2022-01-29] MEDS: METOCLOPRAMIDE HCL 10 MG/2 ML VIAL IVP SCH ×3 (06:03→17:04)
--- NOTE | 2022-01-29 07:26 | NUR ---
REPORT GIVEN TO REMEDIOS CADENA, AND CARE WAS TURNED OVER TO HIM.
[2022-01-29 07:57] VITALS: BP_SYST 128
[2022-01-29] MEDS: MULTIVITAMINS TAB 1 TABLET PO SCH (09:12)
[2022-01-29] MEDS: FERROUS SULFATE 325 MG TABLET.DR PO SCH (09:12)
[2022-01-29] MEDS: MEGESTROL ACETATE 400 MG/10 ML UDC PO SCH ×2 (09:12→21:11)
[2022-01-29] MEDS: GABAPENTIN 300 MG CAPSULE PO SCH ×2 (09:12→21:11)
[2022-01-29] MEDS: ASCORBIC ACID 500 MG TABLET PO SCH (09:12)
[2022-01-29] MEDS: PANTOPRAZOLE SODIUM 40 MG/VIAL (PROTONIX) IVP SCH ×2 (09:12→21:12)
[2022-01-29] MEDS: CARVEDILOL 25 MG TABLET (COREG) PO SCH ×2 (09:13→21:12)
[2022-01-29] MEDS: DOCUSATE SODIUM 100 MG CAPSULE PO SCH (09:13)
[2022-01-29] MEDS: ATORVASTATIN 20 MG TABLET PO SCH (09:13)
[2022-01-29] MEDS: BALSAM PERU/CASTOR OIL 56.7 GM OINT...G. TP SCH (09:21)
[2022-01-29] MEDS: PEG 400/HYPROMELLOSE/GLYCERIN 15 ML DROPS RIGHT EYE SCH ×4 (09:22→21:13)
[2022-01-29] MEDS: D5NS 1,000 ML IV SCH ×2 (09:31→13:29)
[2022-01-29 10:28] LABS: BASOPHILS # (AUTO) 0.1 K/uL (0.0-0.2); BASOPHILS % (AUTO) 0.7 % (0.0-2.0); EOSINOPHILS # (AUTO) 0.3 K/uL (0.0-0.4); EOSINOPHILS % (AUTO) 4.2 % (0.0-4.0); HEMOGLOBIN 8.8 g/dL (12.0-16.0); LYMPHOCYTES % (AUTO) 12.3 % (20.5-51.5); MEAN CORPUSCULAR HEMOGLOBIN 31 pg (27-31); MEAN CORPUSCULAR HGB CONC 33 % (32-36); MEAN CORPUSCULAR VOLUME 94 fL (79.0-98.0); MONOCYTES # (AUTO) 0.6 K/uL (0.0-1.0); MONOCYTES % (AUTO) 7.1 % (1.7-9.3); NEUTROPHILS % (AUTO) 75.7 % (40.0-70.0); PLATELET COUNT (AUTO) 189 K/uL (130-430); RED BLOOD CELL COUNT(AUTO) 2.86 MIL/uL (4.2-6.2); RED CELL DISTRIBUTION WIDTH 17.5 % (9.0-15.0); WHITE BLOOD COUNT (AUTO) 7.9 K/uL (4.8-10.8)
[2022-01-29 10:41] LABS: ANION GAP 2 (5-15); CALCIUM 7.5 mg/dL (8.4-11.0); CHLORIDE 106 mmol/L (98-107); CREATININE 1.09 mg/dL (0.55-1.30); GLUCOSE 97 mg/dL (70-99); POTASSIUM 4.4 mmol/L (3.5-5.1); SODIUM SERUM 134 mmol/L (136-145); UREA NITROGEN, BLOOD 12 mg/dL (8-21)
[2022-01-29 11:07] LABS: ALANINE AMINOTRANSFERASE 31 U/L (12-78); ALBUMIN 1.3 g/dL (3.4-4.8); ASPARTATE AMINOTRANSFERASE 21 U/L (10-37); PHOSPHORUS 3.1 mg/dL (2.7-4.5); TOTAL BILIRUBIN 0.3 mg/dL (0.0-1.0); TRIGLYCERIDES 67 mg/dL (30-150)
[2022-01-29 11:24] VITALS: BP_SYST 100
[2022-01-29] MEDS: ALPRAZolam 0.25 MG TABLET PO PRN (12:03)
--- NOTE | 2022-01-29 14:52 | NUR ---
PAGED DR CARVALHO TO GET ORDER FOR A REGULAR SCHEDULED ANTI ANXIETY MED. PT IS ON XANAX 0.25 Q12P.
--- NOTE | 2022-01-29 15:16 | NUR ---
DR STACY HERE COVERING FOR DR CARVALHO, INFORMED MD OF PT'S FAMILY REQUEST FOR REGULARLY SCHEDULED ANTI- ANXIETY MEDICATION. MD SPOKE WITH PT'S DAUGHTER AT BEDSIDE.
[2022-01-29 15:38] VITALS: BP_SYST 124
--- NOTE | 2022-01-29 16:15 | NUR ---
Nutrition F/U Admitting Diagnosis PNA, UTI Reviewed Pertinent Medical/Surgical Hx Medical Record RN Pt Medical History Comment: Chronic respiratory failure, s/p trach (not vent dependent), CKD, anemia, dysphagia COPD, CHF, hypothyroidism, DM. Pt also found w/ healthcare-associated bacterial PNA and UTI. 01/17 ST Swallow Evaluation - Recommended PO diet of puree/thin liquid with 1:1 feeder and full aspiration precautions. PO intake only when PMV is in place. 01/27 KUB revealed mild dilatation of the proximal small bowel without a definite point of focal obstruction; normal transit to the colon and rectum. SARS-CoV-2 Ag (Rapid) Negative 01/15 Subjective Information: RD bedside visit deferred d/t high workload. Per EMR review, TF was held since 01/26; GRV: 0 ml 01/29; abd is soft and non-distended w/ hypoactive bowel sounds; LBM x2 01/29; TF Intakes: 480 ml 01/26; Matias scale: 11 -- per Chute Man note 01/19: 1. Right Buttock: IAD with MASD. 2. Left Heel: Blanchable redness, present on admission. 3. Right Heel: Blanchable redness, present on admission; pt is under contact isolation d/t MRSA. RD spoke w/ pt's primary RN via phone call -- he reported that pt had high GRV and vomiting, which led to initiation of PPN support. Current Diet Order/Nutrition Support: Vital AF 1.2 at 50 ml/hr, Free Water Flush: 50 ml Q6h (per MD) via GT x2 days Patient/Significant Other Unable To Verbalize Education Provided Not Indicated Pertinent Medications: zofran, IV iron, reglan, protonix IV, megace, VIT C, ferrous sulfate, MVI, colace, lipitor Pertinent Labs: BUN 12 WNL, BG 97 WNL, ALB 1.3 L, AST 21 WNL, WBC 7.9 WNL, Na 134 L, TG 67 WNL Height (Feet) 5 feet Height (Inches) 2.00 inches Weight (Pounds) 131 pounds no changes since 01/15 Patient Weight 59.421 kg Body Mass Index 23.96 kg/m2 Usual Weight 147 lbs %UBW 89 %IBW 119 [place]/Adjusted Body Weight 110#/50 kg Weight Status Appropriate Usual Diet At Home Pureed Estimated Energy Expenditure (kcals/day) 7443-1713 kcals/day (30-35 kcals/kg CBW d/t infection, wound healing) Estimated Protein Required (g/day) 59-77 g/day (1-1.3 g/kg CBW d/t COPD, wounds, CKD) Estimated Fluid Required (l/day) Per mesh man/etl database developer d/t CKD/CHF Problem/Etiology/Signs/Symptoms Significant weight loss r/t unknown etiology and poor oral intake AEB 11% weight loss in 30 days. (*Ongoing) Altered nutrition-related labs R/T endocrine dysfunction AEB elevated BG lab values. (*Ongoing) Expected Outcomes/Goals Monitor nutrition support w/ goal of pt meeting greater than 75% of estimated needs, labs trending WNL, normal GI function, skin integrity, wt maintenance. Dietitian Recommendations * PPN D20%, AA8.5% at 75 ml/hr (goal rate), IL20% at 10 ml/hr daily via peripheral line Provides: 1400 kcal/day, 77 gm protein/day, 2040 ml total volume/day, and GIR: 2.1 gm CHO/kg/min Meets: 79% of lower end of estimated caloric needs and 100% of upper end of estimated protein needs * Consider trial of Vital AF 1.2 at 10 ml/hr via GT * Continue prokinetic agents for improved gut motility Follow Up High Risk: F/U in 2-3 days
--- NOTE | 2022-01-29 16:16 | NUR ---
PT RESTING COMFORTABLY IN BED, DAUGHTER AT BEDSIDE.
--- NOTE | 2022-01-29 16:30 | NUR ---
Dietitian Recommendations * PPN D20%, AA8.5% at 75 ml/hr (goal rate), IL20% at 10 ml/hr daily via peripheral line Provides: 1400 kcal/day, 77 gm protein/day, 2040 ml total volume/day, and GIR: 2.1 gm CHO/kg/min Meets: 79% of lower end of estimated caloric needs and 100% of upper end of estimated protein needs * Consider trial of Vital AF 1.2 at 10 ml/hr via GT * Continue prokinetic agents for improved gut motility LP, RD Please refer to Nutrition F/U for details.
[2022-01-29] MEDS: SOD FERRIC GLUC COMPLEX/SUC 125 MG in NS 100 ML IV SCH (17:05)
--- NOTE | 2022-01-29 19:15 | NUR ---
RT WAS CALLED TO 108 FROM FAMILY MEMBER. DID MY ASSESSMENT,GAVE ROUTINE TX AND SWITCHED TO A/C MODE SETTINGS DUE TO INCREASED WOB AND PT CLAIMED IT WAS HARDER TO BREATH AND THAT SHE WAS GETTING TIRED. PT TOLERATED A/C MODE, VITALS: HR86, SPO2 100, AND RR 20.
[2022-01-29 20:05] VITALS: BP_SYST 125
[2022-01-29] MEDS ORDERED: SODIUM CHLORIDE IV SCH ×7 (21:00)
[2022-01-29] MEDS ORDERED: [UNRECOGNIZED DRUG - OTHER] IV SCH ×7 (21:00)
[2022-01-29] MEDS ORDERED: MVI IV SCH ×7 (21:00)
[2022-01-29] MEDS ORDERED: MAGNESIUM SULFATE IV SCH ×7 (21:00)
[2022-01-29] MEDS ORDERED: TPN PERIPHERAL IV SCH ×7 (21:00)
[2022-01-29] MEDS: FAT EMULSIONS 250 ML IV SCH (21:17)
[2022-01-30] VITALS (7 sets, daily range): BP systolic 107–125
--- NOTE | 2022-01-30 | NUR ---
Rounds/O2 sat 97-100% Pt banging call button. Pt requesting suction again, informed pt that there is very little to be suctioned. O2 sat 97-100% on mechanical vent. To monitor.
[2022-01-30] MEDS: ALBUTEROL SULFATE 0.083% 2.5 MG/3 ML VIAL.NEB INH PRN (00:30)
[2022-01-30] MEDS: ALBUTEROL SULFATE 0.083% 2.5 MG/3 ML VIAL.NEB INH SCH ×3 (01:08→13:15)
--- NOTE | 2022-01-30 04:35 | NUR ---
Rounds/wound care Pt asleep, easily awakens, incontinent of stool. Pericare provided and sacral dressing changed per wound care nurse recommendations. Pt repositioned. Eng catheter draining to gravity. R. arm skin tear, weeping with yellow drainage noted, applied optifoam dressing. HOB maintained elevated. To monitor.
[2022-01-30] MEDS: D5NS 1,000 ML IV SCH ×3 (04:52→23:52)
[2022-01-30] MEDS: METOCLOPRAMIDE HCL 10 MG/2 ML VIAL IVP SCH ×3 (06:34→16:53)
[2022-01-30] MEDS: LEVOTHYROXINE SODIUM 0.125 MG TABLET PO SCH (06:35)
[2022-01-30] MEDS: clonazePAM 0.5 MG TABLET PO SCH ×3 (06:35→21:34)
--- NOTE | 2022-01-30 06:40 | NUR ---
Closing notes Pt asleep, no s/s distress noted. [facility] AM meds administered via GTube. PPN/Lipids infusing at ordered rate JOSÉ ANTONIO midline. GT connected to gravity. No N/V noted. Eng catheter draining to gravity with yellow urine. Pt repositioned. HOB maintained elevated. To endorse to AM nurse.
[2022-01-30 07:09] LABS: BASOPHILS % (AUTO) 0.6 % (0.0-2.0); EOSINOPHILS # (AUTO) 0.3 K/uL (0.0-0.4); EOSINOPHILS % (AUTO) 3.1 % (0.0-4.0); HEMATOCRIT 27.8 % (36-48); HEMOGLOBIN 9.2 g/dL (12.0-16.0); LYMPHOCYTES # (AUTO) 1.2 K/uL (1.0-5.5); LYMPHOCYTES % (AUTO) 14.2 % (20.5-51.5); MEAN CORPUSCULAR HEMOGLOBIN 31 pg (27-31); MEAN CORPUSCULAR HGB CONC 33 % (32-36); MEAN CORPUSCULAR VOLUME 94 fL (79.0-98.0); MONOCYTES # (AUTO) 0.6 K/uL (0.0-1.0); MONOCYTES % (AUTO) 7.5 % (1.7-9.3); NEUTROPHILS # (AUTO) 6.3 K/uL (1.8-7.7); NEUTROPHILS % (AUTO) 74.6 % (40.0-70.0); PLATELET COUNT (AUTO) 193 K/uL (130-430); RED BLOOD CELL COUNT(AUTO) 2.95 MIL/uL (4.2-6.2); RED CELL DISTRIBUTION WIDTH 17.4 % (9.0-15.0); WHITE BLOOD COUNT (AUTO) 8.4 K/uL (4.8-10.8)
--- NOTE | 2022-01-30 07:43 | NUR ---
rt notes 0743 Did try pt on SIMV mode again for 10 mins, pt started getting anxiety and complaint of SOB. Pt placed back to AC. will try again later. pt saturating 99%. will continue to monitor pt.
--- NOTE | 2022-01-30 08:03 | NUR ---
rt notes 0803 Pt refusing ABG draw. Educated and explained the need of ABG. Pt still refused, Pt been on AC mode since last night due to pt complaining of SOB. no respiratory distress noted. Pt saturating 97%. RN Bar aware of pt refusal.
[2022-01-30 08:19] LABS: ALANINE AMINOTRANSFERASE 29 U/L (12-78); ALBUMIN 1.3 g/dL (3.4-4.8); ANION GAP 7 (5-15); ASPARTATE AMINOTRANSFERASE 20 U/L (10-37); CALCIUM 7.7 mg/dL (8.4-11.0); CHLORIDE 104 mmol/L (98-107); CREATININE 1.14 mg/dL (0.55-1.30); GLUCOSE 105 mg/dL (70-99); PHOSPHORUS 2.5 mg/dL (2.7-4.5); POTASSIUM 4.2 mmol/L (3.5-5.1); SODIUM SERUM 135 mmol/L (136-145); TOTAL BILIRUBIN 0.3 mg/dL (0.0-1.0); UREA NITROGEN, BLOOD 12 mg/dL (8-21)
[2022-01-30] MEDS: DOCUSATE SODIUM 100 MG CAPSULE PO SCH (09:00)
[2022-01-30] MEDS: FERROUS SULFATE 325 MG TABLET.DR PO SCH (09:14)
[2022-01-30] MEDS: PANTOPRAZOLE SODIUM 40 MG/VIAL (PROTONIX) IVP SCH ×2 (09:14→21:33)
[2022-01-30] MEDS: MULTIVITAMINS TAB 1 TABLET PO SCH (09:14)
[2022-01-30] MEDS: GABAPENTIN 300 MG CAPSULE PO SCH ×2 (09:15→21:34)
[2022-01-30] MEDS: ASCORBIC ACID 500 MG TABLET PO SCH (09:15)
[2022-01-30] MEDS: MEGESTROL ACETATE 400 MG/10 ML UDC PO SCH ×2 (09:15→21:33)
[2022-01-30] MEDS: ATORVASTATIN 20 MG TABLET PO SCH (09:15)
[2022-01-30] MEDS: CARVEDILOL 25 MG TABLET (COREG) PO SCH ×2 (09:16→21:34)
[2022-01-30] MEDS: PEG 400/HYPROMELLOSE/GLYCERIN 15 ML DROPS RIGHT EYE SCH ×4 (09:17→21:35)
[2022-01-30] MEDS: BALSAM PERU/CASTOR OIL 56.7 GM OINT...G. TP SCH (09:18)
[2022-01-30] MEDS: ACETAMINOPHEN 325 MG TABLET PO PRN (11:31)
--- NOTE | 2022-01-30 11:37 | NUR ---
PT CALLED USING CALL LIGHT AND REQUESTED FOR TYLENOL. TYLENOL GIVEN.
[2022-01-30] MEDS: ALPRAZolam 0.25 MG TABLET PO PRN (13:37)
--- NOTE | 2022-01-30 16:00 | NUR ---
PT'S DAUGHTER AT BEDSIDE. PT DOING WELL.
--- NOTE | 2022-01-30 19:36 | NUR ---
PT ENDORSED TO NIGHT NURSE EDMUNDO. PT ON STABLE CONDITION. PT CONTINUED TO BE ON VENT AC SETTING. NO CHANGE IN VENT SETTINGS PER R.T.
[2022-01-30] MEDS ORDERED: TPN PERIPHERAL IV SCH ×8 (21:00)
[2022-01-30] MEDS ORDERED: [UNRECOGNIZED DRUG - OTHER] IV SCH ×8 (21:00)
[2022-01-30] MEDS ORDERED: K PHOS IV SCH ×8 (21:00)
[2022-01-30] MEDS ORDERED: SODIUM CHLORIDE IV SCH ×8 (21:00)
[2022-01-30] MEDS: FAT EMULSIONS 250 ML IV SCH (21:42)
--- NOTE | 2022-01-30 21:50 | NUR ---
TPN/Lipids Pt alert, awake, no s/s distress noted. TPN administered at 50cc/hr and Lipids at 10cc/hr JOSÉ ANTONIO midline. Meds administered via GT. HOB maintained elevated. To monitor.
--- NOTE | 2022-01-30 21:58 | NUR ---
PT RECEIVED ON ORDERED VENT SETTINGS OF 14,400,+5 AND 35%. NO S/S OF RD WERE NOTED AND PT IS RESTING COMFORTABLY. WILL MONITOR THROUGHOUT THE NIGHT.
[2022-01-31 00:26] VITALS: BP_SYST 97
[2022-01-31] MEDS: ALBUTEROL SULFATE 0.083% 2.5 MG/3 ML VIAL.NEB INH SCH ×3 (01:39→19:49)
[2022-01-31] MEDS: ACETAMINOPHEN 325 MG TABLET PO PRN (01:50)
--- NOTE | 2022-01-31 01:50 | NUR ---
Pain Pt requested for pain med. Pt medicated with Tylenol 2 tabs as needed. Pt refused midline dressing to be changed at this time. Call light within reach. Will continue to monitor.
[2022-01-31] MEDS: METOCLOPRAMIDE HCL 10 MG/2 ML VIAL IVP SCH ×3 (06:31→18:09)
[2022-01-31] MEDS: clonazePAM 0.5 MG TABLET PO SCH ×3 (06:31→21:59)
[2022-01-31] MEDS: LEVOTHYROXINE SODIUM 0.125 MG TABLET PO SCH (06:31)
--- NOTE | 2022-01-31 06:45 | NUR ---
Closing notes Pt asleep, easily awakens, no s/s distress noted. [facility] AM meds administered via GTube. PPN/Lipids infusing at ordered rate JOSÉ ANTONIO midline. GT connected to gravity. Eng catheter draining to gravity with yellow urine. Pt refused to have dressing to midline changed at this time. Pt would slap my arm. HOB maintained elevated. Will endorse to AM nurse.
[2022-01-31 08:49] LABS: ALANINE AMINOTRANSFERASE 21 U/L (12-78); ALBUMIN 1.3 g/dL (3.4-4.8); ANION GAP 7 (5-15); ASPARTATE AMINOTRANSFERASE 13 U/L (10-37); CALCIUM 8.2 mg/dL (8.4-11.0); CHLORIDE 105 mmol/L (98-107); CREATININE 1.01 mg/dL (0.55-1.30); GLUCOSE 104 mg/dL (70-99); PHOSPHORUS 2.2 mg/dL (2.7-4.5); POTASSIUM 3.7 mmol/L (3.5-5.1); SODIUM SERUM 135 mmol/L (136-145); UREA NITROGEN, BLOOD 11 mg/dL (8-21)
[2022-01-31 08:57] LABS: TOTAL BILIRUBIN 0.2 mg/dL (0.0-1.0)
[2022-01-31] MEDS: ATORVASTATIN 20 MG TABLET PO SCH (09:00)
[2022-01-31] MEDS: DOCUSATE SODIUM 100 MG CAPSULE PO SCH (09:00)
[2022-01-31] MEDS: PEG 400/HYPROMELLOSE/GLYCERIN 15 ML DROPS RIGHT EYE SCH ×4 (09:00→21:00)
[2022-01-31] MEDS: PANTOPRAZOLE SODIUM 40 MG/VIAL (PROTONIX) IVP SCH ×2 (09:00→22:00)
[2022-01-31] MEDS: MEGESTROL ACETATE 400 MG/10 ML UDC PO SCH ×2 (09:00→21:59)
[2022-01-31] MEDS: GABAPENTIN 300 MG CAPSULE PO SCH ×2 (09:00→21:59)
[2022-01-31] MEDS: CARVEDILOL 25 MG TABLET (COREG) PO SCH ×2 (09:00→22:51)
[2022-01-31] MEDS: MULTIVITAMINS TAB 1 TABLET PO SCH (09:00)
[2022-01-31] MEDS: ASCORBIC ACID 500 MG TABLET PO SCH (09:00)
[2022-01-31] MEDS: BALSAM PERU/CASTOR OIL 56.7 GM OINT...G. TP SCH (09:00)
[2022-01-31] MEDS: FERROUS SULFATE 325 MG TABLET.DR PO SCH (09:00)
--- NOTE | 2022-01-31 09:02 | NUR ---
RT NOTE: 901 Patient states that she can't breathe and that she feels hot. Heart rate was 99-101 bpm and resp rate was in the low 30s. Patient placed back on AC mode and observed for 5 mins. Patient feels a little better after. Will try SIMV again later today. Addendum: 01/31/22 at 09 by Lynn Reynolds RT Amended: Links added.
[2022-01-31 11:26] VITALS: BP_SYST 130
[2022-01-31 15:00] VITALS: BP_SYST 121
[2022-01-31] MEDS: D5NS 1,000 ML IV SCH (19:03)
[2022-01-31 20:00] VITALS: BP_SYST 120
[2022-01-31] MEDS ORDERED: POTASSIUM ACETATE IV SCH ×9 (21:00)
[2022-01-31] MEDS ORDERED: [UNRECOGNIZED DRUG - OTHER] IV SCH ×9 (21:00)
[2022-01-31] MEDS ORDERED: SODIUM CHLORIDE IV SCH ×9 (21:00)
[2022-01-31] MEDS ORDERED: TPN PERIPHERAL IV SCH ×9 (21:00)
[2022-01-31] MEDS: CEFEPIME 2 GM in D5W 100 ML IV SCH (21:59)
[2022-01-31] MEDS: FAT EMULSIONS 250 ML IV SCH (22:01)
[2022-02-01 00:50] VITALS: BP_SYST 102
[2022-02-01] MEDS: ACETAMINOPHEN 325 MG TABLET PO PRN (01:20)
[2022-02-01] MEDS: ALBUTEROL SULFATE 0.083% 2.5 MG/3 ML VIAL.NEB INH SCH ×3 (03:34→13:59)
[2022-02-01 06:37] LABS: BASOPHILS # (AUTO) 0.1 K/uL (0.0-0.2); BASOPHILS % (AUTO) 0.5 % (0.0-2.0); EOSINOPHILS # (AUTO) 0.3 K/uL (0.0-0.4); EOSINOPHILS % (AUTO) 3.4 % (0.0-4.0); HEMATOCRIT 24.3 % (36-48); HEMOGLOBIN 7.9 g/dL (12.0-16.0); LYMPHOCYTES # (AUTO) 1.4 K/uL (1.0-5.5); LYMPHOCYTES % (AUTO) 13.7 % (20.5-51.5); MEAN CORPUSCULAR HEMOGLOBIN 31 pg (27-31); MEAN CORPUSCULAR HGB CONC 33 % (32-36); MEAN CORPUSCULAR VOLUME 95 fL (79.0-98.0); MONOCYTES # (AUTO) 0.9 K/uL (0.0-1.0); MONOCYTES % (AUTO) 9.4 % (1.7-9.3); NEUTROPHILS # (AUTO) 7.3 K/uL (1.8-7.7); PLATELET COUNT (AUTO) 166 K/uL (130-430); RED BLOOD CELL COUNT(AUTO) 2.57 MIL/uL (4.2-6.2); RED CELL DISTRIBUTION WIDTH 17.5 % (9.0-15.0)
[2022-02-01] MEDS: LEVOTHYROXINE SODIUM 0.125 MG TABLET PO SCH (07:18)
[2022-02-01] MEDS: METOCLOPRAMIDE HCL 10 MG/2 ML VIAL IVP SCH ×3 (07:18→17:00)
[2022-02-01] MEDS: clonazePAM 0.5 MG TABLET PO SCH ×3 (07:19→22:05)
[2022-02-01 07:36] LABS: ALANINE AMINOTRANSFERASE 14 U/L (12-78); ALBUMIN 1.3 g/dL (3.4-4.8); ANION GAP 6 (5-15); ASPARTATE AMINOTRANSFERASE 11 U/L (10-37); CALCIUM 7.6 mg/dL (8.4-11.0); CHLORIDE 107 mmol/L (98-107); CREATININE 0.98 mg/dL (0.55-1.30); GLUCOSE 112 mg/dL (70-99); PHOSPHORUS 2.2 mg/dL (2.7-4.5); POTASSIUM 3.5 mmol/L (3.5-5.1); SODIUM SERUM 136 mmol/L (136-145); UREA NITROGEN, BLOOD 14 mg/dL (8-21)
[2022-02-01 08:05] LABS: TOTAL BILIRUBIN < 0.1 mg/dL (0.0-1.0)
[2022-02-01] MEDS: D5NS 1,000 ML IV SCH ×2 (08:09→22:53)
[2022-02-01] MEDS: CEFEPIME 2 GM in D5W 100 ML IV SCH ×2 (09:00→22:04)
[2022-02-01] MEDS: MULTIVITAMINS TAB 1 TABLET PO SCH (09:17)
[2022-02-01] MEDS: MEGESTROL ACETATE 400 MG/10 ML UDC PO SCH ×2 (09:17→22:05)
[2022-02-01] MEDS: DOCUSATE SODIUM 100 MG CAPSULE PO SCH (09:17)
[2022-02-01] MEDS: GABAPENTIN 300 MG CAPSULE PO SCH ×2 (09:17→22:05)
[2022-02-01] MEDS: FERROUS SULFATE 325 MG TABLET.DR PO SCH (09:18)
[2022-02-01] MEDS: DIPHENHYDRAMINE HCL 50 MG CAPSULE PO PRN ×2 (09:18→15:22)
[2022-02-01] MEDS: CARVEDILOL 25 MG TABLET (COREG) PO SCH ×2 (09:19→22:07)
[2022-02-01] MEDS: ATORVASTATIN 20 MG TABLET PO SCH (09:20)
[2022-02-01] MEDS: ASCORBIC ACID 500 MG TABLET PO SCH (09:20)
[2022-02-01] MEDS: PANTOPRAZOLE SODIUM 40 MG/VIAL (PROTONIX) IVP SCH ×2 (09:20→22:04)
[2022-02-01] MEDS: PEG 400/HYPROMELLOSE/GLYCERIN 15 ML DROPS RIGHT EYE SCH ×4 (09:22→22:52)
[2022-02-01] MEDS: BALSAM PERU/CASTOR OIL 56.7 GM OINT...G. TP SCH (09:22)
[2022-02-01 09:26] VITALS: BP_SYST 120
[2022-02-01 13:00] VITALS: BP_SYST 118
--- NOTE | 2022-02-01 13:50 | NUR ---
Dietitian Recommendations * PPN D20%, AA8.5% at 75 ml/hr (goal rate), IL20% at 10 ml/hr daily via peripheral line Provides: 1400 kcal/day, 77 gm protein/day, 2040 ml total volume/day, and GIR: 2.1 gm CHO/kg/min Meets: 79% of lower end of estimated caloric needs and 100% of upper end of estimated protein needs * Recommend Vital AF 1.2 at 10 ml/hr via GT (peptide-based formula for easier digestion and tolerance), FWF 50 ml Q6H * Continue prokinetic agents for improved gut motility Please refer to Nutrition F/U for details.
--- NOTE | 2022-02-01 13:50 | NUR ---
Nutrition F/U Admitting Diagnosis PNA, UTI Reviewed Pertinent Medical/Surgical Hx Medical Record RN Pt Medical History Comment: Chronic respiratory failure, s/p trach (not vent dependent), CKD, anemia, dysphagia COPD, CHF, hypothyroidism, DM. Pt also found w/ healthcare-associated bacterial PNA and UTI. 01/17 ST Swallow Evaluation - Recommended PO diet of puree/thin liquid with 1:1 feeder and full aspiration precautions. PO intake only when PMV is in place. 01/27 KUB revealed mild dilatation of the proximal small bowel without a definite point of focal obstruction; normal transit to the colon and rectum. Per Analysis Or Research Safety Inspector note 01/19: 1. Right Buttock: IAD with MASD. 2. Left Heel: Blanchable redness, present on admission. 3. Right Heel: Blanchable redness, present on admission SARS-CoV-2 Ag (Rapid) Negative 01/15 Subjective Information: RD rounded to pts bedside. Pts RN and daughter present. Per RN, plan to resume TF at low rate today and hold for GRV >150 ml. Per daughter, she is unsure what interventions she wants to continue/pursue d/t pts poor quality of life from current condition. She is hesitant to have more procedures done such as GJ and possible central line placement. Per physician notes, pt not tolerating GT feeding, pt has a large ventral hernia and may need GT converted to GJ once gastrocutaneous fistula matures. Per EMR review, continues vent to trach; Matias score 13, L. leg scab, erythema to L. and R. groin and posterior thigh, R. arm skin tear, erythema to R. buttocks; 01/30: abd. distended w/ hypoactive bowel sounds; last BM 01/30 x1; PT on PPN and IVF currently providing 1323 kcals/day, 56 g protein/day, 2560 ml total volume, meeting 74% of lower end of estimated caloric needs and 95% of lower end of estimated protein needs. RD called pts primary RN via telephone to relay recommendations. Current Diet Order/Nutrition Support: Glucerna 1.2 at 10 ml/hr FWF 50 ml Q6H, hold TF for GRV 400 ml x 0 days and PPN: D20, AA8.5 at 55 ml/hr, 20%IL 250 ml at ml/hr x4 days Patient/Significant Other Unable To Verbalize Education Provided Not Indicated Pertinent Medications: zofran, reglan, protonix IV, megace, Synthroid, VIT C, ferrous sulfate, MVI, colace, Lipitor, D5NS at 75 ml/hr x 14 hr (provides 170 kcals), MOM Pertinent Labs: H/H 7.9 L/24.3 L, BG 112 H, Ca 7.6 L, P 2.2 L, Alb 1.3 L, 01/29: TG 67 Height (Feet) 5 feet Height (Inches) 2.00 inches Weight (Pounds) 131 pounds no changes since 01/15 Patient Weight 59.421 kg Body Mass Index 23.96 kg/m2 Usual Weight 147 lbs %UBW 89 %IBW 119 [place]/Adjusted Body Weight 110#/50 kg Weight Status Appropriate Usual Diet At Home Pureed Estimated Energy Expenditure (kcals/day) 5077-0102 kcals/day (30-35 kcals/kg CBW d/t infection, wound healing) Estimated Protein Required (g/day) 59-77 g/day (1-1.3 g/kg CBW d/t COPD, wounds, CKD) Estimated Fluid Required (l/day) Per facilities operations technician/payroll coordinator d/t CKD/CHF Problem/Etiology/Signs/Symptoms Significant weight loss r/t unknown etiology and poor oral intake AEB 11% weight loss in 30 days. (*Ongoing) Altered nutrition-related labs R/T endocrine dysfunction AEB elevated BG lab values. (*Ongoing) Expected Outcomes/Goals Monitor nutrition support w/ goal of pt meeting greater than 75% of estimated needs, labs trending WNL, normal GI function, skin integrity, wt maintenance. Dietitian Recommendations * PPN D20%, AA8.5% at 75 ml/hr (goal rate), IL20% at 10 ml/hr daily via peripheral line Provides: 1400 kcal/day, 77 gm protein/day, 2040 ml total volume/day, and GIR: 2.1 gm CHO/kg/min Meets: 79% of lower end of estimated caloric needs and 100% of upper end of estimated protein needs * Recommend Vital AF 1.2 at 10 ml/hr via GT (peptide-based formula for easier digestion and tolerance), FWF 50 ml Q6H * Continue prokinetic agents for improved gut motility Follow Up High Risk: F/U in 2-3 days
[2022-02-01 15:14] VITALS: BP_SYST 126
[2022-02-01] MEDS ORDERED: [UNRECOGNIZED DRUG - OTHER] IV SCH ×9 (21:00)
[2022-02-01] MEDS: FAT EMULSIONS 250 ML IV SCH (21:00)
[2022-02-01] MEDS ORDERED: TPN PERIPHERAL IV SCH ×9 (21:00)
[2022-02-01] MEDS ORDERED: SODIUM CHLORIDE IV SCH ×9 (21:00)
[2022-02-01] MEDS ORDERED: POTASSIUM ACETATE IV SCH ×9 (21:00)
[2022-02-02 00:10] VITALS: BP_SYST 138
[2022-02-02] MEDS: ALBUTEROL SULFATE 0.083% 2.5 MG/3 ML VIAL.NEB INH SCH ×4 (01:13→20:26)
[2022-02-02] MEDS: METOCLOPRAMIDE HCL 10 MG/2 ML VIAL IVP SCH ×3 (05:54→16:51)
[2022-02-02] MEDS: clonazePAM 0.5 MG TABLET PO SCH ×3 (05:54→23:36)
[2022-02-02] MEDS: LEVOTHYROXINE SODIUM 0.125 MG TABLET PO SCH (05:55)
[2022-02-02 07:17] LABS: ALANINE AMINOTRANSFERASE 19 U/L (12-78); ALBUMIN 1.4 g/dL (3.4-4.8); ANION GAP 10 (5-15); ASPARTATE AMINOTRANSFERASE 15 U/L (10-37); CALCIUM 7.8 mg/dL (8.4-11.0); CHLORIDE 107 mmol/L (98-107); CREATININE 1.13 mg/dL (0.55-1.30); GLUCOSE 144 mg/dL (70-99); PHOSPHORUS 2.2 mg/dL (2.7-4.5); POTASSIUM 4.1 mmol/L (3.5-5.1); SODIUM SERUM 137 mmol/L (136-145); UREA NITROGEN, BLOOD 21 mg/dL (8-21)
--- NOTE | 2022-02-02 07:25 | NUR ---
END OF SHIFT REPORT TO INCOMING RN. PT HAD CHEST XRAY THIS AM. RT EXPLAINED CHANGES IN VENT SETTINGS AC FROM 14 TO 12, FIO2 FROM 35% TO 50%. TV REMAINS AT 400, PEEP REMAINS AT 5. END OF SHIFT REPORT, PT CLEANED UP, WOUND CARE PROVIDED AT SACRUM AND BUTTOCKS. ALL DUE MEDS GIVEN, NO ASE NOTED. FLEY CATH CARE GIVEN DRAINING YELLOW URINE VIA GRAVITY. PT REPOSITIONED Q2HRS ORDERED.. TUBE FEEDING RUNNING @10ML/HR, TPN RUNNING. UNABLE TO HANG ANOTHER BAG OF LIPIDS DUE TO NOT BEING AVAILABLE. ENDORSED TO INCOMING RN.
--- NOTE | 2022-02-02 07:30 | NUR ---
Opening Received report on pt. Pt drowsy, arousable, in no signs of pain or distress. Trach to vent FiO2 50%. Pt with low-grade fever 100.4. Pt with hiatal and ventral hernia receiving tube feeding 10 ml/hr as well as PPN and lipids. Eng in place draining urine to gravity.
[2022-02-02 08:00] VITALS: BP_SYST 103
[2022-02-02 08:30] LABS: TOTAL BILIRUBIN 0.1 mg/dL (0.0-1.0)
[2022-02-02] MEDS: CARVEDILOL 25 MG TABLET (COREG) PO SCH ×2 (09:00→21:00)
[2022-02-02 09:05] LABS: TRIGLYCERIDES 38 mg/dL (30-150)
[2022-02-02] MEDS: CEFEPIME 2 GM in D5W 100 ML IV SCH (09:15)
[2022-02-02] MEDS: PANTOPRAZOLE SODIUM 40 MG/VIAL (PROTONIX) IVP SCH ×2 (09:15→21:52)
[2022-02-02] MEDS: MEGESTROL ACETATE 400 MG/10 ML UDC PO SCH ×2 (09:15→21:55)
[2022-02-02] MEDS: ASCORBIC ACID 500 MG TABLET PO SCH (09:16)
[2022-02-02] MEDS: DOCUSATE SODIUM 100 MG CAPSULE PO SCH (09:16)
[2022-02-02] MEDS: FERROUS SULFATE 325 MG TABLET.DR PO SCH (09:16)
[2022-02-02] MEDS: ATORVASTATIN 20 MG TABLET PO SCH (09:16)
[2022-02-02] MEDS: MULTIVITAMINS TAB 1 TABLET PO SCH (09:16)
[2022-02-02] MEDS: PEG 400/HYPROMELLOSE/GLYCERIN 15 ML DROPS RIGHT EYE SCH ×4 (09:19→21:58)
[2022-02-02] MEDS: BALSAM PERU/CASTOR OIL 56.7 GM OINT...G. TP SCH (09:19)
[2022-02-02] MEDS: D5NS 1,000 ML IV SCH (09:24)
[2022-02-02] MEDS: GABAPENTIN 300 MG CAPSULE PO SCH ×2 (09:24→21:53)
--- NOTE | 2022-02-02 10:26 | NUR ---
PAGED PAGED WILLIE ALMODOVAR AT [phone] SPOKE WITH KATELIN.
[2022-02-02 11:38] VITALS: BP_SYST 111
[2022-02-02] MEDS: ACETAMINOPHEN 325 MG TABLET PO PRN ×2 (11:43→23:36)
--- NOTE | 2022-02-02 13:00 | NUR ---
Updates given to pt's daughter at bedside.
--- NOTE | 2022-02-02 14:03 | NUR ---
1211 TRIED PT ON SIMV TRIAL. SIMV10 PS12. PT CONTINUES TO BE SOB. PLACED BACK TO AC 1216. Addendum: 02/02/22 at 1406 by Nichelle Mensah RT Amended: Links added.
--- NOTE | 2022-02-02 15:57 | NUR ---
Systems Design Engineer BELLA Salomon responded to a request for social work support from patient's daughter Adriane Humphreys. BELLA Salomon met with patient's daughter at bedside. Adriane requested to meet outside of patient's room. FINISHING ROOM OPERATOR completed introductions, and provided Adriane with a business card. Adriane wanted to discuss/explore options for next steps related to hospice or palliative care. FINISHING ROOM OPERATOR provided a brief explanation of hospice and palliative care. Adriane shared she asked patient if she wanted to have the "feeding tube surgery" Monday, according to Xiomy patient responded No. Xiomy shared she asked patient if "she was dying", according to Xiomy patient responded yes. FINISHING ROOM OPERATOR utilized empathetic and reflective listening techniques to reflect on Xiomy's concerns and feelings and normalized her feelings and concerns. Adriane shared she resides in [place], but will be staying local while patient is receiving care. FINISHING ROOM OPERATOR encouraged Xiomy to pose her concerns and questions to patient's physicians and nurse. FINISHING ROOM OPERATOR informed Xiomy that FINISHING ROOM OPERATOR will inform patient's REMEDIOS Lawson, and again encouraged her to voice this questions and concerns to Doctor as they would need to evaluate patient for level of care. FINISHING ROOM OPERATOR will continue to be available as needed. Addendum: 02/02/22 at 1633 by Umm BLANCO BELLA Salomon contacted REMEDIOS Lawson to provide her an update on patient's daughter Adriane's wishes for care as well as her concerns and questions. BELLA informed Lulu that Adriane was encouraged to ask and discuss her wishes and concerns with the patient's doctor.
[2022-02-02 17:03] VITALS: BP_SYST 120
--- NOTE | 2022-02-02 19:30 | NUR ---
Closing Pt in no signs of distress and indicated no pain. Receiving tube feeding and PPN lipids. Eng draining urine to gravity. Endorsed plan of care to oncoming RN.
[2022-02-02 20:00] VITALS: BP_SYST 92
[2022-02-02 20:30] VITALS: BP_SYST 102
--- NOTE | 2022-02-02 20:30 | NUR ---
Dr. Sotomayor Informed Dr. Sotomayor of patient's ABG from earlier today and current vitals - temp 100.5, HR 119, RR 28, BP 92/55, 98% on vent. Received edit to order for PRN Tylenol to include for fever. No other new orders. Dr. Sotomayor requested to follow up with Dr. Devries and with Dr. Garcia about ABG.
--- NOTE | 2022-02-02 20:38 | NUR ---
Karie Mccracken s/w Carol
--- NOTE | 2022-02-02 20:45 | NUR ---
Dr. Radha Garcia present on unit and was informed of patient's ABG from earlier today as well as current vitals and vent settings.
[2022-02-02] MEDS ORDERED: [UNRECOGNIZED DRUG - OTHER] IV SCH ×9 (21:00)
[2022-02-02] MEDS ORDERED: TPN PERIPHERAL IV SCH ×9 (21:00)
[2022-02-02] MEDS ORDERED: SODIUM CHLORIDE IV SCH ×9 (21:00)
[2022-02-02] MEDS ORDERED: POTASSIUM ACETATE IV SCH ×9 (21:00)
[2022-02-02] MEDS: FAT EMULSIONS 250 ML IV SCH (21:07)
[2022-02-02] MEDS: CEFTAROLINE FOSAMIL ACETATE 600 MG in NS 250 ML IV SCH (21:57)
--- NOTE | 2022-02-02 23:30 | NUR ---
Dr. Mccracken Spoke with Dr. Mccracken and informed him of patient's vitals and current status. Antibiotic infusing as previously ordered. No new orders at this time.
--- NOTE | 2022-02-02 23:45 | NUR ---
Wound Care/Photos Wound care done, photos taken and filed in chart.
[2022-02-03] VITALS (7 sets, daily range): BP systolic 80–107
[2022-02-03] MEDS: ALBUTEROL SULFATE 0.083% 2.5 MG/3 ML VIAL.NEB INH SCH ×4 (01:11→18:00)
[2022-02-03] MEDS: D5NS 1,000 ML IV SCH ×2 (02:21→13:29)
--- NOTE | 2022-02-03 04:30 | NUR ---
Midline Out/New 20G PIV Patient's midline slipped out, unable to be reinserted. New 20G placed to right upper arm after three attempts. TPN and lipids infusing to PIV.
[2022-02-03] MEDS: clonazePAM 0.5 MG TABLET PO SCH ×2 (06:00→15:43)
--- NOTE | 2022-02-03 06:52 | NUR ---
ATTENDING MD DR CARVALHO WAS PAGED, RE: TO INFORM THAT MID/PIC LINE CAME OUT.
[2022-02-03] MEDS: LEVOTHYROXINE SODIUM 0.125 MG TABLET PO SCH (06:57)
[2022-02-03] MEDS: METOCLOPRAMIDE HCL 10 MG/2 ML VIAL IVP SCH ×3 (06:57→17:06)
--- NOTE | 2022-02-03 07:30 | NUR ---
Closing Patient tachypneic with trach to vent, settings AC 12, TV 400, FiO2 45% titrated by RT throughout night, PEEP 5. Latest vital signs BP 91/43, HR 120, 97% on vent, RR 36, temp 98.6. Blood sugar 92 this morning. Midline came out this morning and new 20G IV was placed to right upper arm. Paged Dr. Jaime. Day shift nurse aware of patient status. Wound care done and photos taken. Eng patent draining yellow urine. TPN and lipids running as ordered. IV fluids infused until midline came out. Tube feeding running as ordered, FWF given, 5-10mL residual. Fall, safety, and aspiration precautions maintained.
--- NOTE | 2022-02-03 08:00 | NUR ---
Initial Notes Patient is awake and non verbal. Is able to nod to simple questions. No midline/ picc line. IV line in JOSÉ ANTONIO, running TPN only at this time. Will call MD for orders. Vital signs obtain, pt is afebrile. Safety precautions in place, call light with in reach. Bed alarm on.
[2022-02-03] MEDS: CEFTAROLINE FOSAMIL ACETATE 600 MG in NS 250 ML IV SCH ×2 (08:49→23:30)
[2022-02-03] MEDS: PANTOPRAZOLE SODIUM 40 MG/VIAL (PROTONIX) IVP SCH (08:50)
[2022-02-03] MEDS: MULTIVITAMINS TAB 1 TABLET PO SCH (09:06)
[2022-02-03] MEDS: MEGESTROL ACETATE 400 MG/10 ML UDC PO SCH (09:06)
[2022-02-03] MEDS: ATORVASTATIN 20 MG TABLET PO SCH (09:07)
[2022-02-03] MEDS: FERROUS SULFATE 325 MG TABLET.DR PO SCH (09:07)
[2022-02-03] MEDS: CARVEDILOL 25 MG TABLET (COREG) PO SCH (09:07)
[2022-02-03] MEDS: GABAPENTIN 300 MG CAPSULE PO SCH (09:08)
[2022-02-03] MEDS: DOCUSATE SODIUM 100 MG CAPSULE PO SCH (09:08)
[2022-02-03] MEDS: ASCORBIC ACID 500 MG TABLET PO SCH (09:08)
[2022-02-03] MEDS: BALSAM PERU/CASTOR OIL 56.7 GM OINT...G. TP SCH (09:09)
[2022-02-03] MEDS: PEG 400/HYPROMELLOSE/GLYCERIN 15 ML DROPS RIGHT EYE SCH ×3 (09:10→17:05)
--- NOTE | 2022-02-03 09:20 | NUR ---
Consent Called and spoke to daughter Adriane regarding PICC line. Daughter consented.
[2022-02-03 09:28] LABS: ALANINE AMINOTRANSFERASE 16 U/L (12-78); ALBUMIN 1.1 g/dL (3.4-4.8); ANION GAP 14 (5-15); ASPARTATE AMINOTRANSFERASE 26 U/L (10-37); CALCIUM 7.5 mg/dL (8.4-11.0); CHLORIDE 105 mmol/L (98-107); GLUCOSE 94 mg/dL (70-99); PHOSPHORUS 2.8 mg/dL (2.7-4.5); SODIUM SERUM 134 mmol/L (136-145); UREA NITROGEN, BLOOD 25 mg/dL (8-21)
--- NOTE | 2022-02-03 09:30 | NUR ---
MD rounds Seen by Dr. Vasquez. Patient does not have residual well on feeding. MD ordered to increase feeding to 20 ml/ hr. Increased feeding and will monitor.
[2022-02-03 09:32] LABS: TOTAL BILIRUBIN < 0.1 mg/dL (0.0-1.0)
--- NOTE | 2022-02-03 09:44 | NUR ---
rt notes 0944 Titrated fio2 to 40%, pt saturating 98%. will continue to monitor pt.
[2022-02-03 10:17] LABS: INR 1.1 (0.8-1.2); PROTHROMBIN TIME 11.4 SECS (9.5-12.5)
--- NOTE | 2022-02-03 12:46 | NUR ---
CONSULTATION PAGED REASON FOR CONSULTATION:HIATAL HERNIA W/GASTRIC FUNDUS ABOVE THE DIAPJRAGM WAS CONSULT CALLED?Y PERSON WHO WAS NOTIFIED:EXCHANGE CONSULTING PHYSICIAN:ROCIO KEVIN AUTOMOTIVE PRODUCT SPECIALIST SPECIALTY:THORACIC SURGEON AUTOMOTIVE PRODUCT SPECIALIST PHONE NUMBER:[phone] REQUESTING PHYSICIAN:JOSEFA NIETO
--- NOTE | 2022-02-03 14:59 | NUR ---
CM: Discussed dcp with dtr/Adriane Humphreys at bedside: she requested pt to be DNR " no heroic measures, wants pt to be comfortable". Informed that the pt may transfer back to [facility] once stable to transport. She agreed with plan to transfer back to the [facility] if stable and per dr. Sotomayor order. She also expressed her wish that the last stop is to be at this hospital , did not want pt to transfer thinking that the pt is not doing well and does not have much time left.
--- NOTE | 2022-02-03 15:06 | NUR ---
DR ADORNO SW WITH MD. MOYER REVIEWED THE CT AP AND DUE TO PATIENT CONDITION, PATIENT IS NOT A CANDIDATE FOR SURGERY
--- NOTE | 2022-02-03 15:10 | NUR ---
Notes Family wants to change code status to DNR. Spoke to Dr. Farfan and made aware.
--- NOTE | 2022-02-03 15:13 | NUR ---
Check residual for GT feeding and its only 5cc. Continue feeding at 20cc/hr at this time.
[2022-02-03] MEDS ORDERED: ALPRAZolam 0.25 MG TABLET PO ONE (15:15)
--- NOTE | 2022-02-03 16:27 | NUR ---
Notes New PICC line was placed on the left upper arm.
--- NOTE | 2022-02-03 18:50 | NUR ---
Closing Notes Patient repositioned, HOB elevated. No respiratory distress or facial grimace noted. Safety precautions in place and call light within reach.
[2022-02-03] MEDS ORDERED: SODIUM ACETATE IV SCH ×9 (21:00)
[2022-02-03] MEDS ORDERED: POTASSIUM CHLORIDE IV SCH ×9 (21:00)
[2022-02-03] MEDS ORDERED: TPN PERIPHERAL IV SCH ×9 (21:00)
[2022-02-03] MEDS ORDERED: [UNRECOGNIZED DRUG - OTHER] IV SCH ×9 (21:00)
--- NOTE | 2022-02-03 23:25 | NUR ---
Dr. Sotomayor Informed Dr. Sotomayor of patient's BP 80/39. Received order to change D5NS rate to 100mL/hr and for 25% albumin 100mL bolus x2 with readback and confirmation.
[2022-02-03] MEDS ORDERED: ALBUMIN HUMAN 25% 100 ML IV ONE (23:30)
[2022-02-04] VITALS (7 sets, daily range): BP systolic 82–109
[2022-02-04] MEDS ORDERED: ALBUMIN HUMAN 25% 100 ML IV ONE ×2 (00:30→23:00)
[2022-02-04] MEDS: PANTOPRAZOLE SODIUM 40 MG/VIAL (PROTONIX) IVP SCH ×2 (00:35→09:01)
[2022-02-04] MEDS: GABAPENTIN 300 MG CAPSULE PO SCH ×2 (00:35→08:57)
[2022-02-04] MEDS: CARVEDILOL 25 MG TABLET (COREG) PO SCH ×3 (00:35→21:00)
[2022-02-04] MEDS: ALPRAZolam 0.25 MG TABLET PO SCH ×3 (00:35→21:00)
[2022-02-04] MEDS: MEGESTROL ACETATE 400 MG/10 ML UDC PO SCH ×2 (00:35→08:56)
[2022-02-04] MEDS: clonazePAM 0.5 MG TABLET PO SCH ×4 (00:36→22:00)
[2022-02-04] MEDS: CEFTAROLINE FOSAMIL ACETATE 600 MG in NS 250 ML IV SCH ×2 (00:37→09:01)
[2022-02-04] MEDS: D5NS 1,000 ML IV SCH ×3 (00:38→21:58)
[2022-02-04] MEDS: PEG 400/HYPROMELLOSE/GLYCERIN 15 ML DROPS RIGHT EYE SCH ×5 (00:39→21:00)
[2022-02-04] MEDS: FAT EMULSIONS 250 ML IV SCH (01:15)
[2022-02-04] MEDS: ALBUTEROL SULFATE 0.083% 2.5 MG/3 ML VIAL.NEB INH SCH ×3 (06:00→19:49)
[2022-02-04] MEDS: LEVOTHYROXINE SODIUM 0.125 MG TABLET PO SCH (06:42)
[2022-02-04] MEDS: METOCLOPRAMIDE HCL 10 MG/2 ML VIAL IVP SCH ×3 (06:42→17:39)
[2022-02-04 07:27] LABS: BASOPHILS % (AUTO) 0.3 % (0.0-2.0); EOSINOPHILS # (AUTO) 0.5 K/uL (0.0-0.4); EOSINOPHILS % (AUTO) 2.7 % (0.0-4.0); HEMATOCRIT 22.2 % (36-48); LYMPHOCYTES # (AUTO) 0.9 K/uL (1.0-5.5); LYMPHOCYTES % (AUTO) 4.9 % (20.5-51.5); MEAN CORPUSCULAR HEMOGLOBIN 30 pg (27-31); MEAN CORPUSCULAR HGB CONC 32 % (32-36); MEAN CORPUSCULAR VOLUME 96 fL (79.0-98.0); MONOCYTES # (AUTO) 0.8 K/uL (0.0-1.0); MONOCYTES % (AUTO) 4.6 % (1.7-9.3); NEUTROPHILS # (AUTO) 15.8 K/uL (1.8-7.7); NEUTROPHILS % (AUTO) 87.5 % (40.0-70.0); PLATELET COUNT (AUTO) 114 K/uL (130-430); RED BLOOD CELL COUNT(AUTO) 2.31 MIL/uL (4.2-6.2); RED CELL DISTRIBUTION WIDTH 19.3 % (9.0-15.0)
--- NOTE | 2022-02-04 07:30 | NUR ---
Closing Patient's BP decreased throughout night - lowest 82/40, highest 99/50 after 100mL albumin bolus x2. D5NS increased from 75mL/hr to 100mL/hr as ordered. No fever. HR 100s-110s. Patient on trach to vent with AC 12, FIO2 40%, TV 400, PEEP 5. Oral and trach suction provided. Left upper arm PICC patent with dressing CDI, 20G PIV to right upper arm patent and saline locked. TPN and lipids infusing per order. Tube feeding to GT running at 20mL/hr with 5-10 mL residual. Bilateral arms edematous, positioned for fluid return. Right arm with weeping edema. 75mL urine output from Eng throughout shift. 1 bowel movement. Dressing to sacrum clean, dry, and intact. Not changed this morning because patient was not tolerating the position while being cleaned. Fall, safety, and aspiration precautions maintained.
[2022-02-04 07:39] LABS: ALANINE AMINOTRANSFERASE 52 U/L (12-78); ANION GAP 10 (5-15); ASPARTATE AMINOTRANSFERASE 77 U/L (10-37); CALCIUM 7.6 mg/dL (8.4-11.0); CHLORIDE 105 mmol/L (98-107); CREATININE 1.99 mg/dL (0.55-1.30); GLUCOSE 151 mg/dL (70-99); POTASSIUM 3.9 mmol/L (3.5-5.1); SODIUM SERUM 131 mmol/L (136-145); UREA NITROGEN, BLOOD 35 mg/dL (8-21)
--- NOTE | 2022-02-04 08:00 | NUR ---
Initial Notes Patient awake and nonverbal. Patient able to nod to simple questions. Patient has been repositioned and HOB is elevated. TPN is running. GT is running at 20 mL, patient is tolerating well. Vital signs obtained, pt is afebrile. Will continue to monitor vital signs and urine output. Safety precautions in place, bed at lowest position, alarm on, and locked. Call light within reach.
[2022-02-04] MEDS: ASCORBIC ACID 500 MG TABLET PO SCH (08:57)
[2022-02-04] MEDS: DOCUSATE SODIUM 100 MG CAPSULE PO SCH (08:57)
[2022-02-04] MEDS: FERROUS SULFATE 325 MG TABLET.DR PO SCH (08:57)
[2022-02-04] MEDS: ATORVASTATIN 20 MG TABLET PO SCH (08:57)
[2022-02-04] MEDS: MULTIVITAMINS TAB 1 TABLET PO SCH (08:57)
[2022-02-04] MEDS: BALSAM PERU/CASTOR OIL 56.7 GM OINT...G. TP SCH (08:59)
--- NOTE | 2022-02-04 09:00 | NUR ---
feeding Residual is 5cc, Feeding is at 20cc/hr at this time. will increase to 30cc as ordered. will monitor.
--- NOTE | 2022-02-04 09:55 | NUR ---
MD- Urine output Spoke to Dr. Farfan regarding low output. No new orders. Will continue to monitor.
[2022-02-04 10:20] LABS: PHOSPHORUS 4.5 mg/dL (2.7-4.5)
[2022-02-04 10:27] LABS: TOTAL BILIRUBIN 0.1 mg/dL (0.0-1.0)
--- NOTE | 2022-02-04 12:38 | NUR ---
Discharge Planning: DCP arrange transport with [facility] [phone] CCT/with RT 7:30pm to [facility] P#[phone] for report to RM 212B. DCP made nurse aware and patient packet taken to nurse station.
--- NOTE | 2022-02-04 13:30 | NUR ---
ROUNDS DR. CARVALHO HERE AND MADE AWARE THAT PATIENT IS ACCEPTED IN [place] AND WAS ARRANGED AT [address] [facility]. PT STATED OKAY TO TRANSFER TO [place].
--- NOTE | 2022-02-04 15:16 | NUR ---
Nutrition F/U Admitting Diagnosis PNA, UTI Reviewed Pertinent Medical/Surgical Hx Medical Record RN Pt Medical History Comment: Chronic respiratory failure, s/p trach (not vent dependent), CKD, anemia, dysphagia COPD, CHF, hypothyroidism, DM. Pt also found w/ healthcare-associated bacterial PNA and UTI. 01/17 ST Swallow Evaluation - Recommended PO diet of puree/thin liquid with 1:1 feeder and full aspiration precautions. PO intake only when PMV is in place. 01/27 KUB revealed mild dilatation of the proximal small bowel without a definite point of focal obstruction; normal transit to the colon and rectum. Per Quail Farmer note 01/19: 1. Right Buttock: IAD with MASD. 2. Left Heel: Blanchable redness, present on admission. 3. Right Heel: Blanchable redness, present on admission SARS-CoV-2 Ag (Rapid) Negative 01/15 Subjective Information: RD bedside visit deferred d/t high workload. Per EMR review, pt is pending D/C to LTAC tonight. RD spoke w/ pt's PARKING CASHIER this afternoon. She reported that GI MD ordered to have pt's GT feeds increased by 10 ml to goal of 40 ml/hr. She reported that it was 10 ml/hr yesterday, and currently at 30 ml/hr -- LBM x1 this morning and pt seems to be tolerating TF well w/ about 10-20 ml GRV today. Per EMR review, GI MD plans to wait 3 weeks for fistula to fully mature prior to GJ tube conversion. Glucerna 1.2 at goal of 40 ml/hr yields 1152 kcal/day, 58 gm protein/day, and 973 ml free water/day. Pt is still receiving PPN support as well, currently providing 1189 kcal/day, 59 gm protein/day, 1632 ml total volume/day, and GIR: 1.6 mg CHO/kg/min. Together, EN and PPN provide 2341 kcal/day, 117 gm protein/day, which meets 113% of upper end of estimated caloric needs and 152% of upper end of estimated protein needs. Consider tapering off PPN support once pt reaches EN goal rate. Current Diet Order/Nutrition Support: Glucerna 1.2 at 10 ml/hr Free Water Flush: 50 ml Q6H via GT x3 days & PPN D20%, AA8.5% at 58 ml/hr, IL20% at 10 ml/hr x7 days Patient/Significant Other Unable To Verbalize Education Provided Not Indicated Pertinent Medications: zofran, reglan, protonix IV, synthroid, VIT C, ferrous sulfate, MVI, colace Pertinent Labs: H/H 7 L/22.2 L, BG 151 H, Ca 7.6 L, Phos 4.5 WNL, ALB 2 L; 01/29: TG 38 WNL Height (Feet) 5 feet Height (Inches) 2.00 inches Weight (Pounds) 131 pounds no changes since 01/15 Patient Weight 59.421 kg Body Mass Index 23.96 kg/m2 Usual Weight 147 lbs %UBW 89 %IBW 119 [place]/Adjusted Body Weight 110#/50 kg Weight Status Appropriate Usual Diet At Home Pureed Estimated Energy Expenditure (kcals/day) 2643-3571 kcals/day (30-35 kcals/kg CBW d/t infection, wound healing) NEW Estimated Protein Required (g/day) 59-89 g/day (1-1.5 g/kg CBW d/t COPD, wounds, CKD) Estimated Fluid Required (l/day) Per check clerk/hand winder d/t CKD/CHF Problem/Etiology/Signs/Symptoms Significant weight loss r/t unknown etiology and poor oral intake AEB 11% weight loss in 30 days. (*Ongoing) Altered nutrition-related labs R/T endocrine dysfunction AEB elevated BG lab values. (*Ongoing) Expected Outcomes/Goals Monitor nutrition support w/ goal of pt meeting greater than 80% of estimated needs, labs trending WNL, normal GI function, skin integrity, wt maintenance. Dietitian Recommendations * Glucerna 1.2 at 40 ml/hr (goal rate), Omar BID, Prosource TID, Free Water Flush: 50 ml Q6h via GT Provides: 1492 kcal/day, 108 gm protein/day, and 973 ml free water/day Meets: 84% of lower end of estimated caloric needs and 121% of upper end of estimated protein needs * Consider tapering off PPN support once pt reaches EN goal rate * Continue prokinetic agents for improved gut motility Follow Up High Risk: F/U in 2-3 days
--- NOTE | 2022-02-04 15:35 | NUR ---
Dietitian Recommendations * Glucerna 1.2 at 40 ml/hr (goal rate), Omar BID, Prosource TID, Free Water Flush: 50 ml Q6h via GT Provides: 1492 kcal/day, 108 gm protein/day, and 973 ml free water/day Meets: 84% of lower end of estimated caloric needs and 121% of upper end of estimated protein needs * Consider tapering off PPN support once pt reaches EN goal rate * Continue prokinetic agents for improved gut motility LP, RD Please refer to Nutrition F/U for details.
--- NOTE | 2022-02-04 15:43 | NUR ---
CONSULTATION PAGED/CALLED Reason for Consultation: [] KIM Person Who was Notified: [] KILEY Consulting Physician: [] DR POLANCO Momd Teacher Specialty: [] NEPRHOLOGIST Ordering Physician: [] DR CARVALHO
--- NOTE | 2022-02-04 16:00 | NUR ---
MD ROUNDS SEEN BY DR. THOMASON AND AWARE OF INCREASE WBC AND TRANSFER TO [facility].
--- NOTE | 2022-02-04 16:25 | NUR ---
feeding residual is 20cc at this time. will monitor.
[2022-02-04] MEDS: FLUCONAZOLE 200 mg/ NS 100 ML IV SCH (17:39)
--- NOTE | 2022-02-04 18:30 | NUR ---
CLOSING Patient resting. Family at bedside. Patient is to be transferred to [facility]. No respiratory distress noted. SPo2 is 95%. Will report to incoming nurse. Safety precautions in place and call light within reach. Daughter is at bedside.
--- NOTE | 2022-02-04 18:53 | NUR ---
TRYING TO GIVE REPORT AT [facility] BUT NO ONE IS ANSWERING THE PHONE AT THIS TIME.
--- NOTE | 2022-02-04 18:59 | NUR ---
[facility] CALLED AND THEY GONNA BE LATE BY AN HOUR.
[2022-02-04] MEDS ORDERED: TPN PERIPHERAL IV SCH ×9 (21:00)
[2022-02-04] MEDS ORDERED: [UNRECOGNIZED DRUG - OTHER] IV SCH ×9 (21:00)
[2022-02-04] MEDS ORDERED: SODIUM ACETATE IV SCH ×9 (21:00)
[2022-02-04] MEDS ORDERED: POTASSIUM CHLORIDE IV SCH ×9 (21:00)
[2022-02-05] MEDS: PANTOPRAZOLE SODIUM 40 MG/VIAL (PROTONIX) IVP SCH ×3 (00:27→21:46)
[2022-02-05] MEDS: FAT EMULSIONS 250 ML IV SCH ×2 (00:27→21:38)
[2022-02-05] MEDS: GABAPENTIN 300 MG CAPSULE PO SCH ×3 (00:28→21:46)
[2022-02-05 00:40] VITALS: BP_SYST 92
--- NOTE | 2022-02-05 01:26 | NUR ---
PATIENT'S DISCHARGE PLACED ON HOLD, DUE TO A LOW BLOOD PRESSURE. [facility] STAFF MADE AWARE. DR. GREY. RECEIVED ORDER TO GIVE ALBUMIN. WILL CONTINUE TO MONITOR.
[2022-02-05] MEDS: D5NS 1,000 ML IV SCH (04:09)
--- NOTE | 2022-02-05 04:36 | NUR ---
Patient gtse paatent and intact. Residual 40 ml. HOB elevated. Will continue to monitor. Addendum: 02/05/22 at 0438 by [facility] core extruder Patient hannah patent and intact. Residual 40 ml. HOB elevated. Turned q2. Will continue to monitor.
[2022-02-05] MEDS: ALBUTEROL SULFATE 0.083% 2.5 MG/3 ML VIAL.NEB INH SCH ×4 (05:48→19:49)
[2022-02-05] MEDS: clonazePAM 0.5 MG TABLET PO SCH ×3 (05:49→21:46)
[2022-02-05] MEDS: METOCLOPRAMIDE HCL 10 MG/2 ML VIAL IVP SCH ×3 (05:49→17:27)
[2022-02-05] MEDS: LEVOTHYROXINE SODIUM 0.125 MG TABLET PO SCH (05:49)
[2022-02-05 07:26] LABS: ALANINE AMINOTRANSFERASE 80 U/L (12-78); ALBUMIN 2.4 g/dL (3.4-4.8); ANION GAP 13 (5-15); ASPARTATE AMINOTRANSFERASE 72 U/L (10-37); CALCIUM 8.7 mg/dL (8.4-11.0); CHLORIDE 104 mmol/L (98-107); CREATININE 2.48 mg/dL (0.55-1.30); GLUCOSE 129 mg/dL (70-99); PHOSPHORUS 5.6 mg/dL (2.7-4.5); POTASSIUM 4.7 mmol/L (3.5-5.1); SODIUM SERUM 133 mmol/L (136-145); TOTAL BILIRUBIN 0.1 mg/dL (0.0-1.0); UREA NITROGEN, BLOOD 38 mg/dL (8-21)
--- NOTE | 2022-02-05 08:05 | NUR ---
Patient stable with RT at bedside. Checked blood sugar: 128 mg/dl - no coverage required.
[2022-02-05] MEDS: SODIUM BICARBONATE 8.4% JECT 150 MEQ in D5W 1,000 ML IVP SCH ×2 (08:10→17:26)
[2022-02-05] MEDS: CARVEDILOL 25 MG TABLET (COREG) PO SCH ×2 (09:00→21:00)
[2022-02-05] MEDS: DOCUSATE SODIUM 100 MG CAPSULE PO SCH (09:47)
[2022-02-05] MEDS: CEFTAROLINE FOSAMIL ACETATE 600 MG in NS 250 ML IV SCH ×2 (09:47→21:46)
[2022-02-05] MEDS: ASCORBIC ACID 500 MG TABLET PO SCH (09:48)
[2022-02-05] MEDS: FERROUS SULFATE 325 MG TABLET.DR PO SCH (09:48)
[2022-02-05] MEDS: ALPRAZolam 0.25 MG TABLET PO SCH ×2 (09:48→21:46)
[2022-02-05] MEDS: MULTIVITAMINS TAB 1 TABLET PO SCH (09:48)
[2022-02-05] MEDS: PEG 400/HYPROMELLOSE/GLYCERIN 15 ML DROPS RIGHT EYE SCH ×4 (09:49→21:47)
[2022-02-05] MEDS: BALSAM PERU/CASTOR OIL 56.7 GM OINT...G. TP SCH (09:50)
[2022-02-05] MEDS ORDERED: [UNRECOGNIZED DRUG - OTHER] IV SCH ×14 (10:15→21:00)
[2022-02-05] MEDS ORDERED: MAGNESIUM SULFATE IV SCH ×14 (10:15→21:00)
[2022-02-05] MEDS ORDERED: SODIUM ACETATE IV SCH ×14 (10:15→21:00)
[2022-02-05] MEDS ORDERED: TPN PERIPHERAL IV SCH ×14 (10:15→21:00)
[2022-02-05] MEDS ORDERED: MVI IV SCH ×14 (10:15→21:00)
--- NOTE | 2022-02-05 10:40 | NUR ---
Patient stable with Dr. Sotomayor at bedside.
[2022-02-05 12:40] VITALS: BP_SYST 108
--- NOTE | 2022-02-05 13:57 | NUR ---
Scheduled medications given per order. Patient stable with no respiratory distress noted.
--- NOTE | 2022-02-05 15:02 | NUR ---
INFORMED REMEDIOS CACERES THAT THE PATIENT HAS BEEN OFF THE TELE MONITOR FOR MORE THEN 30 MINUTES
[2022-02-05 16:22] VITALS: BP_SYST 110
[2022-02-05] MEDS: FLUCONAZOLE 200 mg/ NS 100 ML IV SCH (17:26)
--- NOTE | 2022-02-05 17:35 | NUR ---
Checked blood sugar: 110 mg/dl - no coverage required. Patient stable with Dr. Gillespie at bedside.
--- NOTE | 2022-02-05 18:29 | NUR ---
Patient stable throughout shift.
--- NOTE | 2022-02-05 19:30 | NUR ---
Patient received from AM shift nurse. Patient is awake non. alert, does not respond, unable to communicate needs. No s/s of distress is noted. Chest rise is even and unlabored and patient is on a ventilator with trach. Normal heart sounds present on tele monitoring. Abdominal hernia noted to the abdomen, with peg tube noted above the hernia. Patient is generally swollen/edematous +3 with fluid weeping in large amounts. PIV to upper LA. JOSÉ ANTONIO PICC line noted and infusing TPN with lipids and Sodium Bicarb in D5. Patient BP was noted to be low at the time of assessment 99/39. unable to palpate Pedal pulses due to edema. AM shift nurse reported that patient has orders for blood transfusion but blood is not available from blood bank yet.
[2022-02-05 20:00] VITALS: BP_SYST 99
--- NOTE | 2022-02-05 21:45 | NUR ---
lab called prbc ready. endorsed to martha
--- NOTE | 2022-02-05 21:50 | NUR ---
paged dr hester for orders for low bp.
--- NOTE | 2022-02-05 21:50 | NUR ---
dr hester called back spoke with nurse
--- NOTE | 2022-02-05 21:50 | NUR ---
Patient's blood pressure was reassessed prior to biomedical photographer and noted to be at 77/35 MD called. MD was notified that BP was low was reassessed again at that time and found to be at 88/38. MD gave nurse orders to start on levophed per protocol and transfer to ICU to keep patient BP above 100. Will carry out orders.
[2022-02-05] MEDS ORDERED: METOCLOPRAMIDE HCL 10 MG/2 ML VIAL IVP PRN (23:50)
[2022-02-06] VITALS (31 sets, daily range): BP systolic 70–117
--- NOTE | 2022-02-06 | NUR ---
Patient transferred to ICU endorse to ICU nurse Fermin
--- NOTE | 2022-02-06 00:30 | NUR ---
Patient transferred from Tele to ICU. Undersigned Fermin Palomo RN to assume care.
[2022-02-06] MEDS: ALBUTEROL SULFATE 0.083% 2.5 MG/3 ML VIAL.NEB INH SCH ×3 (02:28→13:10)
[2022-02-06] MEDS ORDERED: NOREPINEPHRINE 4 MG/4 ML VIAL IV ONE (02:32)
[2022-02-06] MEDS: NOREPINEPHRINE BITARTRATE 4 MG in NS 246 ML IV PRN ×2 (02:50→13:57)
[2022-02-06] MEDS: clonazePAM 0.5 MG TABLET PO SCH ×3 (07:00→22:04)
--- NOTE | 2022-02-06 07:30 | NUR ---
Received report to assume care of the patient.
[2022-02-06 07:39] LABS: ALANINE AMINOTRANSFERASE 60 U/L (12-78); ALBUMIN 1.8 g/dL (3.4-4.8); ANION GAP 13 (5-15); ASPARTATE AMINOTRANSFERASE 56 U/L (10-37); CALCIUM 7.4 mg/dL (8.4-11.0); CHLORIDE 100 mmol/L (98-107); CREATININE 2.81 mg/dL (0.55-1.30); GLUCOSE 146 mg/dL (70-99); POTASSIUM 4.2 mmol/L (3.5-5.1); SODIUM SERUM 131 mmol/L (136-145); TOTAL BILIRUBIN 0.5 mg/dL (0.0-1.0); UREA NITROGEN, BLOOD 50 mg/dL (8-21)
[2022-02-06 08:48] LABS: TRIGLYCERIDES 140 mg/dL (30-150)
[2022-02-06 08:56] LABS: HEMATOCRIT 30.7 % (36-48); HEMOGLOBIN 9.5 g/dL (12.0-16.0); MEAN CORPUSCULAR HEMOGLOBIN 30 pg (27-31); MEAN CORPUSCULAR HGB CONC 31 % (32-36); MEAN CORPUSCULAR VOLUME 96 fL (79.0-98.0); PLATELET COUNT (AUTO) 87 K/uL (130-430); RED BLOOD CELL COUNT(AUTO) 3.19 MIL/uL (4.2-6.2); RED CELL DISTRIBUTION WIDTH 19.5 % (9.0-15.0)
[2022-02-06] MEDS: CARVEDILOL 25 MG TABLET (COREG) PO SCH ×2 (09:00→20:56)
[2022-02-06] MEDS: ALPRAZolam 0.25 MG TABLET PO SCH ×2 (09:00→20:56)
[2022-02-06 09:19] LABS: WHITE BLOOD COUNT (AUTO) 27.8 K/uL (4.8-10.8)
[2022-02-06] MEDS: GABAPENTIN 300 MG CAPSULE PO SCH ×2 (09:58→20:55)
[2022-02-06] MEDS: MULTIVITAMINS TAB 1 TABLET PO SCH (09:58)
[2022-02-06] MEDS: LEVOTHYROXINE SODIUM 0.125 MG TABLET PO SCH (09:58)
[2022-02-06] MEDS: ASCORBIC ACID 500 MG TABLET PO SCH (09:58)
[2022-02-06] MEDS: PANTOPRAZOLE SODIUM 40 MG/VIAL (PROTONIX) IVP SCH ×2 (09:58→20:56)
[2022-02-06] MEDS: DOCUSATE SODIUM 100 MG CAPSULE PO SCH (09:58)
[2022-02-06] MEDS: FERROUS SULFATE 325 MG TABLET.DR PO SCH (09:58)
--- NOTE | 2022-02-06 10:00 | NUR ---
Both of patients arms weeping right greater than left. Both arms wrapped in towels . Legs very edematous as well. Heels lifted off bed on pillows.
[2022-02-06] MEDS: CEFTAROLINE FOSAMIL ACETATE 600 MG in NS 250 ML IV SCH ×2 (10:01→20:55)
[2022-02-06] MEDS ORDERED: SODIUM BICARBONATE 8.4% VIAL 50 MEQ/50 ML VIAL INJ ONE (12:30)
[2022-02-06 12:47] LABS: BAND % (MANUAL) 44 % (0-6); LYMPHOCYTES % (MANUAL) 9 % (20-46)
--- NOTE | 2022-02-06 12:47 | NUR ---
MD ALVARO ZAMORA FOR ORDERS SPOKE TO: HETAL
[2022-02-06 12:48] LABS: ATYPICAL LYMPHOCYTES % 0 % (0-0); BASOPHILS % (MANUAL) 0 % (0-2); EOSINOPHILS % (MANUAL) 0 % (0-7); METAMYELOCYTES % 3 % (0-0); MONOCYTES % (MANUAL) 4 % (0-11); MYELOCYTES % 2 % (0-0)
[2022-02-06] MEDS: PEG 400/HYPROMELLOSE/GLYCERIN 15 ML DROPS RIGHT EYE SCH ×4 (13:00→21:04)
[2022-02-06] MEDS: BALSAM PERU/CASTOR OIL 56.7 GM OINT...G. TP SCH (13:26)
[2022-02-06] MEDS ORDERED: COMMUNICATION ORDER XX ONE (13:30)
[2022-02-06] MEDS: ALBUMIN HUMAN 25% 100 ML IV SCH ×3 (13:58→20:55)
--- NOTE | 2022-02-06 15:39 | NUR ---
Paged Dr. Murray to let her know there is no urine output despite IVF infusing at 400cc+/hr between all infusates. Continues to weep both arms, right greater than left. Extremities edematous 3+ pitting.
--- NOTE | 2022-02-06 15:44 | NUR ---
Orders left for lasix by Dr. Murray.
[2022-02-06] MEDS ORDERED: FUROSEMIDE 40 MG/4 ML VIAL IVP ONE (15:45)
[2022-02-06] MEDS: SODIUM BICARBONATE 8.4% JECT 150 MEQ in D5W 1,000 ML IVP SCH ×2 (17:00→19:42)
[2022-02-06] MEDS ORDERED: SODIUM BICARBONATE 8.4% JECT 50 MEQ/50 ML SYRINGE ONE (19:07)
--- NOTE | 2022-02-06 19:10 | NUR ---
Opening Notes: Received bedside report from Tracie, patient is obtunded and does not respond to pain. Patient on trach with AC 12, 400, 50%, 5. G-tube with Glucerna running at 40 cc/hr. Patient has Left upper midline with d5 NS w/ bicarb running at 125 Ml/hr, Levophed running at 0.015, Lipids running at 10 ml/hr, TPN running at 57 ml/hr. Patient is anuric, with sacral DTI. bed at the lowest level, brakes are locked, appropriate side rails up.
--- NOTE | 2022-02-06 19:20 | NUR ---
lasix 40 mg IVP given. Endorsed to oncoming RN to assess response.
--- NOTE | 2022-02-06 19:30 | NUR ---
Report given to oncoming staff to assume care of the patient. Levophed at 0.150 mcgs/kg/min
[2022-02-06] MEDS: FLUCONAZOLE 200 mg/ NS 100 ML IV SCH (19:34)
[2022-02-06] MEDS: FAT EMULSIONS 250 ML IV SCH (20:59)
[2022-02-06] MEDS ORDERED: SODIUM ACETATE IV SCH ×8 (21:00)
[2022-02-06] MEDS ORDERED: POTASSIUM ACETATE IV SCH ×8 (21:00)
[2022-02-06] MEDS ORDERED: TPN PERIPHERAL IV SCH ×8 (21:00)
[2022-02-06] MEDS ORDERED: [UNRECOGNIZED DRUG - OTHER] IV SCH ×8 (21:00)
[2022-02-06] MEDS: MINERAL OIL/PETROLATUM,WHITE 3.5 GM EYE OINT. OP SCH (21:04)
[2022-02-07] VITALS (45 sets, daily range): BP systolic 54–133
[2022-02-07] MEDS: NOREPINEPHRINE BITARTRATE 4 MG in NS 246 ML IV PRN (00:12)
[2022-02-07] MEDS: SODIUM BICARBONATE 8.4% JECT 150 MEQ in D5W 1,000 ML IVP SCH ×3 (02:12→19:25)
[2022-02-07] MEDS: ALBUTEROL SULFATE 0.083% 2.5 MG/3 ML VIAL.NEB INH SCH ×6 (04:11→23:36)
--- NOTE | 2022-02-07 06:00 | NUR ---
Patient had 4 loose stools, 3 loose stools during day shift. Changed bedding 4 times, therefore inserted flex seal. Talked with Fermin (charge) if this was ok and he said yes.
[2022-02-07] MEDS: clonazePAM 0.5 MG TABLET PO SCH ×3 (06:39→21:29)
[2022-02-07] MEDS: LEVOTHYROXINE SODIUM 0.1 MG VIAL IVP SCH (06:39)
[2022-02-07 07:20] LABS: HEMATOCRIT 26.9 % (36-48); HEMOGLOBIN 8.6 g/dL (12.0-16.0); MEAN CORPUSCULAR HEMOGLOBIN 31 pg (27-31); MEAN CORPUSCULAR HGB CONC 32 % (32-36); MEAN CORPUSCULAR VOLUME 96 fL (79.0-98.0); PLATELET COUNT (AUTO) 55 K/uL (130-430); RED BLOOD CELL COUNT(AUTO) 2.81 MIL/uL (4.2-6.2); RED CELL DISTRIBUTION WIDTH 19.3 % (9.0-15.0); WHITE BLOOD COUNT (AUTO) 28.3 K/uL (4.8-10.8)
[2022-02-07 07:34] LABS: ALANINE AMINOTRANSFERASE 49 U/L (12-78); ALBUMIN 2.4 g/dL (3.4-4.8); ANION GAP 11 (5-15); ASPARTATE AMINOTRANSFERASE 52 U/L (10-37); CHLORIDE 94 mmol/L (98-107); CREATININE 2.92 mg/dL (0.55-1.30); GLUCOSE 109 mg/dL (70-99); PHOSPHORUS 4.7 mg/dL (2.7-4.5); POTASSIUM 3.8 mmol/L (3.5-5.1); SODIUM SERUM 128 mmol/L (136-145); TOTAL BILIRUBIN 0.3 mg/dL (0.0-1.0); UREA NITROGEN, BLOOD 55 mg/dL (8-21)
--- NOTE | 2022-02-07 07:35 | NUR ---
Endorsed patient to [facility].
[2022-02-07] MEDS ORDERED: NOREPINEPHRINE 4 MG/4 ML VIAL IV ONE (08:45)
[2022-02-07] MEDS ORDERED: NOREPINEPHRINE BITARTRATE 4 MG in D5W 246 ML IV PRN (09:00)
[2022-02-07] MEDS: ALPRAZolam 0.25 MG TABLET PO SCH ×2 (09:00→20:46)
[2022-02-07] MEDS: CEFTAROLINE FOSAMIL ACETATE 600 MG in NS 250 ML IV SCH ×2 (09:35→20:44)
[2022-02-07] MEDS: PANTOPRAZOLE SODIUM 40 MG/VIAL (PROTONIX) IVP SCH ×2 (09:35→20:44)
[2022-02-07] MEDS: DOCUSATE SODIUM 100 MG CAPSULE PO SCH (09:36)
[2022-02-07] MEDS: CARVEDILOL 25 MG TABLET (COREG) PO SCH ×2 (09:37→21:20)
[2022-02-07] MEDS: FERROUS SULFATE 325 MG TABLET.DR PO SCH (09:37)
[2022-02-07] MEDS: MULTIVITAMINS TAB 1 TABLET PO SCH (09:37)
[2022-02-07] MEDS: GABAPENTIN 300 MG CAPSULE PO SCH ×2 (09:37→20:44)
[2022-02-07] MEDS: ASCORBIC ACID 500 MG TABLET PO SCH (09:38)
[2022-02-07] MEDS: BALSAM PERU/CASTOR OIL 56.7 GM OINT...G. TP SCH (09:43)
[2022-02-07] MEDS: PEG 400/HYPROMELLOSE/GLYCERIN 15 ML DROPS RIGHT EYE SCH ×4 (09:44→20:47)
--- NOTE | 2022-02-07 11:23 | NUR ---
Information Systems Administrator BELLA Salomon received a message from patient's daughter Adriane requesting an update on her mother. She shared she understood that patient was going to be transferred to [place], but she contacted them and her mother was not there. BELLA Salomon returned phone call to patient's daughter Adriane . A voicemail was left informing her patient was transferred back to the ICU and provided extension to the unit. BELLA will continue to be available as needed
[2022-02-07] MEDS ORDERED: LEVOFLOXACIN 250 MG/D5W 50 ML IV SCH (13:00)
[2022-02-07 14:21] LABS: ATYPICAL LYMPHOCYTES % 3 % (0-0); BAND % (MANUAL) 31 % (0-6); BASOPHILS % (MANUAL) 0 % (0-2); EOSINOPHILS % (MANUAL) 2 % (0-7); LYMPHOCYTES % (MANUAL) 5 % (20-46); METAMYELOCYTES % 5 % (0-0); MONOCYTES % (MANUAL) 13 % (0-11)
[2022-02-07] MEDS ORDERED: POTASSIUM CHLORIDE 20 MEQ/PKT PACKET PO ONE (14:30)
[2022-02-07] MEDS ORDERED: SODIUM BICARBONATE 8.4% JECT 50 MEQ/50 ML SYRINGE IVP ONE (14:30)
--- NOTE | 2022-02-07 14:30 | NUR ---
CHANGED TO AC 16 PER MD CLARKE'S ORDER. PATIENT ON VENT CURRENT SETTINGS, AC16, VT 400, PEEP +5, FIO2 70%. SPO2 95%, HR 94. ABG FOLLOWS.
[2022-02-07] MEDS: FLUCONAZOLE 200 mg/ NS 100 ML IV SCH (17:06)
[2022-02-07] MEDS: NOREPINEPHRINE BITARTRATE 32 MG in NS 218 ML IV PRN (17:54)
--- NOTE | 2022-02-07 19:05 | NUR ---
Opening Notes: Received bedside report from [facility], patient is obtunded and not responding to painful stimuli. Left Upper arm PICC 2 lumen is clean and dry, D5W with Bicard running at 125 mL/hr, Lipids 10 mL/hr, TPN 57 mL/hr, and Levo 0.7. Patient is still anuric with lagos cath, has a flex seal with 700 mL from day shift. Peeled and peaked sacral DTI, patient has pitting edema to all extremities that are weeping. Trach setting AC 16, 400, 70%, 5. Patient has G-tube with Glucerna running at 40 mL/hr. Bed at the lowest level, brakes are locked, appropriate side rails up, call light within reach.
[2022-02-07] MEDS: MINERAL OIL/PETROLATUM,WHITE 3.5 GM EYE OINT. OP SCH (20:46)
[2022-02-07] MEDS: FAT EMULSIONS 250 ML IV SCH (20:50)
[2022-02-07] MEDS: TPN PERIPHERAL IV SCH ×8 (20:55)
[2022-02-07] MEDS: POTASSIUM ACETATE IV SCH ×8 (20:55)
[2022-02-07] MEDS: SODIUM CHLORIDE IV SCH ×8 (20:55)
[2022-02-07] MEDS: [UNRECOGNIZED DRUG - OTHER] IV SCH ×8 (20:55)
[2022-02-08] VITALS (41 sets, daily range): BP systolic 71–120
[2022-02-08] MEDS: SODIUM BICARBONATE 8.4% JECT 150 MEQ in D5W 1,000 ML IVP SCH ×2 (04:40→14:15)
[2022-02-08] MEDS: TPN PERIPHERAL IV SCH ×8 (04:41)
[2022-02-08] MEDS: [UNRECOGNIZED DRUG - OTHER] IV SCH ×8 (04:41)
[2022-02-08] MEDS: SODIUM CHLORIDE IV SCH ×8 (04:41)
[2022-02-08] MEDS: POTASSIUM ACETATE IV SCH ×8 (04:41)
[2022-02-08] MEDS: LEVOTHYROXINE SODIUM 0.1 MG VIAL IVP SCH (06:31)
[2022-02-08] MEDS: clonazePAM 0.5 MG TABLET PO SCH ×2 (06:31→14:00)
--- NOTE | 2022-02-08 07:10 | NUR ---
Endorsed patient to [facility]. Levo is running at 0.8 mcg/kg/min, 100 mL of stool, anuric.
[2022-02-08] MEDS: ALBUTEROL SULFATE 0.083% 2.5 MG/3 ML VIAL.NEB INH SCH ×3 (07:15→19:44)
[2022-02-08 07:22] LABS: ALANINE AMINOTRANSFERASE 47 U/L (12-78); ALBUMIN 1.8 g/dL (3.4-4.8); ANION GAP 11 (5-15); ASPARTATE AMINOTRANSFERASE 72 U/L (10-37); CHLORIDE 90 mmol/L (98-107); CREATININE 2.78 mg/dL (0.55-1.30); GLUCOSE 99 mg/dL (70-99); PHOSPHORUS 4.4 mg/dL (2.7-4.5); POTASSIUM 4.7 mmol/L (3.5-5.1); SODIUM SERUM 127 mmol/L (136-145); TOTAL BILIRUBIN 0.5 mg/dL (0.0-1.0); UREA NITROGEN, BLOOD 62 mg/dL (8-21)
[2022-02-08 07:54] LABS: HEMOGLOBIN 8.3 g/dL (12.0-16.0); MEAN CORPUSCULAR HEMOGLOBIN 30 pg (27-31); MEAN CORPUSCULAR HGB CONC 31 % (32-36); MEAN CORPUSCULAR VOLUME 97 fL (79.0-98.0); PLATELET COUNT (AUTO) 69 K/uL (130-430); RED BLOOD CELL COUNT(AUTO) 2.78 MIL/uL (4.2-6.2)
[2022-02-08 08:40] LABS: WHITE BLOOD COUNT (AUTO) 59.3 K/uL (4.8-10.8)
[2022-02-08] MEDS: CEFTAROLINE FOSAMIL ACETATE 600 MG in NS 250 ML IV SCH ×2 (08:50→21:01)
[2022-02-08] MEDS: PANTOPRAZOLE SODIUM 40 MG/VIAL (PROTONIX) IVP SCH ×2 (08:50→21:05)
[2022-02-08] MEDS: DOCUSATE SODIUM 100 MG CAPSULE PO SCH (08:51)
[2022-02-08] MEDS: CARVEDILOL 25 MG TABLET (COREG) PO SCH ×2 (08:52→21:08)
[2022-02-08] MEDS: FERROUS SULFATE 325 MG TABLET.DR PO SCH (08:52)
[2022-02-08] MEDS: PEG 400/HYPROMELLOSE/GLYCERIN 15 ML DROPS RIGHT EYE SCH ×4 (08:53→21:08)
[2022-02-08] MEDS: GABAPENTIN 300 MG CAPSULE PO SCH ×2 (08:53→21:06)
[2022-02-08] MEDS: MULTIVITAMINS TAB 1 TABLET PO SCH (08:53)
[2022-02-08] MEDS: ASCORBIC ACID 500 MG TABLET PO SCH (08:53)
[2022-02-08] MEDS: ALPRAZolam 0.25 MG TABLET PO SCH ×2 (08:53→21:06)
[2022-02-08] MEDS: BALSAM PERU/CASTOR OIL 56.7 GM OINT...G. TP SCH (08:54)
[2022-02-08] MEDS ORDERED: FUROSEMIDE 40 MG/4 ML VIAL IVP ONE (11:00)
--- NOTE | 2022-02-08 12:09 | NUR ---
Nutrition F/U Admitting Diagnosis PNA, UTI Reviewed Pertinent Medical/Surgical Hx Medical Record RN Medical History Comment: Chronic respiratory failure, s/p trach (not vent dependent), CKD, anemia, dysphagia COPD, CHF, hypothyroidism, DM. Pt also found w/ healthcare-associated bacterial PNA and UTI. 01/17 ST Swallow Evaluation - Recommended PO diet of puree/thin liquid with 1:1 feeder and full aspiration precautions. PO intake only when PMV is in place. 01/21 S/P PEG placement 01/27 KUB revealed mild dilatation of the proximal small bowel without a definite point of focal obstruction; normal transit to the colon and rectum. Per County Auditor note 01/19: 1. Right Buttock: IAD with MASD. 2. Left Heel: Blanchable redness, present on admission. 3. Right Heel: Blanchable redness, present on admission SARS-CoV-2 Ag (Rapid) Negative 01/15 Subjective Information: RD attended ICU rounds pt w/ vent to trach, pt is tolerating TF w/ minimal GRV, pt has flexi seal d/t loose stools, PPN running at 57 ml/hr; pts daughter will fly in from out of state to determine plan of care. RN reported discussing D/C of TPN w/ MD d/t pt tolerating TF at goal rate, MD wishes to continue TPN and TF. Pts family does not want HD and is considering comfort care per physician notes. Per EMR review, pt became hypotensive and was transferred to ICU 02/04; Matias score 9 w/ DTI to R. buttocks and sacrum; 4+ pitting edema BLE, right arm and left arm; abd. is soft and distended w/ active bowel sounds; 100 ml stool output 5/3; TF Glucerna 1.2 at 40 ml/hr 5/3, GRV 5 ml 5/3; TF intakes 160 ml; pt on vent Ve: 10.2, Tmax: 36.6C. Glucerna 1.2 at goal of 40 ml/hr, w/ Omar BID and Prosource TID yields: 1492 kcal/day, 108 gm protein/day, and 973 ml free water/day. Pt is still receiving PPN support, currently providing 1189 kcal/day, 59 gm protein/day, 1632 ml total volume/day, and GIR: 1.6 mg CHO/kg/min. Together, EN and PPN provide 2681 kcal/day, 167 gm protein/day, which meets 228% of estimated caloric needs and 348% of upper end of estimated protein needs. Consider tapering off PPN support and holding Prosource. Current Diet Order/Nutrition Support: Glucerna 1.2 at 40 ml/hr, Omar BID, Prosource TID, Free Water Flush: 50 ml Q6H via GT x4 days & PPN D20%, AA8.5% at 55 ml/hr, IL20% at 10 ml/hr x11 days Patient/Significant Other Unable To Verbalize Education Provided Not Indicated Pertinent Medications: zofran, reglan, protonix IV, synthroid, VIT C, ferrous sulfate, MVI, colace, Lasix, D5% Sodium Bicarbonate at 125 ml/hr x 9 hr (providing 196 kcals/day) Pertinent Labs: WBC 59.3 H, Na 127 L, BUN 62 H, Cr 2.78 H, Ca 7 L, ALP 152 H, Alb 1.8 L Height (Feet) 5 feet Height (Inches) 2.00 inches Weight (Pounds) 131 pounds no changes since 01/15 Patient Weight 59.421 kg Body Mass Index 23.96 kg/m2 Usual Weight 147 lbs %UBW 89 %IBW 119 [place]/Adjusted Body Weight 110#/50 kg Weight Status Appropriate Usual Diet At Home Pureed *NEW* Estimated Energy Expenditure (kcals/day) 1175 kcals/day (PSU d/t critical illness, intubation; Ve: 10.2, Tmax: 36.6C) *NEW* Estimated Protein Required (g/day) 35-48 g/day (0.6-0.8 g/kg CBW d/t increasing BUN and Cr lab values) Estimated Fluid Required (l/day) Per burlap roll coverer/sheet mill supervisor d/t CKD/CHF Problem/Etiology/Signs/Symptoms Significant weight loss r/t unknown etiology and poor oral intake AEB 11% weight loss in 30 days. (*Improving w/ nutrition support) Altered nutrition-related labs R/T endocrine dysfunction AEB elevated BG lab values. (*Ongoing) Altered nutrition-related labs R/T renal dysfunction AEB elevated BUN and Cr lab values. (*New) Excessive calorie and protein intake R/T receiving both PPN and EN AEB receiving 228% of estimated caloric needs and 348% of upper end of estimated protein needs. (*New) Expected Outcomes/Goals Monitor nutrition support w/ goal of pt meeting greater than 80% of estimated needs, labs trending WNL, normal GI function, skin integrity, wt maintenance. Dietitian Recommendations * Glucerna 1.2 at 35 ml/hr (goal rate), Omar BID, Free Water Flush: 50 ml Q6h via GT Provides: 1168 kcal/day, 55 gm protein/day, and 973 ml free water/day Meets: 99% of estimated caloric needs and 115% of upper end of estimated protein needs * Hold Prosource d/t worsening renal parameters * Consider tapering off PPN support d/t EN tolerance at goal rate. Follow Up High Risk: F/U in 2-3 days Addendum: 02/08/22 at [address] NANCY spoke to pt's primary RN via telephone and relayed recommendations. NANCY LESTER
--- NOTE | 2022-02-08 12:11 | NUR ---
Dietitian Recommendations * Glucerna 1.2 at 35 ml/hr (goal rate), Omar BID, Free Water Flush: 50 ml Q6h via GT Provides: 1168 kcal/day, 55 gm protein/day, and 973 ml free water/day Meets: 99% of estimated caloric needs and 115% of upper end of estimated protein needs * Hold Prosource d/t worsening renal parameters * Consider tapering off PPN support d/t EN tolerance at goal rate and pt currently receiving 228% of estimated caloric needs and 348% of upper end of estimated protein needs Please refer to Nutrition F/U note for details.
[2022-02-08 13:30] LABS: ATYPICAL LYMPHOCYTES % 5 % (0-0); BAND % (MANUAL) 41 % (0-6); BASOPHILS % (MANUAL) 0 % (0-2); EOSINOPHILS % (MANUAL) 0 % (0-7); LYMPHOCYTES % (MANUAL) 11 % (20-46); METAMYELOCYTES % 4 % (0-0); MONOCYTES % (MANUAL) 2 % (0-11)
[2022-02-08 13:31] LABS: BLASTS, MANUAL % 2 % (0-0); MYELOCYTES % 1 % (0-0)
[2022-02-08] MEDS: FLUCONAZOLE 200 mg/ NS 100 ML IV SCH (17:21)
[2022-02-08] MEDS: NOREPINEPHRINE BITARTRATE 32 MG in NS 218 ML IV PRN (17:25)
--- NOTE | 2022-02-08 20:00 | NUR ---
RECEIVED REPORT FROM OFFGOING RNSARINA. ASSUMED CARE, AND STARTED ASSESSMENT.
--- NOTE | 2022-02-08 20:57 | NUR ---
DR CARVALHO WAS CALLED FOR ORDERS FOR ADDITIONAL PRESSORS BECAUSE THE PATIENT'S B/P WAS FALLING BELOW THE EIGHTIES, AND IT WAS IMPOSSIBLE TO RECORD O2 SATS. DR CARVALHO, REITERATED THAT THE PATIENT WAS A DNR AND REFUSED TO GIVE ANY NEW ORDERS.
[2022-02-08] MEDS ORDERED: TPN PERIPHERAL IV SCH ×7 (21:00)
[2022-02-08] MEDS ORDERED: [UNRECOGNIZED DRUG - OTHER] IV SCH ×7 (21:00)
[2022-02-08] MEDS ORDERED: metroNIDAZOLE 500 mg/NS 100 ML IV SCH (21:00)
[2022-02-08] MEDS ORDERED: MAGNESIUM SULFATE IV SCH ×7 (21:00)
[2022-02-08] MEDS ORDERED: SODIUM CHLORIDE IV SCH ×7 (21:00)
[2022-02-08] MEDS: FAT EMULSIONS 250 ML IV SCH (21:02)
[2022-02-08] MEDS: MINERAL OIL/PETROLATUM,WHITE 3.5 GM EYE OINT. OP SCH (21:05)
--- NOTE | 2022-02-08 22:40 | NUR ---
PATIENT'S PULSE RATE BEGAN TO RAPIDLY DECREASE. BY THE TIME WE WERE ABLE TO CALL THE MODIFIED CODE SHE HAD FLATLINED. CHEMICAL CODE WAS PERFORMED AND THE PATIENT'S HEART RATE AND PALPABLE PULSE RETURNED. WILL CONTINUE TO MONITOR AND ASSESS.
--- NOTE | 2022-02-08 23:39 | NUR ---
PATIENT AGAIN YAKELIN'D DOWN AND THE CODE WAS AGAIN CALLED. THIS TIME THE PATIENT WAS PRONOUNCED BY THE ER DOCTOR, DR COX. AND THE CODE WAS DISCONTINUED. THE PATIENT'S DAUGHTER WAS CALLED AND A MESSAGE LEFT INFORMING HER OF HER MOTHER'S DEMISE. THE PACKAGING TECH AND [facility] WERE ALSO CALLED.
--- NOTE | 2022-02-09 00:29 | NUR ---
Dr. Светлана Garcia Said doctors were notified of the passing of the patient. Addendum: 02/09/22 at 0032 by Melissa Zepeda [facility] Vasquez is masonry installer for Dr. Mcmahon.
== END 2022-02-08 23:40 | DRG 207 ==
LOC: SED 09:43 → STU 12:00 → SIC 01-17 15:05 → STU 01-23 19:45 → SIC 02-06 00:40
PROVIDERS: ADMIT Internal Medicine; ATTEND Family Medicine
PROC: 5A1955Z Respiratory Ventilation, Greater than 96 Consecutive Hours (ICD-10-PCS; principal; 2022-01-18)
PROC: 05HY33Z Insertion of Infusion Device into Upper Vein, Percutaneous Approach (ICD-10-PCS; 2022-01-19)
PROC: B54NZZA Ultrasonography of Left Upper Extremity Veins, Guidance (ICD-10-PCS; 2022-01-19)
PROC: 3E0336Z Introduction of Nutritional Substance into Peripheral Vein, Percutaneous Approach (ICD-10-PCS; 2022-01-20)
PROC: 30233N1 Transfusion of Nonautologous Red Blood Cells into Peripheral Vein, Percutaneous Approach (ICD-10-PCS; 2022-01-20)
PROC: 0DH63UZ Insertion of Feeding Device into Stomach, Percutaneous Approach (ICD-10-PCS; 2022-01-21)
PROC: 0D758ZZ Dilation of Esophagus, Via Natural or Artificial Opening Endoscopic (ICD-10-PCS; 2022-01-21 08:00)
PROC: 05HY33Z Insertion of Infusion Device into Upper Vein, Percutaneous Approach (ICD-10-PCS; 2022-01-24)
PROC: B54MZZA Ultrasonography of Right Upper Extremity Veins, Guidance (ICD-10-PCS; 2022-01-24)
PROC: 02HV33Z Insertion of Infusion Device into Superior Vena Cava, Percutaneous Approach (ICD-10-PCS; 2022-02-03)
PROC: B548ZZA Ultrasonography of Superior Vena Cava, Guidance (ICD-10-PCS; 2022-02-03)
DX: J15.212 Pneumonia due to Methicillin resistant Staphylococcus aureus (principal); A41.9 Sepsis, unspecified organism; J96.20 Acute and chronic respiratory failure, unspecified whether with hypoxia or hypercapnia; E43 Unspecified severe protein-calorie malnutrition; R65.21 Severe sepsis with septic shock; I13.0 Hypertensive heart and chronic kidney disease with heart failure and stage 1 through stage 4 chronic kidney disease, or unspecified chronic kidney disease; N39.0 Urinary tract infection, site not specified; J44.0 Chronic obstructive pulmonary disease with (acute) lower respiratory infection; Z99.11 Dependence on respirator [ventilator] status; K22.10 Ulcer of esophagus without bleeding; N17.9 Acute kidney failure, unspecified; E87.2 Acidosis; J69.0 Pneumonitis due to inhalation of food and vomit; Z66 Do not resuscitate; G89.4 Chronic pain syndrome; I50.9 Heart failure, unspecified; K29.60 Other gastritis without bleeding; K43.9 Ventral hernia without obstruction or gangrene; K44.9 Diaphragmatic hernia without obstruction or gangrene; K80.20 Calculus of gallbladder without cholecystitis without obstruction; E83.39 Other disorders of phosphorus metabolism; R00.1 Bradycardia, unspecified; E11.649 Type 2 diabetes mellitus with hypoglycemia without coma; E87.6 Hypokalemia; E11.22 Type 2 diabetes mellitus with diabetic chronic kidney disease; E86.0 Dehydration; K21.9 Gastro-esophageal reflux disease without esophagitis; K22.2 Esophageal obstruction; D53.9 Nutritional anemia, unspecified; E53.8 Deficiency of other specified B group vitamins; Z20.822 Contact with and (suspected) exposure to COVID-19; E03.9 Hypothyroidism, unspecified; N18.9 Chronic kidney disease, unspecified; Y95 Nosocomial condition; Z87.01 Personal history of pneumonia (recurrent); Z93.0 Tracheostomy status; Z68.24 Body mass index [BMI] 24.0-24.9, adult; Z79.899 Other long term (current) drug therapy
CPT/HCPCS: 36415; 36600; 43246; 71045; 74018; 74250-TC; 76376; 76604; 76770; 80048; 80053; 81000; 82570; 82607; 82746; 82803-TC; 82962; 83540; 83550; 83605; 83690; 83735; 83880; 84100; 84132; 84302; 84439; 84443; 84478; 84484; 85007; 85025; 85027; 85610-TC; 85730-TC; 86886; 86900; 86901; 86920; 87040; 87070-TC; 87081; 87086; 87186-TC; 87205-TC; 92610-GN; 93005; 93971; 94002; 94003; 94640; 94760; 96374; 99285; C9113; G0378; J0456; J0692; J0696; J0712; J1450; J1885; J1940; J1956; J2020; J2250; J2405; J2765; J2916; J3010; J3475; J3480; J3490; J7050; J7060; J7131; J7613; P9021; Q0163; Q9963; Q9964